=== PATIENT | female | born 1985 | race Caucasian/White ===

== ENCOUNTER → 2017-08-16 13:34 | Outpatient (CLI) | payer MEDICAID, SELFPAY ==
--- NOTE | 2017-08-16 13:38 | MR_ITS ---
MR head/brain wo/w con HISTORY: Severe headache above the eye with lightheadedness and dizziness with facial numbness and tingling, headache above the right eye ITS.REASON: PARESTHESIA, HEADACHE ABOVE THE EYE ORDERING PHYSICIAN: Angelika Armstrong PATIENT AGE: 32 years COMPARISON: None TECHNIQUE: Standard multiplanar multiecho sequences are performed without and with gadolinium enhancement . FINDINGS: No midline shift, mass effect, and cranial hemorrhage, or hydrocephalus. No evidence of acute infarction. No enhancing lesions are evident. The cerebellopontine angle, cerebellum, and brainstem are unremarkable. The pituitary, optic chiasm, and corpus callosum have an unremarkable appearance. No cerebellar ectopia. No large aneurysms evident. Small aneurysms may not be detected with this technique and may be better evaluated with MRA if clinically warranted. No sinus air-fluid level or mastoid effusion IMPRESSION: Negative MRI of the brain without and with contrast.
== END ==
PROVIDERS: Family Provider Internal Medicine Adolescent Medicine; Visit Provider Nurse Practitioner Family
DX: R20.2 Paresthesia of skin (principal); R51 Headache
CPT/HCPCS: 70553; A9576

== ENCOUNTER → 2018-07-26 11:46 | Outpatient (CLI) | payer MEDICAID, SELFPAY ==
--- NOTE | 2018-07-26 11:56 | XR_ITS ---
XR knee RT 3V HISTORY: ITS.REASON: BREE KNEE PAIN ORDERING PHYSICIAN: George Ibrahim MD PATIENT AGE: 33 years COMPARISON: Left knee same date FINDINGS: No fracture or dislocation. No lytic or blastic change. Normal mineralization. No significant arthritic changes evident. No other significant findings IMPRESSION: Negative Knee
--- NOTE | 2018-07-26 11:56 | XR_ITS ---
XR knee LT 3V HISTORY: ITS.REASON: BREE KNEE PAIN ORDERING PHYSICIAN: George Ibrahim MD PATIENT AGE: 33 years COMPARISON: Right knee same date FINDINGS: No fracture or dislocation. No lytic or blastic change. Normal mineralization. No significant arthritic changes evident. No other significant findings IMPRESSION: Negative Knee
== END ==
PROVIDERS: PCP Internal Medicine Adolescent Medicine; Visit Provider Internal Medicine Adolescent Medicine
DX: M25.562 Pain in left knee (principal); M25.561 Pain in right knee
CPT/HCPCS: 73562

== ENCOUNTER → 2018-10-17 09:20 | Outpatient (CLI) | payer MEDICAID, SELFPAY ==
[2018-10-18 19:59] LABS: EBV Ab VCA, IgM <36.0 U/mL (0.0-35.9)
== END ==
PROVIDERS: Visit Provider Nurse Practitioner Family
DX: J02.9 Acute pharyngitis, unspecified (principal); R59.0 Localized enlarged lymph nodes
CPT/HCPCS: 36415; 86665

== ENCOUNTER → 2019-02-05 16:08 | Outpatient (CLI) | payer MEDICAID, SELFPAY ==
--- NOTE | 2019-02-05 | XR_ITS ---
XR ankle RT min 3V HISTORY: Pain following injury ORDERING PHYSICIAN: George Ibrahim MD PATIENT AGE: 33 years Comparison: None FINDINGS: No fracture or dislocation. No lytic or blastic change. There is normal mineralization.. The joint spaces are well-preserved. No significant degenerative/arthritic changes. No erosive changes evident. IMPRESSION: Negative ankle, no acute finding
--- NOTE | 2019-02-05 | XR_ITS ---
XR forearm RT 2V HISTORY: Pain following injury ITS.REASON: SPRAIN ANKLE ORDERING PHYSICIAN: George Ibrahim MD PATIENT AGE: 33 years COMPARISON: None FINDINGS: No obvious fracture, dislocation, lytic change or blastic change. Normal mineralization. Unremarkable soft tissues IMPRESSION: Negative forearm
[2019-02-05 16:39] LABS: Microscopic, Urine URINE MICROSCOPIC (MICROSCOPIC)
[2019-02-05 17:05] LABS: Basophils # 0.1 K/mm3 (0-0.2); Basophils % 0.9 % (0.1-2.0); Eosinophils # 0.1 K/mm3 (0.0-0.4); Eosinophils % 0.9 % (0.1-12.0); Hematocrit 40.7 % (37.0-47.0); Hemoglobin 13.4 g/dL (12.2-16.2); Lymphocytes # 2.9 K/mm3 (0.7-4.5); Lymphocytes % 29.6 % (10-50); Mean Corpuscular HGB Conc 32.9 g/dL (31.8-35.4); Mean Corpuscular Hemoglobin 27.9 pg (27.0-31.2); Mean Corpuscular Volume 84.8 fl (81-99); Mean Platelet Volume 7.9 fl (7.4-10.4); Monocytes # 0.6 K/mm3 (0.1-1.0); Monocytes % 6.6 % (1.7-9.3); Platelet Count 353 K/mm3 (142-424); Red Cell Distribution Width 12.6 % (11.5-17.5); White Blood Count 9.8 K/mm3 (4.8-10.8)
[2019-02-05 18:45] LABS: Alanine Aminotransferase 64 U/L (12-78); Albumin Level 3.5 gm/dL (3.4-5.0); Alkaline Phosphatase 74 U/L (46-116); Anion Gap 15.7 mEq/L (5-15); Aspartate Amino Transferase 25 U/L (15-37); Bilirubin,Direct 0.1 mg/dL (0.0-0.2); Bilirubin,Total 0.3 mg/dL (0.2-1.0); Blood Urea Nitrogen 13 mg/dL (7-18); Carbon Dioxide 24 mmol/L (21.0-32.0); Chloride 105 mmol/L (98-107); Chol/HDL Ratio 6.6 (1-3.5); Cholesterol 185 mg/dL (140-200); Creatinine,Serum 0.81 mg/dL (0.55-1.02); Estimated Glomerular Filt Rate 81 ml/min (>60); Free T4 (Free Thyroxine) 1.06 ng/dl (0.76-1.46); GFR (African American) 99 ML/MIN (>60); Globulin 3.5 gm/dl (1.3-3.2); Glucose 81 mg/dL (74-106); HDL Cholesterol 28 mg/dL (29-89); LDL Cholesterol 117 mg/dL (0-130); Potassium 4.7 mmoL/L (3.5-5.1); Sodium 140 mmol/L (136-145); Thyroid Stimulating Hormone 2.66 uIU/ml (0.358-3.740); Triglycerides 199 mg/dL (30-200); VLDL Cholesterol 40 mg/dL (0-40)
[2019-02-05 18:54] LABS: Hemoglobin A1C 5.7 % (0.0-7.0)
[2019-02-05 19:00] LABS: Amphetamine/Metha Screen,Urine Negative ng/mL (<1000); Barbiturates Screen,Urine Negative ng/mL (<200); Benzodiazepines Screen,Urine Negative ng/mL (<200); Cannabinoid Screen,Urine Negative ng/mL (<50); Cocaine Screen,Urine Negative ng/mL (<300); Methadone Screen,Urine Negative ng/mL (<300); Opiate Screen,Urine Negative ng/mL (<300); Phencyclidine Screen,Urine Negative ng/mL (<25)
[2019-02-05 19:01] LABS: Appearance,Urine CLEAR (Clear); Bilirubin,Urine Negative (Negative); Blood, Urine Negative (Negative); Color,Urine YELLOW (Yellow); Glucose,Urine (UA) Negative (Negative); Ketones,Urine Negative (Negative); Leukocyte Esterase,Urine Negative (Negative); Nitrate,Urine Negative (Negative); Protein,Urine Negative (Negative); Specific Gravity, Urine 1.025 (1.005-1.030); Urobilinogen,Urine 0.2 EU/dl (0.2)
[2019-02-05 19:25] LABS: Bacteria,Urine 1+ /lpf; RBC,Urine Occasional #/hpf (0-3); Squamous Epithelial Cell,Urine Occasional #/hpf (0-5)
[2019-02-05 19:30] LABS: HCG Qualitative, Serum Negative (Negative)
[2019-02-07 10:32] LABS: Vitamin B12 1922 pg/mL (232-1245); Vitamin D 25 Hydroxy 21.2 ng/mL (30.0-100.0)
== END ==
PROVIDERS: Nurse Practitioner Psychiatric/Mental Health; PCP Internal Medicine Adolescent Medicine; Visit Provider Internal Medicine Adolescent Medicine
DX: S93.401A Sprain of unspecified ligament of right ankle, initial encounter (principal); S50.11XA Contusion of right forearm, initial encounter; F32.9 Major depressive disorder, single episode, unspecified; F41.9 Anxiety disorder, unspecified; F43.10 Post-traumatic stress disorder, unspecified; E55.9 Vitamin D deficiency, unspecified
CPT/HCPCS: 36415; 73090; 73610; 80053; 80061; 80305; 81001; 82248; 82607; 82652; 83036; 84439; 84443; 84703; 85025

== ENCOUNTER → 2019-05-06 11:00 | Outpatient (POV) | payer OTHER, SELFPAY | PROVIDERS: Visit Provider Otolaryngology | DX: Z00.00 Encounter for general adult medical examination without abnormal findings (principal) ==

== ENCOUNTER → 2020-01-17 16:59 | Outpatient (CLI) | payer OTHER, SELFPAY ==
[2020-01-17 17:30] LABS: Microscopic, Urine URINE MICROSCOPIC (MICROSCOPIC)
[2020-01-17 17:33] LABS: Appearance,Urine CLOUDY (Clear); Bilirubin,Urine Negative (Negative); Blood, Urine 3+ (Negative); Color,Urine YELLOW (Yellow); Glucose,Urine (UA) Negative (Negative); Ketones,Urine TRACE (Negative); Leukocyte Esterase,Urine 2+ (Negative); Nitrate,Urine Negative (Negative); Protein,Urine TRACE (Negative); Specific Gravity, Urine 1.025 (1.005-1.030); Urobilinogen,Urine 0.2 EU/dl (0.2)
[2020-01-17 17:38] LABS: Bacteria,Urine 1+ /lpf; RBC,Urine 20-50 #/hpf (0-3)
== END ==
PROVIDERS: PCP Internal Medicine Adolescent Medicine; Visit Provider Internal Medicine Adolescent Medicine
DX: R30.0 Dysuria (principal)
CPT/HCPCS: 81001; 87086

== ENCOUNTER → 2020-01-28 15:09 | Outpatient (CLI) | payer OTHER, SELFPAY ==
[2020-01-28 15:23] LABS: Basophils # 0.1 K/mm3 (0-0.2); Basophils % 0.9 % (0.1-2.0); Eosinophils # 0.2 K/mm3 (0.0-0.4); Eosinophils % 1.3 % (0.1-12.0); Hematocrit 41.8 % (37.0-47.0); Lymphocytes # 2.9 K/mm3 (0.7-4.5); Lymphocytes % 22.3 % (10-50); Mean Corpuscular HGB Conc 33.6 g/dL (31.8-35.4); Mean Corpuscular Hemoglobin 30.9 pg (27.0-31.2); Mean Platelet Volume 8.6 fl (7.4-10.4); Monocytes # 0.7 K/mm3 (0.1-1.0); Monocytes % 5.5 % (1.7-9.3); Neutrophils % 70.1 % (37.0-80.0); Platelet Count 342 K/mm3 (142-424); Red Blood Count 4.54 M/mm3 (4.20-5.40); Red Cell Distribution Width 12.7 % (11.5-17.5); White Blood Count 12.8 K/mm3 (4.8-10.8)
[2020-01-28 16:59] LABS: Chloride 106 mmol/L (98-107)
[2020-01-28 17:00] LABS: Potassium 5.2 mmoL/L (3.5-5.1); Sodium 137 mmol/L (136-145)
[2020-01-28 17:02] LABS: Alanine Aminotransferase 74 U/L (12-78); Alkaline Phosphatase 70 U/L (38-126); Anion Gap 10.2 mEq/L (5-15); Aspartate Amino Transferase 44 U/L (14-36); Bilirubin,Total 0.3 mg/dl (0.2-1.3); Blood Urea Nitrogen 14 mg/dl (7-17); Carbon Dioxide 26 mmol/L (22.0-30.0); Cholesterol 242 mg/dl (140-200); Estimated Glomerular Filt Rate 96 ml/min (>60); GFR (African American) 116 ML/MIN (>60); Triglycerides 318 mg/dl (30-150); VLDL Cholesterol 64 mg/dL (0-40)
[2020-01-28 17:03] LABS: Albumin Level 4.1 g/dl (3.5-5.0); Albumin/Globulin Ratio 1.4 (1.1-1.8); Calcium 9.2 mg/dl (8.4-10.2); Chol/HDL Ratio 6.5 (1-3.5); Globulin 2.9 g/dL (1.3-3.2); Glucose 78 mg/dl (74-100); HDL Cholesterol 37 mg/dl (40-60)
[2020-01-28 17:14] LABS: Direct LDL Cholesterol 161.18 mg/dL (100-129)
[2020-01-28 17:42] LABS: Thyroid Stimulating Hormone 2.81 uIU/mL (0.465-4.68)
[2020-01-28 20:06] LABS: Hemoglobin A1C 5.8 % (4.0-6.0)
== END ==
PROVIDERS: Visit Provider Internal Medicine Adolescent Medicine
DX: E66.9 Obesity, unspecified (principal); R53.83 Other fatigue
CPT/HCPCS: 36415; 80053; 80061; 83036; 84443; 85025

== ENCOUNTER → 2020-01-30 14:43 | Outpatient (CLI) | payer OTHER, SELFPAY ==
--- NOTE | 2020-01-30 14:51 | CT_ITS ---
PROCEDURE: CT ABDOMEN PELVIS WO CON CLINICAL INDICATION: HEMATURIA, MICROSCOPIC Hematuria with painful urination COMPARISON: [facility] CTA-CHEST from 05/20/2015 TECHNIQUE: Axial images obtained with sagittal and coronal reformats. All CT scans at the facility use one or more dose reduction, viz: automated exposure control, ma/kV adjustment per patient size (including targeted exams where dose is matched to indication, i.e. head), or iterative reconstruction technique. FINDINGS: LOWER THORAX: Stable nodular opacity is present in the left lung base posteriorly and may be due to an area of scarring measuring approximately 5 mm. ABDOMEN & PELVIS: Diffuse fatty liver infiltration. There is a 13 mm area of I so density in the hepatic dome on the left. This could be due to an area of focal fatty sparing or a small isodense nodule. The spleen, adrenal glands, pancreas, and kidneys have an unremarkable appearance. No renal or ureteral calculi. No hydronephrosis or obvious renal mass. There are scattered small mesenteric lymph nodes. Unremarkable appendix. No intestinal obstruction or free air. There is a mild amount of retained colonic feces. There is an area of mucosal thickening involving the/rectosigmoid junction best seen on image 103 series 3 which has a somewhat apple-core appearance. This is 2.6 cm in length. The there is a small umbilical hernia which contains fat. Scattered small nodes are present in the inguinal region. No acute bony findings. IMPRESSION: 1. No acute finding. 2. No renal or ureteral calculi. 3. Fatty liver with 13 mm I so density in the hepatic dome which could be due to an area of focal fatty sparing or a hepatic nodule. MRI with liver protocol may provide further evaluation. 4. Focal area of mucosal thickening of the rectosigmoid region of the colon. This could be due to nondistention or the beginning of an apple-core lesion. Sigmoidoscopy or barium enema may provide further evaluation. Dictated by: Leandro Gayle MD 01/31/2020 11:31 Electronically signed by Leandro Gayle MD in [place] 01/31/2020 11:31
== END ==
PROVIDERS: PCP Internal Medicine Adolescent Medicine; Visit Provider Internal Medicine Adolescent Medicine
DX: R31.29 Other microscopic hematuria (principal)
CPT/HCPCS: 74176

== ENCOUNTER → 2020-02-19 10:42 | Outpatient (CLI) | payer OTHER, SELFPAY ==
--- NOTE | 2020-02-19 10:48 | MR_ITS ---
PROCEDURE: MR ABDOMEN WO/W CON CLINICAL INDICATION: LIVER MASS Pain, liver lesion versus focal fatty sparing. COMPARISON: [facility] CTA-CHEST from 05/20/[address] ABDOMEN PELVIS WO CON from 01/30/2020 TECHNIQUE: Routine multiplanar multi echo sequences are performed without and with gadolinium enhancement. FINDINGS: There is diffuse fatty liver infiltration. On the CT scan there was an I so density in the left hepatic lobe superiorly. No obvious lesion is evident in this area. Pre and post enhanced images of the liver show no abnormal areas of enhancement. The gallbladder, spleen, adrenal glands, pancreas, and kidneys have an unremarkable appearance. IMPRESSION: Fatty liver otherwise negative MRI of the abdomen. No obvious liver lesions apparent. Dictated b Leandro Gayle MD 02/24/2020 12:13 Leandro Gayle MD in [place] 02/24/2020 12:13
== END ==
PROVIDERS: PCP Internal Medicine Adolescent Medicine; Visit Provider Internal Medicine Adolescent Medicine
DX: R16.0 Hepatomegaly, not elsewhere classified (principal)
CPT/HCPCS: 74183; A9576

== ENCOUNTER → 2020-11-09 16:44 | Outpatient (CLI) | payer OTHER, SELFPAY ==
[2020-11-09 18:10] LABS: Basophils # 0.1 K/mm3 (0-0.2); Basophils % 0.8 % (0.1-2.0); Eosinophils # 0.4 K/mm3 (0.0-0.4); Eosinophils % 2.6 % (0.1-12.0); Hematocrit 42.3 % (37.0-47.0); Hemoglobin 14.1 g/dL (12.2-16.2); Lymphocytes # 3.4 K/mm3 (0.7-4.5); Lymphocytes % 25.1 % (10-50); Mean Corpuscular HGB Conc 33.4 g/dL (31.8-35.4); Mean Corpuscular Hemoglobin 29.9 pg (27.0-31.2); Mean Corpuscular Volume 89.5 fl (81-99); Mean Platelet Volume 7.9 fl (7.4-10.4); Monocytes # 0.7 K/mm3 (0.1-1.0); Monocytes % 5.2 % (1.7-9.3); Neutrophils % 66.3 % (37.0-80.0); Platelet Count 355 K/mm3 (142-424); Red Blood Count 4.73 M/mm3 (4.20-5.40); Red Cell Distribution Width 13.5 % (11.5-17.5); White Blood Count 13.5 K/mm3 (4.8-10.8)
[2020-11-09 19:05] LABS: Chloride 104 mmol/L (98-107); Potassium 4.8 mmoL/L (3.5-5.1); Sodium 136 mmol/L (136-145)
[2020-11-09 19:08] LABS: Alanine Aminotransferase 56 U/L (12-78); Albumin Level 4.4 g/dl (3.5-5.0); Albumin/Globulin Ratio 1.6 (1.1-1.8); Alkaline Phosphatase 75 U/L (38-126); Anion Gap 12.8 mEq/L (5-15); Aspartate Amino Transferase 57 U/L (14-36); Bilirubin,Total 0.4 mg/dl (0.2-1.3); Blood Urea Nitrogen 16 mg/dl (7-17); Carbon Dioxide 24 mmol/L (22.0-30.0); Cholesterol 215 mg/dl (140-200); Estimated Glomerular Filt Rate 82 ml/min (>60); GFR (African American) 99 ML/MIN (>60); Globulin 2.8 g/dL (1.3-3.2); Glucose 88 mg/dl (74-100); Total Protein,Serum 7.2 g/dl (6.3-8.2); Triglycerides 182 mg/dl (30-150); VLDL Cholesterol 36 mg/dL (0-40)
[2020-11-09 19:09] LABS: Calcium 9.7 mg/dl (8.4-10.2); Chol/HDL Ratio 6.5 (1-3.5); HDL Cholesterol 33 mg/dl (40-60)
[2020-11-09 19:19] LABS: Direct LDL Cholesterol 153.92 mg/dL (100-129)
[2020-11-11 08:16] LABS: Hep A Ab, IgM Negative (Negative); Hepatitis B Core Antibody IgM Negative (Negative); Hepatitis B Surface Antigen Negative (Negative)
[2020-11-11 15:18] LABS: Estradiol 45.1 pg/mL (.); FSH 6.1 mIU/mL (.); HIV Screen 4th Generation wRfx Non Reactive (Non Reactive); HSV 2 IgG, Type Spec <0.91 index (0.00-0.90); Hepatitis C Antibody <0.1 s/co ratio (0.0-0.9); LH 10.2 mIU/mL (.); Rapid Plasma Reagin Ab Titer Non Reactive (NonRea<1:1)
== END ==
PROVIDERS: Visit Provider Nurse Practitioner Obstetrics & Gynecology
DX: Z01.419 Encounter for gynecological examination (general) (routine) without abnormal findings (principal); R10.2 Pelvic and perineal pain; N92.6 Irregular menstruation, unspecified; Z72.51 High risk heterosexual behavior; R87.613 High grade squamous intraepithelial lesion on cytologic smear of cervix (HGSIL)
CPT/HCPCS: 80053; 80061; 80074; 82670; 83001; 83002; 85025; 86592; 86695; 86703; 86790; G0432

== ENCOUNTER 2020-11-11 14:28 | Outpatient (CLI) | payer OTHER, SELFPAY ==
[2020-11-11 15:00] VITALS: BP 111/71; PULSE 80; RESP 18; TEMP 36.1; O2SAT 97
== END 2020-11-11 15:20 | disposition home or self-care (01) ==
LOC: LAB 14:29 → INF 14:46
PROVIDERS: Visit Provider Nurse Practitioner Obstetrics & Gynecology
DX: R10.2 Pelvic and perineal pain (principal); N92.6 Irregular menstruation, unspecified
CPT/HCPCS: 96372

== ENCOUNTER → 2021-06-02 16:12 | Outpatient (CLI) | payer OTHER, SELFPAY ==
[2021-06-06 22:07] LABS: Neisseria gonorrhoeae, NAA Negative (Negative)
== END ==
PROVIDERS: Visit Provider Obstetrics & Gynecology
DX: N89.8 Other specified noninflammatory disorders of vagina (principal); Z86.19 Personal history of other infectious and parasitic diseases
CPT/HCPCS: 87491; 87591

== ENCOUNTER 2021-08-09 18:54 | Emergency (ER) | payer OTHER, SELFPAY ==
[2021-08-09] VITALS (9 sets, daily range): BP systolic 105–148; BP diastolic 58–86; PULSE 85–114; RESP 18–20; TEMP 37–39.2; O2SAT 95–99; BMI 42.7
--- NOTE | 2021-08-09 20:55 | XR_ITS ---
PROCEDURE INFORMATION: Exam: XR Chest Exam date and time: 08/09/2021 8:55 PM Age: 36 years old Clinical indication: Fever; Patient HX: Possibly covid positive per patient. TECHNIQUE: Imaging protocol: XR of the chest. Views: 2 views. COMPARISON: CR CXR CHEST(2 VIEWS-NOT PORTABLE) 05/20/2015 6:03 AM FINDINGS: Lungs: Subtle interstitial haziness could reflect interstitial pneumonia. No consolidation. Pleural spaces: Unremarkable. No pleural effusion. No pneumothorax. Heart/Mediastinum: Unremarkable. No cardiomegaly. Bones/joints: Unremarkable. IMPRESSION: Subtle interstitial haziness could reflect interstitial pneumonia.
[2021-08-09 21:21] LABS: Influenza A, PCR Not Detected (NotDetected); Influenza B, PCR Not Detected (NotDetected)
[2021-08-09 21:30] LABS: Basophils # 0.3 K/mm3 (0-0.2); Basophils % 1.8 % (0.1-2.0); Eosinophils # 0.1 K/mm3 (0.0-0.4); Eosinophils % 0.6 % (0.1-12.0); Hematocrit 47.7 % (37.0-47.0); Hemoglobin 15.6 g/dL (12.2-16.2); Lymphocytes % 6.8 % (10-50); Mean Corpuscular HGB Conc 32.8 g/dL (31.8-35.4); Mean Corpuscular Hemoglobin 30.6 pg (27.0-31.2); Mean Corpuscular Volume 93.1 fl (81-99); Mean Platelet Volume 8.1 fl (7.4-10.4); Neutrophils # 12.2 K/mm3 (1.8-7.8); Neutrophils % 83.8 % (37.0-80.0); Platelet Count 355 K/mm3 (142-424); Red Blood Count 5.12 M/mm3 (4.20-5.40); Red Cell Distribution Width 13.1 % (11.5-17.5); White Blood Count 14.6 K/mm3 (4.8-10.8)
[2021-08-09 21:38] LABS: Chloride 100 mmol/L (98-107); Sodium 135 mmol/L (136-145)
[2021-08-09 21:39] LABS: Potassium 4.4 mmoL/L (3.5-5.1)
[2021-08-09 21:41] LABS: Alanine Aminotransferase 117 U/L (12-78); Albumin Level 4.7 g/dl (3.5-5.0); Albumin/Globulin Ratio 1.2 (1.1-1.8); Alkaline Phosphatase 88 U/L (38-126); Anion Gap 13.4 mEq/L (5-15); Aspartate Amino Transferase 183 U/L (14-36); Bilirubin,Total 0.4 mg/dl (0.2-1.3); Blood Urea Nitrogen 13 mg/dl (7-17); Carbon Dioxide 26 mmol/L (22.0-30.0); Creatinine Clearance Estimated 81 mL/min (50-200); Estimated Glomerular Filt Rate 71 ml/min (>60); GFR (African American) 86 ML/MIN (>60); Globulin 3.8 g/dL (1.3-3.2); Total Protein,Serum 8.5 g/dl (6.3-8.2)
[2021-08-09 21:42] LABS: Calcium 9.3 mg/dl (8.4-10.2); Glucose 100 mg/dl (74-100)
[2021-08-09 21:47] LABS: C-Reactive Protein 24.8 mg/L (0-4)
[2021-08-09 21:55] LABS: Coronavirus 19, PCR Detected (NotDetected)
[2021-08-09 22:13] LABS: Erythrocyte Sedimentation Rate 15 mm/hr (0-20)
--- NOTE | 2021-08-09 23:38 | HMH.EDFEV ---
ED Disposition Clinical Impression: COVID-19 Disposition: Home, Self-Care Condition on Discharge: Good Instructions: DI for COVID-19 (Suspected or Confirmed ) Additional Instructions: fluids and call pcp for radha cain Prescriptions: dexAMETHasone [Decadron] 6 mg PO DAILY #6 tab Transmission Status: Pending to [facility] # Azithromycin [Zithromax 250mg tab] 250 mg PO DIRECTED #6 tab Transmission Status: Pending to [facility] #[id number] Referrals: George Ibrahim MD [Primary Care Provider] - - Critical Care Critical Care Time: No Attestation: On 08/09/21, the high probability of a clinically significant, sudden or life threatening deterioration of the following system(s) required my full and direct attention, intervention and personal management. The time I documented below is in addition to time spent performing reported procedures but includes the following listed in this critical care notation. Medical Decision Making - Medical Records Medical records reviewed: Yes: I reviewed the patient's medical records. - Live Inquiry Pt receiving controlled substance: No Vital Signs: 08/09/21 18:56 Temperature 102.5 F H Temperature Source Oral Pulse Rate [Right] 114 H Respiratory Rate 20 Blood Pressure [Right Arm] 143/86 H Blood Pressure Mean [Right Arm] 105 02 Sat by Pulse Oximetry 98 - Lab Data Lab results reviewed: Yes: I reviewed the patient's lab results. Lab Results 08/09/21 20:50: SARS-CoV-2 (PCR) Detected A, Influenza A Untype (PCR) Not detected, Influenza Type B (PCR) Not detected 08/09/21 21:10: WBC 14.6 H, RBC 5.12, Hgb 15.6, Hct 47.7 H, MCV 93.1, MCH 30.6, MCHC 32.8, RDW 13.1, Plt Count 355, MPV 8.1, Neut % (Auto) 83.8 H, Lymph % (Auto) 6.8 L, Towns % (Auto) 7.0, Eos % (Auto) 0.6, Baso % (Auto) 1.8, Neut # (Auto) 12.2 H, Lymph # (Auto) 1.0, Towns # (Auto) 1.0, Eos # (Auto) 0.1, Baso # (Auto) 0.3 H, ESR 15 08/09/21 21:10: Sodium 135 L, Potassium 4.4, Chloride 100, Carbon Dioxide 26, Anion Gap 13.4, BUN 13, Creatinine 0.90, Estimated Creat Clear 81, Estimated GFR 71, Est GFR ( Amer) 86, Glucose 100, Calcium 9.3, Total Bilirubin 0.4, AST 183 H, ALT 117 H, Alkaline Phosphatase 88, C-Reactive Protein 24.8 H, Total Protein 8.5 H, Albumin 4.7, Globulin 3.8 H, Albumin/Globulin Ratio 1.2 Result diagrams: 08/09/21 21:10 08/09/21 21:10 Orders (Tests/Meds): ED MEDICATIONS Generic Name Dose Route Start Last Admin Trade Name Freq PRN Reason Stop Dose Admin Sodium Chloride 1,000 mls @ 999 mls/hr 08/09/21 21:00 08/09/21 21:22 Sod Chlor 0.9% 1000ml Bag IV 08/09/21 22:00 999 mls/hr .Q1H1M KATIE Administration Discontinued Medications Generic Name Dose Route Start Last Admin Trade Name Freq PRN Reason Stop Dose Admin Acetaminophen 1,000 mg 08/09/21 20:56 08/09/21 21:23 Acetaminophen 500mg Tab PO 08/09/21 20:57 1,000 mg ONCE ONE Administration Dexamethasone Sodium Phosphate 10 mg 08/09/21 20:56 08/09/21 21:22 Dexamethasone 4mg/Ml 5ml Mdv IV 08/09/21 20:57 10 mg ONCE ONE Administration Ketorolac Tromethamine 30 mg 08/09/21 20:56 08/09/21 21:22 Ketorolac 30mg/Ml Vial IV 08/09/21 20:57 30 mg ONCE ONE Administration Ondansetron HCl 4 mg 08/09/21 20:56 08/09/21 21:22 Ondansetron 4mg/2ml Vial IV 08/09/21 20:57 4 mg ONCE ONE Administration - Radiology Data #1 Image(s): Chest Image Reviewed: Yes I have reviewed radiologist's interpretation Preliminary Findings: Abnormal Medical Decision Narrative: has covid-19 and has stable exam and labs Fever HPI - General Chief Complaint: Fever Stated Complaint: Exposed,fever,chills,sore throat,cough congestion Time Seen by Provider: 08/09/21 23:38 Mode of Arrival: Ambulatory Source of Information: Patient, Medical Record Limitations: No Limitations Description of Symptoms (Recalled from ER Triage Doc. by RN): pt c/o ENAMORADO, fever, body aches,n/v that started
== END 2021-08-10 00:01 | disposition home or self-care (01) ==
PROVIDERS: Emergency Provider Emergency Medicine; PCP Internal Medicine Adolescent Medicine
DX: U07.1 COVID-19 (principal); F41.8 Other specified anxiety disorders; F17.210 Nicotine dependence, cigarettes, uncomplicated
CPT/HCPCS: 71046; 80053; 85025; 85651; 86140; 96365; 96375; 99283; C9803; J2405; U0003; U0005

== ENCOUNTER → 2021-10-06 09:34 | Outpatient (CLI) | payer OTHER, SELFPAY ==
[2021-10-10 06:01] LABS: Neisseria gonorrhoeae, NAA Negative (Negative)
== END ==
PROVIDERS: Visit Provider Obstetrics & Gynecology
DX: N89.8 Other specified noninflammatory disorders of vagina (principal)
CPT/HCPCS: 87210; 87491; 87591

== ENCOUNTER → 2022-01-11 14:02 | Outpatient (CLI) | payer OTHER, SELFPAY ==
--- NOTE | 2022-01-11 14:07 | US_ITS ---
FINAL REPORT CLINICAL HISTORY: pelvic pain COMPARISON: June 29, 2016 FINDINGS: Transvaginal sonographic images of the pelvis were obtained. The uterus measures 8.3 x 4.7 x 4.0 cm. The endometrium measures 5 mm, which is within normal limits. The right ovary measures 5.2 cm in length and left ovary measures 4.6 cm in length. Normal blood flow seen to the ovaries. Small follicles are present. There is no evidence of free fluid. The myometrium is somewhat heterogeneous without focal mass. There is a 4.1 cm cyst involving the right ovary. There is a 3.3 cm septated cystic mass involving the left ovary, may represent complex cyst, neoplasm thought less likely. IMPRESSION: Septated cystic mass involving the left ovary, may represent complex cyst, neoplasm thought less likely. Follow-up ultrasound may be helpful. Somewhat heterogeneous myometrium without focal mass. Reviewed, Interpreted and Dictated by Von Angel III, MD Transcribed by Jamilah Sellers Authenticated and [facility]
== END ==
PROVIDERS: PCP Internal Medicine Adolescent Medicine; Visit Provider Obstetrics & Gynecology
DX: R10.2 Pelvic and perineal pain (principal)
CPT/HCPCS: 76830

== ENCOUNTER → 2022-02-15 13:47 | Outpatient (CLI) | payer OTHER, SELFPAY ==
--- NOTE | 2022-02-15 13:47 | US_ITS ---
FINAL REPORT TECHNIQUE: Sonographic images of the pelvis were obtained transvaginally. CLINICAL HISTORY: 6 week f/u COMPARISON: 01/11/2025 FINDINGS: The uterus is anteverted and anteflexed. It measures 9.2 x 4.4 x 5.3. The endometrial stripe measures 5 mm. There is a sub endometrial cyst. The myometrium is heterogeneous and there are small fibroids. There are nabothian cysts in the cervix. A scar is seen along the lower anterior uterus. The right ovary measures 5.1 x 4.8 x 3.2 cm. There are multiple follicles and cysts with the largest cyst measuring 3.2 cm. The left ovary measures 5.3 x 2.9 x 3.2 cm. There are multiple follicles in cysts with the largest cyst measuring 2.9 cm. Color imaging to the ovaries is within normal limits. There is no free fluid. IMPRESSION: 1. Heterogeneous myometrium with fibroids and subendometrial cysts, adenomyosis is not excluded. 2. Bilateral ovarian cysts, not unexpected in a patient of this age. Consider follow-up exam in 6 or 10 weeks. Reviewed, Interpreted and Dictated by Caty Canada MD Transcribed by Priscilla Palomino Authenticated and [facility]
== END ==
PROVIDERS: PCP Internal Medicine Adolescent Medicine; Visit Provider Obstetrics & Gynecology
DX: R10.2 Pelvic and perineal pain (principal)
CPT/HCPCS: 76830

== ENCOUNTER → 2022-04-25 09:51 | Outpatient (CLI) | payer OTHER, SELFPAY ==
[2022-04-25 10:34] LABS: Basophils # 0.1 K/mm3 (0-0.2); Eosinophils # 0.1 K/mm3 (0.0-0.4); Eosinophils % 1.3 % (0.1-12.0); Hematocrit 45.3 % (37.0-47.0); Hemoglobin 14.9 g/dL (12.2-16.2); Lymphocytes # 3.2 K/mm3 (0.7-4.5); Lymphocytes % 28.8 % (10-50); Mean Corpuscular HGB Conc 32.9 g/dL (31.8-35.4); Mean Corpuscular Volume 91.4 fl (81-99); Mean Platelet Volume 7.7 fl (7.4-10.4); Monocytes # 0.6 K/mm3 (0.1-1.0); Monocytes % 5.7 % (1.7-9.3); Neutrophils % 63.2 % (37.0-80.0); Platelet Count 415 K/mm3 (142-424); Red Blood Count 4.96 M/mm3 (4.20-5.40); Red Cell Distribution Width 13.2 % (11.5-17.5); White Blood Count 11.1 K/mm3 (4.8-10.8)
[2022-04-25 13:00] LABS: Chloride 104 mmol/L (98-107); Potassium 4.8 mmoL/L (3.5-5.1); Sodium 141 mmol/L (136-145)
[2022-04-25 13:03] LABS: Alanine Aminotransferase 63 U/L (12-78); Albumin Level 4.2 g/dl (3.5-5.0); Albumin/Globulin Ratio 1.4 (1.1-1.8); Alkaline Phosphatase 93 U/L (38-126); Anion Gap 16.8 mEq/L (5-15); Aspartate Amino Transferase 50 U/L (14-36); Blood Urea Nitrogen 14 mg/dl (7-17); Carbon Dioxide 25 mmol/L (22.0-30.0); Estimated Glomerular Filt Rate 71 ml/min (>60); GFR (African American) 86 ML/MIN (>60); Globulin 2.9 g/dL (1.3-3.2); Glucose 98 mg/dl (74-100); Total Protein,Serum 7.1 g/dl (6.3-8.2)
[2022-04-25 13:08] LABS: Bilirubin,Total < 0.1 mg/dl (0.2-1.3)
[2022-04-25 13:37] LABS: Amphetamine/Metha Screen,Urine Negative ng/ml (<1000); Barbiturates Screen,Urine Negative ng/ml (<200)
[2022-04-25 13:38] LABS: Benzodiazepines Screen,Urine Negative ng/ml (<200)
[2022-04-25 13:40] LABS: Cannabinoid Screen,Urine Negative ng/ml (<50)
[2022-04-25 13:41] LABS: Cocaine Screen,Urine Negative ng/ml (<300)
[2022-04-25 13:42] LABS: Methadone Screen,Urine Negative ng/ml (<300)
[2022-04-25 13:44] LABS: Opiate Screen,Urine Negative ng/ml (<300); Phencyclidine Screen,Urine Negative ng/ml (<25)
[2022-04-25 15:16] LABS: HCG,Quantitative < 2 mIU/ml (0-5.42)
== END ==
PROVIDERS: PCP Internal Medicine Adolescent Medicine; Visit Provider Obstetrics & Gynecology
DX: Z01.812 Encounter for preprocedural laboratory examination (principal); Z20.822 Contact with and (suspected) exposure to COVID-19; R10.2 Pelvic and perineal pain; N92.0 Excessive and frequent menstruation with regular cycle
CPT/HCPCS: 36415; 80053; 80305; 84702; 85025; C9803; U0003; U0005

== ENCOUNTER 2022-04-27 06:01 | Day surgery (SDC) | payer OTHER, SELFPAY ==
[2022-04-25 10:43] VITALS: BMI 39.4
[2022-04-27] VITALS (15 sets, daily range): BP systolic 100–153; BP diastolic 61–93; PULSE 70–112; RESP 17–27; TEMP 36.8–43; O2SAT 93–99
--- NOTE | 2022-04-27 07:12 | EXP.ANES.CKL ---
PFSH PFSH Medical History Allergies Anxiety Depression History of COVID-19 History of gastroesophageal reflux (GERD) PTSD (post-traumatic stress disorder) Tonsillectomy planned Surgical History H/O LEEP History of section History of endometrial ablation Hx of dilation and curettage Hx of tubal ligation Family History Father Family hx-stroke Mother Family hx-stroke Diabetes Asthma COPD (chronic obstructive pulmonary disease) Anxiety Depression Social History Smoking Status: Current every day smoker tobacco type: cigarettes packs per day: 1 years smoked: 16 second hand exposure: Yes alcohol intake: current substance use type: marijuana current occupational status: employed Travel in the last 8 weeks: None household members: children housing: house [facility] Anesthesia Checklist Patient Identification Patient Identification: Arm Band and Verbal (Name & ) Structural Data Admitted From: Home Planned Operative Procedure/s: Dx lap Consent for Planned Operative Procedure(s) Verified: Yes NPO Status Verified Time NPO: 00:00 Chart Verification Results Verified: CBC and BMP Additional verifications Anesthesia Reactions: No Hx Blood Transfusions: No Blood Transfusion Reaction: No Airway Assessment C-Spine Mobility Assessed: Yes TMJ Mobility Assessed: Yes Dentition: Good Dentition Neurological Assessment Level of Consciousness: Awake Hx Seizures: No Numbness or tingling in extremities: No Anesthesia Plan Anesthesia Risk discussed: Yes Anesthesia Plan: Verified ASA Class: I Anesthesia Type: General
--- NOTE | 2022-04-27 09:06 | P.PNANES_ITS ---
[facility] Anesthesia Record Part I Anesthesia Record I Intake, IV Amount: 700 Estimated blood loss (mL): 5 Urine output (mL): 0 Blood Pressure: 153/93 SaO2: 93 Pulse Rate: 112 Respiratory Rate: 27 Temperature: 99.1 F Patient is:: Awake Stable to PACU at:: 09:05
--- NOTE | 2022-04-27 10:02 | EXP.OP.NOTE ---
Date of procedure: 04/27/22 Pre-op Diagnosis:: 1. Pelvic pain 2. Bilateral ovarian cysts Post-op Diagnosis:: same Procedure performed:: Diagnostic laparoscopy Incision and drainage left ovarian cyst Surgeon:: Gayatri Bañuelos MD [employer] RECEIVING CLERK:: Briana Hitchcock Anesthesia: GETA Estimated blood loss (mL): 5 Operative findings:: polycystic ovaries multiple simple cysts left ovary no right ovarian cyst hematoma left uterine cornua at fallopian tube stump Operative note:: The patient was taken to the operating room and general anesthesia was administered. She was prepped/draped in lithotomy position. The cervix was stenotic and would not accomodate the uterine manipulator, so a sponge stick was placed in the vagina. Gloves were changed and attention was turned to the abdomen. A 5mm skin incision was made in the umbilical fold and the verees needle was inserted through the peritoneum and into the abdominal cavity in standard fashion. The abdomen was insufflated with CO2 gas. A 5mm non-bladed trocar was inserted directly into the abdominal cavity and appropriate placement was confirmed with the laparoscope. No intra-abdominal injuries occurred during entry into the abdominal cavity, as confirmed visually with the laparoscope. The patient was placed in trendelenburg and a 5mm skin incision was made 2cm above the pubic symphysis. A 5mm non-bladed trocar was inserted under direct visualization, without complication. The uterus was elevated out of the pelvis in order to better visualize the anatomy. A survey of the pelvis and abdomen revealed the findings noted above. The patient had a history of a previous bilateral salpingectomy, and there was a 2x1cm hematoma in the location of the left fallopian tube stump at the cornua. This appears to have been mistakenly identified as a uterine fibroid on previous pelvic ultrasound. Both ovaries appeared polycystic, and the left ovary had 2 simple cysts approsimately 2 and 3cm in size. No pelvic adhesions were noted other than mild vesico-uterine adhesions from previous c section. No evidence of endometriosis was seen. The left ovarian cysts were incised with the harmonic scalpel and drained of serous fluid. The abdomen was then evacuated of gas and all trocars removed. The skin incisions were closed with 4-0 monocryl and dermabond. The sponge stick was removed from the vagina. All sponge/lap/needle/instrument counts correct. Total EBL: 5 cc. The patient was taken out of lithotomy position, extubated and taken to the PACU in stable condition. Condition: stable Disposition: PACU Specimens:: none Complications:: none
--- NOTE | 2022-04-27 10:56 | PC.NURSE ---
late entries.... 0929-pt reports c/o pain to pelvis and rates 8/10, medicating per eMAR for pain, pt drinking sips of ice water w/out difficulty, no c/o nausea voiced, pt reports c/o discomfort with deep breathing-instructed and pt demostrated use of incentive spirometer to assist with breathing efforts and comfort, will continue to monitor 0932-detailed report given at bedside to SUJATHA Landry, pt continues to be medicated for pain as needed per eMAR, will continue to monitor 0935-pt transported to post op via stretcher w/ana rails up and left in care of SUJATHA Landry and SUJATHA Rueda, pt reports pain is easing and rates 5-6/10, pt appears to be resting easier and reports breathing effort improves with use of incentive spirometer, vss, pt stable
--- NOTE | 2022-04-28 09:22 | P.PNANES_ITS ---
[facility] Anesthesia Record Part II Anesthesia Record Part II Discharge Time: 09:35 Destination: Surgical Day Care (OP Surgery) PACU nurse assessment reviewed?: Yes Patient Condition:: Good Anesthesia Complications:: None Swallowing reflex intact?: Yes Cyanosis?: No Blood Pressure: 123/78 Pulse Rate: 87 Temperature: 98.2 F Mental Status: Alert & Oriented Pain level:: 6 Nausea and/or vomitting:: None Intake, IV Amount: 0
[2022-04-28 09:23] VITALS: BP 123/78; PULSE 87; TEMP 36.8
== END 2022-04-27 11:40 | disposition home or self-care (01) ==
PROVIDERS: PCP Obstetrics & Gynecology; Visit Provider Obstetrics & Gynecology
PROC: (CPT 49320; principal; 2022-04-27 07:30)
DX: Z90.79 Acquired absence of other genital organ(s); E28.2 Polycystic ovarian syndrome; Z72.0 Tobacco use; Z79.899 Other long term (current) drug therapy
CPT/HCPCS: 49322; 96374; J2405

== ENCOUNTER 2022-05-12 08:45 | Emergency (ER) | payer OTHER, SELFPAY ==
[2022-05-12] VITALS (10 sets, daily range): BP systolic 95–117; BP diastolic 38–64; PULSE 58–75; RESP 17–18; TEMP 36.8; O2SAT 96–99; BMI 32.3
[2022-05-12 09:26] LABS: Appearance,Urine SL CLOUDY (Clear); Bilirubin,Urine Negative (Negative); Blood, Urine Negative (Negative); Color,Urine YELLOW (Yellow); Glucose,Urine (UA) Negative (Negative); Ketones,Urine Negative (Negative); Leukocyte Esterase,Urine Negative (Negative); Microscopic, Urine URINE MICROSCOPIC (MICROSCOPIC); Nitrate,Urine Negative (Negative); Protein,Urine Negative (Negative); Urobilinogen,Urine 0.2 EU/dl (0.2)
--- NOTE | 2022-05-12 09:34 | CT_ITS ---
FINAL REPORT TECHNIQUE: After the administration of intravenous contrast, axial images were obtained through the abdomen and pelvis by computed tomography. This study was performed with technique to keep radiation doses as low as reasonably achievable, (ALARA). Individualized dose reduction techniques using automated exposure control or adjustment of the MA and/or KV according to the patient's size were employed. CLINICAL HISTORY: lower abd and pelvic pain with cramping. COMPARISON: 01/30/2020 FINDINGS: Abdomen: The lung bases demonstrate a stable, 3 mm nodule at the left lung base consistent with a benign nodule. No follow-up needed per Jules criteria. The liver is fatty infiltrated. The spleen is unremarkable. The adrenals are normal. The pancreas is unremarkable. The kidneys enhance appropriately. The aorta is normal in caliber. There is no free fluid or adenopathy. Pelvis: The appendix is normal. There are scattered diverticula within the sigmoid colon. The urinary bladder is unremarkable. There is no free fluid or adenopathy. There is nonspecific, favor muscular hypertrophy or inflammation. There is a 38 mm presumed left ovarian cyst. IMPRESSION: No acute intra-abdominal process. Reviewed, Interpreted and Dictated by Von Angel III, MD Transcribed by Paola Gross Authenticated and [facility]
[2022-05-12 09:40] LABS: Bacteria,Urine Trace /lpf; Squamous Epithelial Cell,Urine 20-50 #/hpf (0-5)
--- NOTE | 2022-05-12 09:41 | HMH.EDGENADL ---
Discharge Plan Disposition Patient Disposition: Home, Self-Care Condition: Good Prescriptions Prescriptions: No Action cyanocobalamin (vitamin B-12) [Vitamin B-12] 500 mcg tablet 1,000 mcg PO DAILY cholecalciferol (vitamin D3) 25 mcg (1,000 unit) capsule 25 mcg PO DAILY famotidine 20 mg tablet 20 mg PO DAILY Label Comments: TAKE 1 TABLET BY MOUTH TWICE DAILY valacyclovir 1 gram tablet 1 g PO NEEDED PRN (Reason: HERPES) fluticasone propionate 50 mcg/actuation spray,suspension 1 spray INTRANASAL NEEDED PRN (Reason: allergies) Label Comments: SHAKE LIQUID AND USE 2 SPRAYS IN EACH NOSTRIL EVERY DAY diclofenac sodium 75 mg tablet,delayed release (DR/EC) 75 mg PO BID oxycodone 5 mg tablet 5 mg PO Q6H PRN (Reason: pain) Qty: 15 0RF Referrals Follow up/Referrals: George Ibrahim MD [Primary Care Provider] - See instructions Activity Restrictions/Add. Instructions Additional Instructions/Restrictions: Follow-up with gynecology as scheduled. If you have any other concerning signs or symptoms, return to your primary care provider, gynecology, or ED for further evaluation. Clinical Impressions Clinical Impression: Pelvic pain Discharge ED Provider: Danish Calloway General Adult HPI General Chief complaint: PAIN Stated complaint: pelvic pain, no accident Time Seen by Provider: 05/12/22 09:00 Mode of Arrival: Ambulatory Source of Information: Patient Limitations: No Limitations Description of Symptoms (Recalled from ER Triage Doc. by RN): pt to ed c/o pelvic pain. pt reports she has been having this pain and pressure off and on for months. pt reports she had an exploratory surgery with dr crystal x2 weeks ago. pt states she has not had her follow up from surgery yet. History of Present Illness HPI narrative: This is a 36-year-old female with history of chronic pelvic pain who is presenting with acute on chronic pelvic pain. Patient states that she has had pelvic pain for a few months. It has been getting progressively worsening, so she followed up with gynecology who did diagnostic laparoscopy recently. Patient was told that she has a cyst, but does not know follow-up results of that. She was supposed to follow-up with gynecology 1 day prior to arrival, however she was unable to make the appointment. Patient states that today, she had an acute onset, 9 out of 10, stabbing/cramping pain in her lower pelvis that radiates to her back feels like a band around my pelvis. Denies fevers, chills, nausea, vomiting, dysuria, hematuria, vaginal discharge or bleeding, painful intercourse, diarrhea, constipation. It is made better by laying on her side, made worse by sitting up. She has not tried any other interventions. Related Data Home Medications Medication Instructions Recorded Confirmed fluticasone propionate 50 1 spray intranasal NEEDED PRN 11/09/20 04/27/22 mcg/actuation nasal allergies spray,suspension valacyclovir 1 gram tablet 1 g PO NEEDED PRN HERPES 11/09/20 04/27/22 cholecalciferol (vitamin D3) 25 25 mcg PO DAILY Supplement 04/25/22 04/27/22 mcg (1,000 unit) capsule cyanocobalamin (vitamin B-12) 500 1,000 mcg PO DAILY Supplement 04/25/22 04/27/22 mcg tablet (Vitamin B-12) famotidine 20 mg tablet 20 mg PO DAILY Reflux/Acid reflux 04/25/22 04/27/22 diclofenac sodium 75 mg 75 mg PO BID Pain 04/27/22 04/27/22 tablet,delayed release Previous Rx's Medication Instructions Recorded oxycodone 5 mg tablet 5 mg PO Q6H PRN pain #15 tabs 04/27/22 Allergies Allergy/AdvReac Type Severity Reaction Status Date / Time hydrocodone [From [facility]CO] AdvReac Unknown NAUSEA/VOMI Verified 04/27/22 06:15 [facility] Medical History Allergies Anxiety Depression History of COVID-19 History of gastroesophageal reflux (GERD) PTSD (post-traumatic stress disorder) Tonsillectomy planned
--- NOTE | 2022-05-12 09:44 | PC.NURSE ---
Iv established and blood sent to the lab
--- NOTE | 2022-05-12 09:48 | PC.NURSE ---
pt medicated per SEP. lights dimmed for comfort while pt awaits for CT
[2022-05-12 09:52] LABS: Basophils # 0.1 K/mm3 (0-0.2); Basophils % 1.3 % (0.1-2.0); Eosinophils # 0.2 K/mm3 (0.0-0.4); Eosinophils % 1.8 % (0.1-12.0); Hematocrit 41.7 % (37.0-47.0); Lymphocytes % 27.6 % (10-50); Mean Corpuscular HGB Conc 33.6 g/dL (31.8-35.4); Mean Corpuscular Hemoglobin 30.1 pg (27.0-31.2); Mean Corpuscular Volume 89.5 fl (81-99); Mean Platelet Volume 8.3 fl (7.4-10.4); Monocytes # 0.6 K/mm3 (0.1-1.0); Monocytes % 5.1 % (1.7-9.3); Neutrophils % 64.1 % (37.0-80.0); Platelet Count 378 K/mm3 (142-424); Red Blood Count 4.66 M/mm3 (4.20-5.40); Red Cell Distribution Width 13.1 % (11.5-17.5)
[2022-05-12 09:58] LABS: Chloride 104 mmol/L (98-107); Sodium 139 mmol/L (136-145)
[2022-05-12 09:59] LABS: Potassium 4.2 mmoL/L (3.5-5.1)
[2022-05-12 10:01] LABS: Alanine Aminotransferase 52 U/L (12-78); Alkaline Phosphatase 89 U/L (38-126); Anion Gap 13.2 mEq/L (5-15); Aspartate Amino Transferase 47 U/L (14-36); Bilirubin,Total < 0.1 mg/dl (0.2-1.3); Blood Urea Nitrogen 15 mg/dl (7-17); Calcium 8.4 mg/dl (8.4-10.2); Carbon Dioxide 26 mmol/L (22.0-30.0); Creatinine Clearance Estimated 159 mL/min (50-200); Estimated Glomerular Filt Rate 95 ml/min (>60); GFR (African American) 115 ML/MIN (>60); Glucose 102 mg/dl (74-100); Lactic Acid 0.9 mmol/L (0.7-2.1); Lipase 22 U/L (23-300)
[2022-05-12 10:02] LABS: Albumin Level 3.9 g/dl (3.5-5.0); Albumin/Globulin Ratio 1.3 (1.1-1.8); Globulin 2.9 g/dL (1.3-3.2); Total Protein,Serum 6.8 g/dl (6.3-8.2)
--- NOTE | 2022-05-12 10:25 | PC.NURSE ---
rad notified of CT order
--- NOTE | 2022-05-12 10:30 | PC.NURSE ---
pt to CT
[2022-05-12 10:45] LABS: HCG,Quantitative < 2 mIU/ml (0-5.42)
--- NOTE | 2022-05-12 10:47 | PC.NURSE ---
pt back from radiology
== END 2022-05-12 12:59 | disposition home or self-care (01) ==
PROVIDERS: Emergency Provider Emergency Medicine; PCP Internal Medicine Adolescent Medicine
DX: N83.202 Unspecified ovarian cyst, left side (principal); Z79.899 Other long term (current) drug therapy; Z88.6 Allergy status to analgesic agent; F41.9 Anxiety disorder, unspecified; F32.A Depression, unspecified; F43.10 Post-traumatic stress disorder, unspecified
CPT/HCPCS: 74177; 80053; 81001; 83605; 83690; 84702; 85025; 96374; 99284; Q9967

== ENCOUNTER → 2022-06-20 12:49 | Outpatient (CLI) | payer OTHER, SELFPAY ==
--- NOTE | 2022-06-20 12:54 | XR_ITS ---
FINAL REPORT CLINICAL HISTORY: PELVIC PERINEAL PAIN, no recent injury FINDINGS: LUMBAR SPINE Five views demonstrate no acute fracture. The disc spaces are well preserved. There is no malalignment. IMPRESSION: No acute process. Reviewed, Interpreted and Dictated by Kristi Diego MD Transcribed by Mary Sosa Authenticated and [facility]
[2022-06-20 13:43] LABS: Basophils # 0.1 K/mm3 (0-0.2); Basophils % 1.1 % (0.1-2.0); Eosinophils # 0.2 K/mm3 (0.0-0.4); Eosinophils % 1.7 % (0.1-12.0); Hematocrit 46.9 % (37.0-47.0); Hemoglobin 15.1 g/dL (12.2-16.2); Lymphocytes # 3.2 K/mm3 (0.7-4.5); Lymphocytes % 28.3 % (10-50); Mean Corpuscular HGB Conc 32.1 g/dL (31.8-35.4); Mean Corpuscular Hemoglobin 29.6 pg (27.0-31.2); Mean Corpuscular Volume 92.2 fl (81-99); Mean Platelet Volume 8.2 fl (7.4-10.4); Monocytes # 0.6 K/mm3 (0.1-1.0); Monocytes % 5.6 % (1.7-9.3); Neutrophils % 63.3 % (37.0-80.0); Platelet Count 453 K/mm3 (142-424); Red Blood Count 5.09 M/mm3 (4.20-5.40); White Blood Count 11.1 K/mm3 (4.8-10.8)
[2022-06-20 14:17] LABS: Hemoglobin A1C 5.7 % (4.0-6.0)
[2022-06-20 14:19] LABS: Erythrocyte Sedimentation Rate 12 mm/hr (0-20)
[2022-06-20 14:44] LABS: Alanine Aminotransferase 50 U/L (12-78); Albumin Level 4.3 g/dl (3.5-5.0); Albumin/Globulin Ratio 1.5 (1.1-1.8); Alkaline Phosphatase 107 U/L (38-126); Anion Gap 15.5 mEq/L (5-15); Aspartate Amino Transferase 50 U/L (14-36); Bilirubin,Total 0.3 mg/dl (0.2-1.3); Blood Urea Nitrogen 13 mg/dl (7-17); Calcium 9.7 mg/dl (8.4-10.2); Carbon Dioxide 28 mmol/L (22.0-30.0); Chloride 99 mmol/L (98-107); Chol/HDL Ratio 5.5 (1-3.5); Cholesterol 181 mg/dl (140-200); Estimated Glomerular Filt Rate 81 ml/min (>60); GFR (African American) 98 ML/MIN (>60); Globulin 2.8 g/dL (1.3-3.2); Glucose 91 mg/dl (74-100); HDL Cholesterol 33 mg/dl (40-60); Potassium 4.5 mmoL/L (3.5-5.1); Sodium 138 mmol/L (136-145); Total Protein,Serum 7.1 g/dl (6.3-8.2); Triglycerides 154 mg/dl (30-150); VLDL Cholesterol 31 mg/dL (0-40)
[2022-06-20 14:56] LABS: Direct LDL Cholesterol 116.21 mg/dL (100-129)
[2022-06-20 15:00] LABS: 25-OH Vitamin D, Total 27.6 ng/mL (30-100)
[2022-06-20 15:15] LABS: Thyroid Stimulating Hormone 2.08 uIU/mL (0.465-4.68)
[2022-06-20 15:34] LABS: Vitamin B12 990 pg/mL (239-931)
== END ==
PROVIDERS: PCP Internal Medicine Adolescent Medicine; Visit Provider Nurse Practitioner Family
DX: R10.2 Pelvic and perineal pain (principal); G89.29 Other chronic pain; H02.60 Xanthelasma of unspecified eye, unspecified eyelid; E55.9 Vitamin D deficiency, unspecified
CPT/HCPCS: 36415; 72110; 80053; 80061; 82306; 82607; 83036; 84443; 85025; 85651

== ENCOUNTER → 2022-11-29 07:00 | Outpatient (CLI) | payer OTHER, SELFPAY ==
--- NOTE | 2022-11-29 07:08 | US_ITS ---
FINAL REPORT TECHNIQUE: Multiple transverse and longitudinal images CLINICAL HISTORY: ELEVATED LIVER ENZYMES FINDINGS: The gallbladder shows no wall thickening, distention or stone disease. No biliary ductal dilatation is appreciated. No fluid collections are seen. There is fatty infiltration of the liver. Limited portions of the right kidney are unremarkable. IMPRESSION: 1. Fatty liver. 2. No evidence of biliary obstruction. Reviewed, Interpreted and Dictated by Kristi Diego MD Transcribed by Mary Sosa Authenticated and [facility]
== END ==
PROVIDERS: PCP Internal Medicine Adolescent Medicine; Visit Provider Nurse Practitioner Family
DX: R74.8 Abnormal levels of other serum enzymes (principal)
CPT/HCPCS: 76705

== ENCOUNTER → 2022-12-25 10:54 | Outpatient (CLI) | payer OTHER, SELFPAY ==
--- NOTE | 2022-12-25 10:55 | MR_ITS ---
FINAL REPORT TECHNIQUE: Multiplanar and multisequence imaging of the lumbar spine was obtained without contrast. CLINICAL HISTORY: Lumbosacral radiculopathy. PELVIC PAIN WITH LEFT LEG PAIN. NO INJURY OR TRAUMA FINDINGS: There is normal alignment of the lumbar vertebral bodies. Vertebral body height is preserved. The spinal cord ends at the level of L1. There is normal signal intensity within the substance of the distal spinal cord. No acute bone marrow edema or pathologic marrow replacement. No acute paraspinal abnormality is identified. L1-2: There is no focal disc herniation, central canal stenosis or neuroforaminal narrowing. L2-3: There is no focal disc herniation, central canal stenosis or neuroforaminal narrowing. L3-4: There is mild facet osteoarthropathy without focal disc herniation, central canal stenosis or neuroforaminal narrowing. L4-5: Mild annular disc bulge with facet osteoarthropathy. There is no significant central canal stenosis. There is mild inferior foraminal narrowing. L5-S1: Annular disc bulge with facet osteoarthropathy and mild inferior neural foraminal narrowing. IMPRESSION: Multilevel degenerative disc disease most pronounced at L4-5 and L5-S1. Reviewed, Interpreted and Dictated by Caty Canada MD Transcribed by Paola Gross Authenticated and [facility]
== END ==
PROVIDERS: PCP Internal Medicine Adolescent Medicine; Visit Provider Specialist
DX: M54.17 Radiculopathy, lumbosacral region (principal); G57.82 Other specified mononeuropathies of left lower limb
CPT/HCPCS: 72148; 76376

== ENCOUNTER → 2023-02-08 16:12 | Outpatient (POV) | payer OTHER, SELFPAY | PROVIDERS: Visit Provider Specialist/Technologist | DX: Z00.00 Encounter for general adult medical examination without abnormal findings (principal) ==

== ENCOUNTER → 2023-03-12 10:10 | Outpatient (POV) | payer OTHER, SELFPAY ==
--- NOTE | 2023-03-12 10:28 | EXP.PAIN.OV ---
HPI Data of Consult Patient: new to practice Consult date: 03/12/23 Requesting Physician: Jennyfer Hernandez APRN Primary Care Provider: George Ibrahim MD Consult Narrative Reason for consult: Pelvic pain, low back pain, left leg pain History of present illness: Ms. Rowland is a 37 year old female who presents today as a new patient. She is a referral from Dr. Ma's office. Today she rates her pain a 10 out of 10. Patient states her pain is all in her pelvic area with radiating symptoms into her low back and left leg. Patient states this has been going on for approximately a year and a half and unrelated to any specific trauma or injury. She does describe the pain as an aching, stabbing, sharp shooting pains down her left leg. Patient does state that the pain can be random that is worse with increased activity or on the other hand be worse after having a bowel movement. Patient does state that ice has made it worse and that typically in these episodes she has to curl up in a position and apply a heating pad. Patient denies any previous injection history. Patient states she has not had physical therapy however she does do at home exercise and stretching on a daily basis for more than 12 weeks with no additional relief. Patient has had a recent MRI imaging. Patient has tried [id number] medications such as Tylenol and ibuprofen along with heat and ice and topicals with minimal relief. Patient does state the pain interferes with her ability perform activities of daily living such as cooking or cleaning. Patient is interested in any help that we may be able to provide. She states that she has had exploratory surgery with no acute findings which led to the neurologist appointment. She states that they did think that she possibly had a pinched nerve. She is not on any scheduled medications. Her Live is [phone]. Its been reviewed and appropriate. CC: Jennyfer Hernandez APRN [facility] Disclaimer: The information contained in this section may have been updated after the patient was seen, as this information can be updated by other users. Medical History (Updated 03/12/23 @ 10:31 by Jennyfer Hernandez APRN) Allergies Anxiety Conductive hearing loss in right ear Depression History of COVID-19 History of gastroesophageal reflux (GERD) PTSD (post-traumatic stress disorder) Right serous otitis media Tonsillectomy planned Surgical History H/O LEEP History of section History of endometrial ablation Hx of dilation and curettage Hx of tubal ligation Family History Father Family hx-stroke Mother Family hx-stroke Diabetes Asthma COPD (chronic obstructive pulmonary disease) Anxiety Depression Social History Smoking Status: Current every day smoker tobacco type: cigarettes packs per day: 1 years smoked: 16 second hand exposure: Yes alcohol intake: current substance use type: marijuana current occupational status: employed Travel in the last 8 weeks: None household members: children housing: house Review of Systems Review of Systems Review of systems:: pertinent systems reviewed and negative unless documented below Review of systems (narrative): Review of Systems: General: No recent weight changes, no fever, no sleep disturbances Respiratory: No cough, no shortness of air, no recurring pulmonary infections Cardiovascular/peripheral vascular: No chest pain, no palpitations, no edema, no shortness of breath Gastrointestinal: No new onset incontinence, normal bowel movements reported Genitourinary: No new onset incontinence Musculoskeletal: Low back pain, left leg pain, pelvic pain Psychiatric: [Normal mood/affect] Neurological: [Denies weakness in extremities], [denies balance issues] Meds Home Medications and Allergies Home M
[2023-03-12 10:46] VITALS: BP 107/73; PULSE 74; RESP 18; O2SAT 97; BMI 38.0
== END ==
PROVIDERS: PCP Internal Medicine Adolescent Medicine; Visit Provider Nurse Practitioner Family
DX: M51.16 Intervertebral disc disorders with radiculopathy, lumbar region (principal); R10.2 Pelvic and perineal pain
CPT/HCPCS: 99202; G0463

== ENCOUNTER → 2023-03-12 11:19 | Outpatient (CLI) | payer OTHER, SELFPAY ==
[2023-03-12 11:54] LABS: MANUAL DIFFERENTIAL MANUAL DIFFERENTIAL (MANUAL DIFF)
[2023-03-12 12:07] LABS: Urine Pregnancy, HCG Qual. Negative (Negative)
[2023-03-12 12:32] LABS: Basophils # 0.1 K/mm3 (0-0.2); Basophils % 0.9 % (0.1-2.0); Eosinophils # 0.2 K/mm3 (0.0-0.4); Eosinophils % 1.5 % (0.1-12.0); Hematocrit 45.3 % (37.0-47.0); Hemoglobin 15.4 g/dL (12.2-16.2); Lymphocytes # 3.8 K/mm3 (0.7-4.5); Mean Corpuscular HGB Conc 34.1 g/dL (31.8-35.4); Mean Corpuscular Hemoglobin 30.3 pg (27.0-31.2); Mean Corpuscular Volume 88.8 fl (81-99); Mean Platelet Volume 8.4 fl (7.4-10.4); Monocytes # 0.7 K/mm3 (0.1-1.0); Monocytes % 6.6 % (1.7-9.3); Neutrophils % 55.9 % (37.0-80.0); Platelet Count 434 K/mm3 (142-424); Red Blood Count 5.09 M/mm3 (4.20-5.40); Red Cell Distribution Width 12.3 % (11.5-17.5); White Blood Count 10.8 K/mm3 (4.8-10.8)
[2023-03-12 12:59] LABS: Lymphocytes % 40 % (10-50); Monocytes % 6 % (2-9); Neutrophils % 54 % (42-76); Platelet Estimate Normal; RBC Morphology Normal; Total Cells Counted 100
[2023-03-12 14:20] LABS: Alanine Aminotransferase 85 U/L (12-78); Albumin Level 4.3 g/dl (3.5-5.0); Albumin/Globulin Ratio 1.4 (1.1-1.8); Alkaline Phosphatase 88 U/L (38-126); Anion Gap 14.7 mEq/L (5-15); Aspartate Amino Transferase 50 U/L (14-36); Blood Urea Nitrogen 14 mg/dl (7-17); Calcium 9.2 mg/dl (8.4-10.2); Carbon Dioxide 22 mmol/L (22.0-30.0); Chloride 112 mmol/L (98-107); Estimated Glomerular Filt Rate 81 ml/min (>60); GFR (African American) 98 ML/MIN (>60); Globulin 3.1 g/dL (1.3-3.2); Glucose 89 mg/dl (74-100); Potassium 4.7 mmoL/L (3.5-5.1); Sodium 144 mmol/L (136-145); Total Protein,Serum 7.4 g/dl (6.3-8.2)
[2023-03-12 14:33] LABS: Bilirubin,Total 0.1 mg/dl (0.2-1.3)
== END ==
PROVIDERS: PCP Internal Medicine Adolescent Medicine; Visit Provider Nurse Practitioner
DX: Z01.812 Encounter for preprocedural laboratory examination (principal); H65.04 Acute serous otitis media, recurrent, right ear; H90.11 Conductive hearing loss, unilateral, right ear, with unrestricted hearing on the contralateral side
CPT/HCPCS: 36415; 80053; 81025; 85007; 85014; 85018; 85048; 85049

== ENCOUNTER 2023-03-19 08:28 | Day surgery (SDC) | payer OTHER, SELFPAY ==
[2023-03-12 11:49] VITALS: BMI 37.1
[2023-03-19 09:50] VITALS: BP 116/76; PULSE 61; RESP 18; TEMP 36.2; O2SAT 97
--- NOTE | 2023-03-19 10:03 | EXP.ANES.CKL ---
[facility] Disclaimer: The information contained in this section may have been updated after the patient was seen, as this information can be updated by other users. Medical History Allergies Anxiety Arthritis Conductive hearing loss in right ear DDD (degenerative disc disease) Depression History of COVID-19 History of gastroesophageal reflux (GERD) PTSD (post-traumatic stress disorder) Right serous otitis media Sexual behavior with high risk of exposure to communicable disease Tonsillectomy planned Surgical History H/O LEEP History of section History of endometrial ablation Hx of dilation and curettage Hx of tubal ligation Family History Father Family hx-stroke Mother Family hx-stroke Diabetes Asthma COPD (chronic obstructive pulmonary disease) Anxiety Depression Social History Smoking Status: Current every day smoker tobacco type: cigarettes packs per day: 1 years smoked: 16 second hand exposure: Yes alcohol intake: never substance use type: denies use current occupational status: employed Travel in the last 8 weeks: None household members: children housing: house [facility] Anesthesia Checklist Patient Identification Patient Identification: Arm Band and Verbal (Name & ) Structural Data Admitted From: Home Planned Operative Procedure/s: Rt ear tube Consent for Planned Operative Procedure(s) Verified: Yes Verified Documents: Surgical Consent NPO Status Verified Time NPO: 00:00 Additional verifications Anesthesia Reactions: No Hx Blood Transfusions: No Blood Transfusion Reaction: No Airway Assessment Mallampati Score:: Class II C-Spine Mobility Assessed: Yes TMJ Mobility Assessed: Yes Dentition: Good Dentition Neurological Assessment Level of Consciousness: Awake and Alert Hx Seizures: No Anesthesia Plan Anesthesia Risk discussed: Yes ASA Class: II Anesthesia Type: IV sedation
--- NOTE | 2023-03-19 11:09 | EXP.OP.NOTE ---
Date of procedure: 03/19/23 Pre-op Diagnosis:: 1. Right chronic serous otitis media 2. Eustachian tube dysfunction Post-op Diagnosis:: Same Procedure performed:: Right myringotomy with tube placement (Paparella 2000) Surgeon:: Regino Winslow III, MD NATIONAL ACCOUNT DIRECTOR:: Other Anesthesia: MAC Estimated blood loss (mL): 0 Operative findings:: Retracted tympanic membrane Operative note:: The patient was brought to the operating room and placed under general inhalational anesthetic with IV sedation. The left external auditory canal was inspected with the microscope and noted to be clear. The tympanic membrane appeared normal with only slight retraction superiorly. The right side was then inspected. There is a small foreign body (hair) that was removed from the tympanic membrane. I made an incision anteroinferiorly in the tympanic membrane. The middle ear space was noted to be clear of any fluid at this time. A Paparella 2000 tube was placed through the incision followed by antibiotic drops. Patient was awakened in the operating room taken recovery in good condition. Condition: stable Disposition: PACU Complications:: None
[2023-03-19 11:21] VITALS: BP 110/65; PULSE 69; RESP 18; O2SAT 96
[2023-03-19 11:26] VITALS: BP 107/64; PULSE 58; RESP 18; O2SAT 96
[2023-03-19 11:36] VITALS: BP 113/70; PULSE 56; RESP 18; O2SAT 97
[2023-03-19 11:46] VITALS: BP 106/73; PULSE 50; RESP 17; O2SAT 97
== END 2023-03-19 11:50 | disposition home or self-care (01) ==
PROVIDERS: PCP Internal Medicine Adolescent Medicine; Visit Provider Otolaryngology
PROC: (CPT 69436; principal; 2023-03-19 10:30)
DX: H65.21 Chronic serous otitis media, right ear (principal); H69.90 Unspecified Eustachian tube disorder, unspecified ear
CPT/HCPCS: 69436; J2405

== ENCOUNTER 2023-03-27 12:01 | Day surgery (SDC) | payer OTHER, SELFPAY ==
[2023-03-27 12:10] VITALS: BP 132/76; PULSE 83; RESP 18; O2SAT 97; BMI 37.8
--- NOTE | 2023-03-27 12:17 | P.PCN_ITS ---
Procedure Date: 03/27/23 Time: 12:20 Anesthesiologist:: Napoleon De La Cruz CRNA Complications:: None Pre-procedure Diagnosis:: Degenerative disc lumbar spine multiple levels. Lumbar radiculopathy. Post-procedure Diagnosis:: Same. Indications for Procedure:: Patient is a pleasant 37-year-old female that comes our clinic today with left low lumbar back pain, left buttock pain. Left sided pelvic pain. Left leg radicular symptoms in the anterior thigh. Patient describes the pain as constant, dull, aching, intermittent. Today she rates her pain 2/10. However, she also reports sometimes it is 10/10. Patient not able to recall what makes pain increase and/or decrease. Simply, it is intermittent. Procedure Details:: Details of the procedure were explained to the patient. The patient was taken the procedure room placed in the prone position. The area of the lumbar spine was cleansed using chlorhexidine as a cleansing solution. At this time using fluoroscopy guidance markers were placed on the left lateral border of the L4 and L5 vertebral body. The skin and subcutaneous tissue was anesthetized using 1% lidocaine and 25-gauge needle. At this time using a 22-gauge 3-1/2 inch spinal needle the left upper one third of the L4-5 foramen was accessed. The same was done at the left L5-S1 foramen. Needle positions were confirmed and a lateral view using fluoroscopy and contrast dye. At this time 1 cc of 1% lidocaine +20 mg of Depo-Medrol was injected at each level after negative aspiration. [place] were removed. Band-Aid applied. Patient tolerated the procedure without difficulty. There are no complications. Plan and Disposition:: Patient was discharged without incident.
[2023-03-27 12:18] VITALS: BP 122/76; PULSE 89; RESP 18; O2SAT 98
[2023-03-27 12:20] VITALS: BP 122/76; PULSE 86; RESP 18; O2SAT 98
[2023-03-27 12:27] VITALS: BP 109/68; PULSE 72; RESP 20; O2SAT 97
== END 2023-03-27 12:28 | disposition home or self-care (01) ==
PROVIDERS: PCP Internal Medicine Adolescent Medicine; Visit Provider Nurse Anesthetist, Certified Registered
DX: M51.16 Intervertebral disc disorders with radiculopathy, lumbar region (principal)
CPT/HCPCS: 64483; 64484; J1030

== ENCOUNTER 2023-04-07 13:30 | Emergency (ER) | payer OTHER, SELFPAY ==
[2023-04-07] VITALS (7 sets, daily range): BP systolic 94–131; BP diastolic 64–87; PULSE 60–88; RESP 16–17; TEMP 36.9–37.1; O2SAT 96–98; BMI 37.1
--- NOTE | 2023-04-07 13:56 | PC.NURSE ---
DR VILLAGOMEZ AT BEDSIDE
--- NOTE | 2023-04-07 14:04 | CT_ITS ---
PROCEDURE INFORMATION: Exam: CT Neck With Contrast Exam date and time: 04/07/2023 2:31 PM Age: 37 years old Clinical indication: Mass, lump, or swelling in neck; Right; Additional info: Unilateral R sided neck swelling TECHNIQUE: Imaging protocol: Computed tomography of the neck with contrast. Radiation optimization: All CT scans at this facility use at least one of these dose optimization techniques: automated exposure control; mA and/or kV adjustment per patient size (includes targeted exams where dose is matched to clinical indication); or iterative reconstruction. Contrast material: ISOVUE; Contrast volume: 75 ml; Contrast route: IV; REPORTING DATA: Count of CT and Cardiac NM exams in prior 12 months: This patient has received [address] and 0 known cardiac nuclear medicine studies in the 12 months prior to the current study. COMPARISON: BRAINWW MR head/brain wo/w con 08/16/2017 1:46 PM FINDINGS: Pharynx: Unremarkable. No significant tonsillar enlargement. Larynx: Unremarkable. Epiglottis is normal. Prevertebral and retropharyngeal spaces: Unremarkable. Salivary glands: Unremarkable Thyroid: Normal. There are at least 2 peripherally calcified left thyroid nodes measuring up to 0.9 cm. Lymph nodes: Borderline prominent, around the right submandibular gland lymph nodes likely reactive. Trachea: Visualized trachea is unremarkable. Lungs: Unremarkable as visualized. Bones/joints: Unremarkable. No acute fracture. Soft tissues: Unremarkable. No significant soft tissue swelling. IMPRESSION: 1. There are at least 2 peripherally calcified left thyroid nodes measuring up to 0.9 cm. 2. Borderline prominent, around the right submandibular gland lymph nodes likely reactive. No discrete collection
--- NOTE | 2023-04-07 14:06 | HMH.EDGENADL ---
Discharge Plan Disposition Patient Disposition: Home, Self-Care Condition: Good Prescriptions Prescriptions: New amoxicillin 500 mg capsule 500 mg PO Q12H Qty: 20 0RF No Action Allergy Relief (cetirizine) 10 mg capsule 10 mg PO DAILY PRN (Reason: ALLERGIES) omeprazole 40 mg capsule,delayed release(DR/EC) 40 mg PO DAILY Patient Comments: TAKE 1 CAPSULE BY MOUTH EVERY DAY cholecalciferol (vitamin D3) 125 mcg (5,000 unit) capsule 125 mcg PO DAILY montelukast 10 mg tablet 10 mg PO DAILY fluticasone propionate 50 mcg/actuation spray,suspension 1 spray INTRANASAL NEEDED PRN (Reason: allergies) Patient Comments: SHAKE LIQUID AND USE 2 SPRAYS IN EACH NOSTRIL EVERY DAY diclofenac sodium 75 mg tablet,delayed release (DR/EC) 75 mg PO ONCE ondansetron [ondansetron] 4 mg tablet,disintegrating 4 mg PO Q6H PRN (Reason: nausea and vomiting) Qty: 10 0RF Referrals Follow up/Referrals: George Ibrahim MD [Primary Care Provider] - See instructions Clinical Impressions Clinical Impression: Acute pharyngitis Qualifiers: Pharyngitis/tonsillitis etiology: unspecified etiology Qualified Code(s): J02.9 - Acute pharyngitis, unspecified Stand Alone Forms Stand Alone Forms: Work/School Release Discharge ED Provider: Dimitry Salinas Adult HPI General Chief complaint: PAIN Stated complaint: Rt ear pain, sore throat, Rt side neck pain Time Seen by Provider: 04/07/23 13:53 Mode of Arrival: Ambulatory Source of Information: Patient Limitations: No Limitations Description of Symptoms (Recalled from ER Triage Doc. by RN): c/o right ear pain and swelling that goes into her right neck and throat making it painful to swallow. PT states that 1.5-2 weeks ago she had a tube placed in her right ear due to it being clogged for 4 months. Swelling started on 04/05/23. History of Present Illness HPI narrative: Patient presents for evaluation of right-sided neck pain and right ear pain gradual in onset for the past 1 to 2 weeks after tympanostomy tube placement, no associated fevers however describes sore throat with no globus sensation, has been able to tolerate liquids however pain is sharp and limits p.o. intake. No previous therapies. Patient does note recent negative rapid strep swab. No discharge from ear, no overt mastoid tenderness, does report tenderness in the distribution of sternocleidomastoid muscle. No pain elsewhere. No shortness of breath, no nausea or vomiting. No known sick contacts. Related Data Home Medications Medication Instructions Recorded Confirmed fluticasone propionate 50 1 spray intranasal NEEDED PRN 11/09/20 03/27/23 mcg/actuation nasal allergies spray,suspension cetirizine 10 mg capsule (Allergy 10 mg PO DAILY PRN ALLERGIES 12/04/22 03/27/23 Relief (cetirizine)) cholecalciferol (vitamin D3) 125 125 mcg PO DAILY SUPPLIMENT 12/04/22 03/27/23 mcg (5,000 unit) capsule diclofenac sodium 75 mg 75 mg PO ONCE Pain 12/04/22 03/27/23 tablet,delayed release omeprazole 40 mg capsule,delayed 40 mg PO DAILY STOMACH 12/04/22 03/27/23 release montelukast 10 mg tablet 10 mg PO DAILY ALLERGIES 01/29/23 03/27/23 Previous Rx's Medication Instructions Recorded ondansetron 4 mg disintegrating 4 mg PO Q6H PRN nausea and 03/19/23 tablet vomiting #10 tabs amoxicillin 500 mg capsule 500 mg PO Q12H #20 caps 04/07/23 Allergies Allergy/AdvReac Type Severity Reaction Status Date / Time hydrocodone [From [facility]] AdvReac Unknown NAUSEA/VOMI Verified 03/27/23 12:11 [facility] Disclaimer: The information contained in this section may have been updated after the patient was seen, as this information can be updated by other users. Medical History (Updated 04/07/23 @ 15:47 by Dimitry Salinas MD) Allergies Anxiety Arthritis Conductive hearing loss in right ear DDD (degenerative disc disease) Depression History of COVID-19 History
--- NOTE | 2023-04-07 14:10 | PC.NURSE ---
PT MEDICATED PER WINIFRED SILVERMAN PROVIDED. AT BEDSIDE
[2023-04-07 14:25] LABS: Coronavirus 19, PCR Not Detected (NotDetected); Influenza A, PCR Not Detected (NotDetected); Influenza B, PCR Not Detected (NotDetected)
[2023-04-07 14:31] LABS: Alanine Aminotransferase 71 U/L (12-78); Albumin Level 4.2 g/dl (3.5-5.0); Albumin/Globulin Ratio 1.2 (1.1-1.8); Alkaline Phosphatase 110 U/L (38-126); Anion Gap 13.3 mEq/L (5-15); Aspartate Amino Transferase 50 U/L (14-36); Bilirubin,Total 0.4 mg/dl (0.2-1.3); Blood Urea Nitrogen 11 mg/dl (7-17); Calcium 8.9 mg/dl (8.4-10.2); Carbon Dioxide 26 mmol/L (22.0-30.0); Chloride 106 mmol/L (98-107); Creatinine Clearance Estimated 159 mL/min (50-200); Estimated Glomerular Filt Rate 81 ml/min (>60); GFR (African American) 98 ML/MIN (>60); Globulin 3.6 g/dL (1.3-3.2); Glucose 94 mg/dl (74-100); Potassium 4.3 mmoL/L (3.5-5.1); Sodium 141 mmol/L (136-145); Total Protein,Serum 7.8 g/dl (6.3-8.2)
--- NOTE | 2023-04-07 14:31 | PC.NURSE ---
PT TO CT
[2023-04-07 14:32] LABS: Basophils # 0.1 K/mm3 (0-0.2); Basophils % 0.5 % (0.1-2.0); Eosinophils # 0.2 K/mm3 (0.0-0.4); Hematocrit 47.2 % (37.0-47.0); Hemoglobin 15.3 g/dL (12.2-16.2); Lymphocytes % 18.6 % (10-50); Mean Corpuscular HGB Conc 32.4 g/dL (31.8-35.4); Mean Corpuscular Hemoglobin 29.5 pg (27.0-31.2); Mean Corpuscular Volume 91.1 fl (81-99); Monocytes % 6.5 % (1.7-9.3); Neutrophils # 11.9 K/mm3 (1.8-7.8); Neutrophils % 73.3 % (37.0-80.0); Platelet Count 370 K/mm3 (142-424); Red Blood Count 5.19 M/mm3 (4.20-5.40); White Blood Count 16.2 K/mm3 (4.8-10.8)
[2023-04-07 14:37] LABS: MANUAL DIFFERENTIAL MANUAL DIFFERENTIAL (MANUAL DIFF)
--- NOTE | 2023-04-07 14:38 | PC.NURSE ---
PT RETURNED FROM CT
[2023-04-07 14:39] LABS: Strep Scrn Group A (Rapid) Negative (Negative)
[2023-04-07 15:40] LABS: Lymphocytes % 24 % (10-50); Monocytes % 3 % (2-9); Neutrophils % 73 % (42-76); Platelet Estimate Normal; RBC Morphology Normal; Total Cells Counted 100
--- NOTE | 2023-04-07 15:41 | PC.NURSE ---
DR VILLAGOMEZ AT BEDSIDE TO REEVALUATE PT AND UPDATE PT
== END 2023-04-07 16:00 | disposition home or self-care (01) ==
PROVIDERS: Emergency Provider Emergency Medicine; PCP Internal Medicine Adolescent Medicine
DX: J02.9 Acute pharyngitis, unspecified (principal); M54.2 Cervicalgia; H92.01 Otalgia, right ear
CPT/HCPCS: 70491; 80053; 85007; 85025; 87430; 87636; 96374; 96375; 99285; Q9967

== ENCOUNTER → 2023-05-09 15:15 | Outpatient (POV) | payer OTHER, SELFPAY ==
--- NOTE | 2023-05-09 15:46 | EXP.PAIN.SOA ---
[facility] Pain Management SOAP Note Subjective:: Patient is a pleasant 37-year-old female who presents today for follow-up. We are currently treating the patient for degenerative disc disease of lumbar spine with lumbar radiculopathy symptoms, pelvic pain, left leg pain. Today she rates her pain a 7 out of 10. Patient denies any new trauma or injury. Patient did previously have a left transforaminal epidural steroid injection L4-L5 and L5-S1 back in the beginning of March that did provide 100% relief lasting approximately 7 weeks. Patient does state during that time she had no pain but only some pressure sensations. She states she was able to increase her activity with decreased pain and felt overall more functional. Today she states that the pain has just now gotten back to its baseline and she is interested in repeating this injection. Patient does state the pain interferes with her ability perform activities of daily living. Patient has previously been to a neurosurgeon who was not recommending surgery for her pinched nerve and was recommending conservative treatment such as injections. Patient's Live has been reviewed and is appropriate. Review of Systems: General: No recent weight changes, no fever, no sleep disturbances Respiratory: No cough, no shortness of air, no recurring pulmonary infections Cardiovascular/peripheral vascular: No chest pain, no palpitations, no edema, no shortness of breath Gastrointestinal: No new onset incontinence, normal bowel movements reported Genitourinary: No new onset incontinence Musculoskeletal: Low back pain, left leg pain, left-sided pelvic pain Psychiatric: [Normal mood/affect] Neurological: [Denies weakness in extremities], [denies balance issues] Objective:: Physical Exam: General: Alert and oriented x3, no acute distress, pleasant and cooperative Lungs: Respirations even and unlabored, symmetrical chest expansion Eyes: PERRL Musculoskeletal: Flexion and extension of lumbar [spine] somewhat guarded secondary to pain, [antalgic gait noted] positive left leg raise with decreased sensation and decreased reflexes along the left leg Neurological: Speech clear, no gross sensory deficit Assessment:: Degenerative disc disease of lumbar spine with lumbar radiculopathy symptoms, left leg pain, pelvic pain Plan:: Patient is back to her baseline today with worsening pain in her low back that radiates down her left leg to her left foot. Patient does experience numbness and tingling and did have a positive left leg raise with decreased sensation to light touch and decreased reflexes along the left leg during today's exam. I have discussed with the patient that she may benefit repeating her previous transforaminal epidural. Patient did previously have 100% improvement lasting approximately 7 weeks. Risk and benefits of this injection were explained to the patient and she would like to proceed forward with this plan of care. We will schedule the patient for a left transforaminal epidural steroid injection L4-L5 and L5-S1. Patient has been instructed to contact the clinic with any concerns before the next appointment. Dr. Hong has reviewed this note and agrees with this plan of care. This note was dictated using voice recognition software and make contain errors or omissions. [facility] Disclaimer: The information contained in this section may have been updated after the patient was seen, as this information can be updated by other users. Medical History (Updated 04/16/23 @ 16:20 by Lucia Garcia APRN) Allergies Anxiety Arthritis Conductive hearing loss in right ear DDD (degenerative disc disease) Depression History of COVID-19 History of gastroesophageal reflux (GERD) PTSD (post-traumatic stress disorder) Retained myringotomy tube in right ear Right serous otitis media Sexual behavior with high risk of exposure to communicable disease Tonsillectomy planned Surgical History (Updated 04/16/23 @ 16:20 by Nick
[2023-05-09 16:05] VITALS: BP 134/81; PULSE 82; RESP 18; O2SAT 98; BMI 35.8
== END ==
PROVIDERS: PCP Internal Medicine Adolescent Medicine; Visit Provider Nurse Practitioner Family
DX: M51.16 Intervertebral disc disorders with radiculopathy, lumbar region (principal); M79.605 Pain in left leg; R10.2 Pelvic and perineal pain
CPT/HCPCS: 99212; G0463

== ENCOUNTER → 2023-05-10 15:36 | Outpatient (CLI) | payer OTHER, SELFPAY ==
[2023-05-12 08:15] LABS: HBsAg Screen Negative (Negative); HCV Ab Non Reactive (Non Reactive); Hep A Ab, IGM Negative (Negative); Hep B Core Ab, IgM Negative (Negative)
[2023-05-12 09:13] LABS: HIV Screen 4th Generation wRfx Non Reactive (Non Reactive); Rapid Plasma Reagin Ab Titer Non Reactive titer (NonRea<1:1)
== END ==
PROVIDERS: PCP Internal Medicine Adolescent Medicine; Visit Provider Obstetrics & Gynecology
DX: Z20.9 Contact with and (suspected) exposure to unspecified communicable disease (principal); Z72.51 High risk heterosexual behavior
CPT/HCPCS: 36415; 80074; 86593; 86703; G0432

== ENCOUNTER 2023-05-22 08:06 | Day surgery (SDC) | payer OTHER, SELFPAY ==
[2023-05-22 08:21] VITALS: BP 131/76; PULSE 77; RESP 18; TEMP 36.8; O2SAT 100; BMI 34.5
[2023-05-22 08:35] VITALS: BP 135/81; PULSE 66; RESP 18; O2SAT 96
[2023-05-22 08:36] VITALS: BP 135/81; PULSE 75; RESP 18; O2SAT 96
[2023-05-22 08:42] VITALS: BP 123/86; PULSE 71; RESP 18; O2SAT 100
--- NOTE | 2023-05-22 08:43 | P.PCN_ITS ---
Procedure Date: 05/22/23 Time: 08:30 Anesthesiologist:: Napoleon De La Cruz CRNA Complications:: None Pre-procedure Diagnosis:: Degenerative disc lumbar spine multilevels. Lumbar radiculopathy. Lumbar disc bulge L4-5, L5-S1. Post-procedure Diagnosis:: Same. Indications for Procedure:: Patient is a very pleasant 37-year-old female comes our clinic today for repeat L4-5, L5-S1 left transforaminal epidural steroid injection. Patient reports 6- 1/2 weeks of significant improvement terms of her overall left low lumbar pain as well as left hip and leg radicular symptoms to the foot. She rates her pain today 7/10. Procedure Details:: Details of the procedure were explained to the patient. The patient was taken the procedure room placed in the prone position. The area of the lumbar spine was cleansed using chlorhexidine as a cleansing solution. At this time using fluoroscopy guidance markers were placed on the left lateral border of the L4 and L5 vertebral body. The skin and subcutaneous tissue was anesthetized using 1% lidocaine and 25-gauge needle. At this time using a 22-gauge 3-1/2 inch spinal needle the left upper one third of the L4-5 foramen was accessed. The same was done at the left L5-S1 foramen. Needle positions were confirmed and a lateral view using fluoroscopy and contrast dye. At this time 1 cc of 1% lidocaine +20 mg of Depo-Medrol was injected at each level after negative aspiration. [place] were removed. Band-Aid applied. Patient tolerated the procedure without difficulty. There are no complications. Plan and Disposition:: Patient was discharged without incident.
== END 2023-05-22 08:42 | disposition home or self-care (01) ==
PROVIDERS: PCP Internal Medicine Adolescent Medicine; Visit Provider Nurse Anesthetist, Certified Registered
DX: M51.16 Intervertebral disc disorders with radiculopathy, lumbar region (principal); M51.26 Other intervertebral disc displacement, lumbar region
CPT/HCPCS: 64483; 64484; J1030

== ENCOUNTER → 2023-06-11 10:37 | Outpatient (CLI) | payer OTHER, SELFPAY ==
--- NOTE | 2023-06-11 10:39 | US_ITS ---
FINAL REPORT CLINICAL HISTORY: .nodules seen on ct COMPARISON: None FINDINGS: THYROID ULTRASOUND: The right lobe of the thyroid gland measures 4.4 x 1 x 1.5 cm in size. There are 2 small hypoechoic nodules in the right lobe of the thyroid, the first of which measures 3 x 3 x 2 mm in size, is solid, hypoechoic, a TI-RADS category 4 nodule. The second measures 4 x 2 x 2 mm in size, solid, hypoechoic, with punctate echogenic foci, a TI-RADS category 5 nodule. The left lobe of the thyroid gland measures 4.95 x 2.6 x 2.2 cm in size. There are 2 nodules in the left thyroid gland, the first of which measures 13 x 11 x 11 mm in size, is solid, isoechoic, and has peripheral calcifications. This is a TI-RADS category 4 nodule. A second larger nodule measures 27 x 18 x 21 mm in size, is isoechoic, with punctate echogenic foci, a TI-RADS category 4 nodule. This second nodule according to TI-RADS criteria should undergo ultrasound-guided biopsy. The isthmus is normal in appearance and measures 3.5 mm in size. IMPRESSION: Multiple nodules present in the thyroid gland, the largest of which measures 27 x 18 x 21 mm in size, is a TI-RADS category 4 nodule, with punctate echogenic foci, and would recommend ultrasound guided biopsy of this nodule. The other nodules do not require biopsy at this time, although 1 year follow-up is suggested. Reviewed, Interpreted and Dictated by Von Angel III, MD Transcribed by Jeannine Jacobo Authenticated and . [facility]
--- NOTE | 2023-06-11 10:40 | US_ITS ---
FINAL REPORT CLINICAL HISTORY: LYMPHADENOPATHY, THYROID NODULE COMPARISON: CT of the neck soft tissues 04/07/2023 FINDINGS: CT SOFT TISSUES NECK: Ultrasound examination of the soft tissues of the neck reveals several enlarged submandibular gland region nodes, bilaterally, the largest on the right side measuring 2.6 cm in diameter. The largest node on the left side measures 2.3 cm in diameter. These likely represent reactive or neoplastic adenopathy. Direct comparison to CT is difficult but generally the size of the nodes does not appear to be significantly changed since the prior CT of 04/07/2023. IMPRESSION: Multiple wounds in the cervical soft tissues, particularly in the region of the submandibular glands bilaterally. The largest measures 2.6 cm in diameter. These are nonspecific and may be reactive or neoplastic, and if clinically indicated repeat CT might be helpful for further evaluation. Reviewed, Interpreted and Dictated by Von Angel III, MD Transcribed by Jeannine Jacobo Authenticated and [facility]
== END ==
PROVIDERS: PCP Internal Medicine Adolescent Medicine; Visit Provider Nurse Practitioner Family
DX: E04.1 Nontoxic single thyroid nodule (principal); R59.1 Generalized enlarged lymph nodes
CPT/HCPCS: 76536

== ENCOUNTER → 2023-06-11 11:19 | Outpatient (POV) | payer OTHER, SELFPAY ==
--- NOTE | 2023-06-11 11:24 | EXP.PAIN.SOA ---
[facility] Pain Management SOAP Note Subjective:: Patient is a pleasant 37-year-old female who presents today for follow-up of left transforaminal epidural steroid injection L4-L5 and L5-S1 on 05/22/2023. We are currently treating the patient for degenerative disc disease of lumbar spine with lumbar radiculopathy symptoms, pelvic pain, left leg pain. Today she rates her pain a 4 out of 10. Patient denies any new trauma or injury. She does state that she had approximately 80% relief lasting 2 weeks. Patient does state however that her pelvic pain started to come back and today she states she is basically back to her baseline. Patient continues to have low back pain with left leg symptoms and pelvic pain. She does state that she has been to a RECREATION TEACHER who did say that her uterus and bladder were dropping and could explain the increased pelvic pain. Patient does state that she is scheduled to get fitted for a pessary device on June 26. Patient was also told that they may look at tacking her uterus up before proceeding forward with any additional surgery intervention. Patient is not on any scheduled medications. Patient's Live has been reviewed and is appropriate. Review of Systems: General: No recent weight changes, no fever, no sleep disturbances Respiratory: No cough, no shortness of air, no recurring pulmonary infections Cardiovascular/peripheral vascular: No chest pain, no palpitations, no edema, no shortness of breath Gastrointestinal: No new onset incontinence, normal bowel movements reported Genitourinary: No new onset incontinence Musculoskeletal: Low back pain, left leg pain Psychiatric: [Normal mood/affect] Neurological: [Denies weakness in extremities], [denies balance issues] Objective:: Physical Exam: General: Alert and oriented x3, no acute distress, pleasant and cooperative Lungs: Respirations even and unlabored, symmetrical chest expansion Eyes: PERRL Musculoskeletal: Flexion and extension of lumbar [spine] somewhat guarded secondary to pain, [antalgic gait noted] Neurological: Speech clear, no gross sensory deficit Assessment:: degenerative disc disease of lumbar spine with lumbar radiculopathy symptoms, pelvic pain, left leg pain Plan:: I will order the patient a compounded cream and today's visit. I have discussed with the patient that we can look at doing repeat injections however we will wait until after she has her pessary device placed. Patient will return to clinic in 1 month for reevaluation of symptoms and plan of care. Patient has been instructed to contact the clinic with any concerns before the next appointment. Dr. Hong has reviewed this note and agrees with this plan of care. This note was dictated using voice recognition software and make contain errors or omissions. [facility] Disclaimer: The information contained in this section may have been updated after the patient was seen, as this information can be updated by other users. Medical History Allergies Anxiety Arthritis Conductive hearing loss in right ear DDD (degenerative disc disease) Depression History of COVID-19 History of gastroesophageal reflux (GERD) PTSD (post-traumatic stress disorder) Retained myringotomy tube in right ear Right serous otitis media Sexual behavior with high risk of exposure to communicable disease Tonsillectomy planned Surgical History H/O LEEP x3 History of section x 1 History of endometrial ablation Hx of dilation and curettage x3 Hx of tubal ligation Family History Father Family hx-stroke Mother Family hx-stroke Diabetes Asthma COPD (chronic obstructive pulmonary disease) Anxiety Depression Social History Smoking Status: Current every day smoker
[2023-06-11 11:37] VITALS: BP 119/86; PULSE 72; RESP 18; O2SAT 99; BMI 34.5
== END ==
PROVIDERS: PCP Internal Medicine Adolescent Medicine; Visit Provider Nurse Practitioner Family
DX: M51.16 Intervertebral disc disorders with radiculopathy, lumbar region (principal); R10.2 Pelvic and perineal pain; M79.605 Pain in left leg
CPT/HCPCS: 99212; G0463

== ENCOUNTER → 2023-07-02 07:44 | Outpatient (CLI) | payer OTHER, SELFPAY ==
--- NOTE | 2023-07-02 07:49 | US_ITS ---
FINAL REPORT CLINICAL HISTORY: THYROID NODULE FINDINGS: ULTRASOUND GUIDED LEFT THYROID BIOPSY HISTORY: Left thyroid nodule. ATTENDING PHYSICIAN: Dr. Paxton MD PHYSICIAN ATHLETE MARKETING AGENT: Margarita Barton PA-C PROCEDURE: Informed consent was obtained from the patient. A time out procedure was performed. Ultrasound was utilized to localize the dominant left thyroid nodule. Patient was prepped and draped in the usual sterile fashion over the left neck. 1% Lidocaine was utilized for local anesthesia. Four 25-gauge FNA passes were made of the left thyroid nodule using ultrasound guidance. Tissue samples were placed in Cytolyt and sent to the lab for analysis. Patient tolerated the procedure well and left the department in good condition. IMPRESSION: Technically successful ultrasound-guided FNA of a dominant left thyroid nodule, as described. Reviewed, Interpreted and Dictated by James Matta MD Transcribed by Margarita Barton PA-C Authenticated and [facility]
== END ==
PROVIDERS: PCP Internal Medicine Adolescent Medicine; Visit Provider Nurse Practitioner Family
DX: E04.1 Nontoxic single thyroid nodule (principal)
CPT/HCPCS: 60100; 76536; 76942

== ENCOUNTER 2023-11-19 08:00 | Outpatient (CLI) | payer OTHER, SELFPAY ==
--- NOTE | 2023-11-19 08:04 | US_ITS ---
FINAL REPORT CLINICAL HISTORY: lt thyroid biopsy, adolfo HEBERT FINDINGS: Ultrasound guided thyroid biopsy. HISTORY: Thyroid mass. Attending radiologist: Dr. Diego Physician Tax Services Manager: Adolfo Breaux PA-C PROCEDURE: After informed consent was obtained and a time-out was performed, the patient was prepped and draped in usual sterile fashion over the left neck. Utilizing local anesthesia and sterile technique with a 25-gauge needle, access to lesion was oobtained. A total of 4 passes were made under direct ultrasound guidance. The patient received no conscious sedation. The patient tolerated procedure well and left the department in good condition. IMPRESSION: Status post ultrasound guided biopsy of thyroid without immediate complication. Films reviewed , interpreted and dictated by Dr. Diego. Transcribed by Adolfo Breaux PA-C. Reviewed, Interpreted and Dictated by Kristi Diego MD Transcribed by ANUP Monterroso Authenticated and [facility]
== END 2023-11-19 23:59 | disposition home or self-care (01) ==
LOC: RAD 08:01
PROVIDERS: PCP Internal Medicine Adolescent Medicine; Visit Provider Nurse Practitioner
DX: E04.1 Nontoxic single thyroid nodule (principal)
CPT/HCPCS: 10005; 76536

== ENCOUNTER 2023-12-26 11:14 | Outpatient (CLI) | payer OTHER, SELFPAY ==
[2023-12-28 10:33] LABS: HIV Screen 4th Generation wRfx Non Reactive (Non Reactive)
[2023-12-28 12:04] LABS: Rapid Plasma Reagin Ab Titer Non Reactive titer (NonRea<1:1)
[2023-12-28 12:12] LABS: HCV Ab Non Reactive (Non Reactive); Hepatitis B Surface Antigen Negative (Negative)
== END 2023-12-26 23:59 | disposition home or self-care (01) ==
LOC: LAB.DROPOF 12-27 11:15
PROVIDERS: PCP Obstetrics & Gynecology; Visit Provider Obstetrics & Gynecology
DX: Z11.3 Encounter for screening for infections with a predominantly sexual mode of transmission (principal)
CPT/HCPCS: 86593; 86703; 87340; G0432

== ENCOUNTER 2023-12-28 09:42 | Outpatient (CLI) | payer OTHER, SELFPAY | END 2023-12-28 23:59 | disposition home or self-care (01) | LOC: LAB.DROPOF 12-31 09:43 | PROVIDERS: PCP Nurse Practitioner Family; Visit Provider Nurse Practitioner Family | DX: R30.0 Dysuria (principal) | CPT/HCPCS: 87086 ==

== ENCOUNTER 2024-01-03 21:01 | Outpatient (CLI) | payer OTHER, SELFPAY ==
[2024-01-03 21:24] LABS: Basophils # 0.2 K/mm3 (0-0.2); Basophils % 1.2 % (0.1-2.0); Eosinophils # 0.2 K/mm3 (0.0-0.4); Eosinophils % 1.2 % (0.1-12.0); Hematocrit 42.1 % (37.0-47.0); Hemoglobin 14.3 g/dL (12.2-16.2); Lymphocytes # 3.4 K/mm3 (0.7-4.5); Lymphocytes % 26.6 % (10-50); Mean Corpuscular Hemoglobin 32.1 pg (27.0-31.2); Mean Corpuscular Volume 94.3 fl (81-99); Mean Platelet Volume 10.2 fl (7.4-10.4); Monocytes # 0.9 K/mm3 (0.1-1.0); Monocytes % 7.2 % (1.7-9.3); Neutrophils # 8.2 K/mm3 (1.8-7.8); Neutrophils % 63.9 % (37.0-80.0); Platelet Count 352 K/mm3 (142-424); Red Blood Count 4.47 M/mm3 (4.20-5.40); Red Cell Distribution Width 13.5 % (11.5-17.5); White Blood Count 12.8 K/mm3 (4.8-10.8)
[2024-01-03 21:34] LABS: Chloride 106 mmol/L (98-107); Sodium 136 mmol/L (136-145)
[2024-01-03 21:35] LABS: Potassium 4.2 mmoL/L (3.5-5.1)
[2024-01-03 21:37] LABS: Blood Urea Nitrogen 12 mg/dl (7-17); Estimated Glomerular Filt Rate 94 ml/min (>60); GFR (African American) 113 ML/MIN (>60)
[2024-01-03 21:38] LABS: Anion Gap 10.2 mEq/L (5-15); Calcium 8.9 mg/dl (8.4-10.2); Carbon Dioxide 24 mmol/L (22.0-30.0); Glucose 97 mg/dl (74-100)
== END 2024-01-03 23:59 | disposition home or self-care (01) ==
LOC: LAB.DROPOF 21:04
PROVIDERS: PCP Student in an Organized Health Care Education/Training Program; Visit Provider Student in an Organized Health Care Education/Training Program
DX: E04.1 Nontoxic single thyroid nodule (principal)
CPT/HCPCS: 80048; 85025

== ENCOUNTER 2024-01-09 15:18 | Observation (INO) | payer OTHER, SELFPAY ==
[2024-01-08 09:02] VITALS: BMI 35.9
[2024-01-08 09:27] VITALS: BMI 35.9
[2024-01-09] VITALS (25 sets, daily range): BP systolic 108–142; BP diastolic 55–91; PULSE 80–115; RESP 14–18; TEMP 36.2–38; O2SAT 91–100; BMI 35.5
[2024-01-09 10:04] LABS: Urine Pregnancy, HCG Qual. Negative (Negative)
[2024-01-09] MEDS: LIDOCAINE 1% W/EPI 1:100,000 20ML VIAL 20 ML (11:41)
[2024-01-09] MEDS: CEFAZOLIN SODIUM 2 GM in 0.9 % SODIUM CHLORIDE 100 ML IV (11:43)
--- NOTE | 2024-01-09 13:42 | P.OP_ITS ---
Date of procedure: 01/09/24 Pre-op Diagnosis:: suspicious left thyroid nodule Post-op Diagnosis:: same Procedure performed:: left hemithyroidectomy Surgeon:: Sb Mcgee MD Anesthesia: GETA Estimated blood loss (mL): 25 Operative findings:: 2x very firm thyroid nodules, one of which was very vascular and densely adhered to central neck tissue\ no obvious central neck masses otherwise Operative note:: The patient was brought to the OR, laid in the supine position, and general anesthesia with a Nims nerve monitoring endotracheal tube was induced.? Nerve monitor was set up and confirmed to be working appropriately.? Patient was prepped and draped in usual fashion.? Lidocaine with epinephrine 1-100,000 was injected below the transverse neck incision site.? I dissected through the skin, subcutaneous tissues, and platysma.? The strap muscles were identified at the midline raphae.? The strap muscles were divided at the raphae.? I then began to dissect the strap muscles off of the left side of the thyroid.?The patient had two very firm nodules in the left thyroid lobe, one more superior, and one more posterior lateral. I isolated the superior pedicle and was taken down with a harmonic.?? We then came inferior again freeing thyroid from the surrounding tissue.? I then began to roll the thyroid in a lateral to medial fashion out of the patient's neck. The inferior/lateral nodule was very densely adhered to the central neck tissue. ?I was able to identify her recurrant laryngeal nerve after meticulous dissection - it was quite small and adhered to the thyroid lobe, requiring a fair amount of dissection to free if from the mass/thyroid, though I ultimately was able to achieve this as the mass itself did not appear to be invading the nerve. I dissected through Mart's ligament and dissected the lobe off the trachea. The thyroid was divided at the midline isthmus and then sent for permanent pathology.? Patient's neck was then thoroughly irrigated out.? Hemostasis was achieved with bipolar cautery.? The recurrent laryngeal nerve stimulated both proximally and distally at the end of the case at 1.5 mAMP.? 15 Kiswahili drain was fashioned in the patient's neck.? The incision was then closed in 2 layers.? They were then turned back over to anesthesia to be awoken and extubated. Condition: stable Disposition: PACU Complications:: none
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
--- NOTE | 2024-01-09 13:49 | P.PNANES_ITS ---
[facility] Anesthesia Record Part I Anesthesia Record I Intake, IV Amount: 1,600 Hydration: Adequate Estimated blood loss (mL): 25 Urine output (mL): 0 Blood Products used (#): none Blood Pressure: 111/72 SaO2: 96 Pulse Rate: 110 Airway Patency: Patent Respiratory Rate: 16 Temperature: 98.2 F Patient is:: Drowsy and Stable Stable to PACU at:: 13:40
[2024-01-09] MEDS: HYDROMORPHONE 2MG/ML SYRINGE 0.5 MG IV ×2 (14:31→14:35)
[2024-01-09] MEDS: OXYCODONE 5MG W/APAP 325MG TABLET 1 EACH PO ×3 (14:40→22:24)
--- NOTE | 2024-01-09 14:47 | SUR.PHASEII ---
rt aware of ekg ordered due to pt having shooting pain down her L arm.
--- NOTE | 2024-01-09 14:50 | SUR.PHASEII ---
rt at bedside performing ekg
--- NOTE | 2024-01-09 14:53 | ECG_ITS ---
APPROVED REPORT Exam: Resting ECG HR:109 bpm ECG Measurements Heart Rate 109 AXES AZ 164 P 62 QRSd 90 QRS 21 QT 357 T 18 QTc 421 Conclusion SINUS TACHYCARDIA ABNORMAL RHYTHM ECG UNCONFIRMED REPORT Electronically signed by : George Ibrahim MD 01/11/2024 10:29:13
--- NOTE | 2024-01-09 15:08 | SUR.PHASEII ---
notified md that patient's pain isn't any better.
--- NOTE | 2024-01-09 15:11 | SUR.PHASEII ---
dr Mcgee would like to admit pt for pain control. retail warehouse supervisor aware.
--- NOTE | 2024-01-09 15:13 | SUR.PHASEII ---
dr hoffman aware of admission.
--- NOTE | 2024-01-09 15:19 | SUR.PHASEII ---
pt is going to room 200 per perennial house manager.
--- NOTE | 2024-01-09 15:29 | P.HP_ITS ---
History of Present Illness *Admission Date: 01/09/24 *Reason for visit:: Intractable neck pain, postop *History of present illness: Ms. Rowland is a 38-year-old female with recent diagnosis of thyroid nodules. Nodules with concerning pathology suspicious for follicular lesion of undetermined significance with atypical genetics. She was brought in electively for partial thyroid resection today with Dr. Mcgee. Procedure performed with no significant complication. Had significant adhesion however and required extensive dissection. Postop, patient had significant pain that was unable to be controlled. Medicine was contacted for admission to address intractable neck pain. On arrival to the floor, patient still having significant pain even after multiple doses of hydromorphone. Denies any chest pain, nausea, vomiting. Does feel dizzy and have a headache at this time. On room air. Complaining of pain under her chin as well as upper chest. Had some radiation down her arm, EKG obtained showing no ischemic changes. [facility] Disclaimer: The information contained in this section may have been updated after the patient was seen, as this information can be updated by other users. Medical History Routine screening for STI (sexually transmitted infection) Thyroid nodule Generalized anxiety disorder with panic attacks MDD (major depressive disorder), recurrent episode, moderate Chronic post-traumatic stress disorder (PTSD) Arthritis DDD (degenerative disc disease) Sexual behavior with high risk of exposure to communicable disease Conductive hearing loss in right ear Depression Anxiety History of gastroesophageal reflux (GERD) Allergies Surgical History Status post myringotomy with insertion of tube History of section Hx of dilation and curettage Hx of tubal ligation H/O LEEP History of endometrial ablation Family History Father Family hx-stroke Mother Family hx-stroke Diabetes Asthma COPD (chronic obstructive pulmonary disease) Anxiety Depression Social History Smoking Status: Current every day smoker tobacco type: cigarettes packs per day: 1 years smoked: 16 second hand exposure: Yes alcohol intake: never substance use type: denies use and marijuana (Faye will smoke marijuana once in a blue brito, about once every few months, or the Delta 8 gummies approximately 1/4 of a gummy 3 times per week if needed to help sleep.) current occupational status: employed Travel in the last 8 weeks: None household members: children housing: house number of children: 3 Review of Systems Review of Systems Review of systems (narrative): 14 point review of systems performed, pertinent positives and negatives as per HPI Meds Home Medications and Allergies Home Medications Medication Instructions Recorded Confirmed Type fluticasone propionate 50 1 spray intranasal DAILYP PRN 11/09/20 01/09/24 History mcg/actuation nasal Allergy Symptoms spray,suspension cholecalciferol (vitamin D3) 125 125 mcg PO DAILY SUPPLIMENT 12/04/22 01/09/24 History mcg (5,000 unit) capsule omeprazole 40 mg capsule,delayed 40 mg PO DAILY 12/04/22 01/09/24 History release montelukast 10 mg tablet 10 mg PO DAILY 01/29/23 01/09/24 History vitamin E (dl, acetate) 45 mg (100 45 mg PO DAILY 05/10/23 01/09/24 History unit) capsule diazepam 10 mg vaginal DAILY pelvic floor 12/14/23 01/09/24 Rx therapy #30 supp phentermine 37.5 mg tablet 37.5 mg PO DAILY 12/19/23 01/09/24 History (Adipex-P) cetirizine 10 mg tablet (Zyrtec) 10 mg PO BID 12/26/23 01/09/24 History cyanocobalamin (vitamin B-12) 1,000 mcg PO DAILY 12/26/23 01/09/24 History 1,000 mcg capsule hydroxyzine HCl 25 mg tablet 25 mg PO TID 12/26/23 01/09/24 History ondansetron HCl 4 mg tablet 4 mg PO TIDP PRN Nausea #10 tabs 01/09/24 Rx oxycodone-acetaminophen 5 mg-325 1 tab PO Q6H PRN pain 7 days #20 01/09/24 Rx mg tablet tabs New Prescriptions to Start Prescriptions: ondansetron HCl Sb Mcgee oxycodone-acetaminophen Sb Mcgee Allergies Allergy/AdvReac Type Severity Reaction Status Date / Time hydrocodone [From NORCO] AdvReac Unknown NAUSEA/VOMI Verified 01/09/24 10:04 TING Exam Data for Last 24 hours Vital signs and Labs for Last 24 Hours: Temp Pulse Resp BP Pulse Ox O2 Del Method O2 Flow Rate 97.7 F 102 H 16 142/91 H 93 L Room Air 2 01/09/24 14:15 01/09/24 15:15 01/09/24 15:15 01/09/24 15:15 01/09/24 15:15 01/09/24 15:15 01/09/24 14:11 Laboratory Results - last 24 hr 01/09/24 09:50: Urine HCG, Qual Negative I & O for Last 24 hours: Intake & Output 01/06/24 01/07/24 01/08/24 01/09/24 23:59 23:59 23:59 23:59 Intake Total 1600 / 1600 Balance 1600 / 1600 Weight 101.151 kg 99.79 kg Constitutional Constitutional: mild distress, obese and cooperative *Routine HEENT Exam Head: Present normocephalic Eye: Present EOMI and PERRL ENT: Present mucous membranes moist *Routine Neck Exam Neck: Present lymphadenopathy Comments: Postsurgical scar anterior neck, clean dry and intact. XENIA drain with bloody drainage exiting lower neck. Tender to palpation throughout anterior neck and upper chest *Routine Respiratory Exam Respiratory: Present CTA bilaterally; Absent rhonchi, wheezes or crackles *Routine Cardiovascular Exam Cardiovascular: Present RRR *Routine Abdominal Exam Abdominal: Present soft and normoactive bowel sounds; Absent tenderness *Routine Rectal Exam Rectal:: deferred *Routine Genitalia Exam Genitalia:: deferred *Routine Extremities Exam Extremities: Absent cyanosis, clubbing or edema *Routine Skin Exam Skin: Present warm; Absent rash *Routine Neurological Exam Neurological: Present alert, oriented X3 and moving all extremities; Absent altered mental status Assessment and Plan *Assessment and plan (1) Intractable pain: Status: Acute Category: Medical Code(s): R52 - Pain, unspecified (2) Status post partial thyroidectomy: Status: Acute Category: Surgical Code(s): E89.0 - Postprocedural hypothyroidism (3) Thyroid nodule: Status: Acute Category: Medical Code(s): E04.1 - Nontoxic single thyroid nodule (4) MDD (major depressive disorder), recurrent episode, moderate: Problem Comment: Faye reports having anxiety and depression since a young child. Status: Chronic Category: Medical Code(s): F33.1 - Major depressive disorder, recurrent, moderate (5) Class II obesity: Status: Chronic Category: Medical Code(s): E66.9 - Obesity, unspecified Plan 38-year-old female with recent diagnosis of thyroid abnormality necessitating resection. Status post partial thyroidectomy today. Has postop intractable pain. Discussed case with ENT physician, request admission for pain control and monitoring overnight. I agreed to admit for further management. Hemodynamically stable. Initiated on aggressive regimen with Dilaudid, ibuprofen, Tylenol, and lidocaine patch. Will monitor overnight and try to capture patient's pain. Problems addressed as follows: Intractable neck pain -Continue Dilaudid 2 mg IV every 2 hours for severe breakthrough, monitor for toxicity -Oxycodone 5 mg every 4 hours for moderate to severe pain. -Ibuprofen 600 mg as needed every 6 hours along with Tylenol 650 mg as needed every 6 hours -Lidocaine patch topically on upper chest. Partial thyroidectomy -See op note for full details. Significant adhesions requiring dissection -Plan for removal of XENIA drain in the morning -Pathology pending, further management per ENT I have ordered CBC, CMP, magnesium. Morning. Full code Holding DVT prophylaxis postop due to risk of bleeding Regular diet
--- NOTE | 2024-01-09 15:32 | P.CONPHA_ITS ---
Pharmacy Intervention Comments: MEDICATION RECONCILIATION COMPLETED ON PATIENT USING EXTERNAL FILL HISTORY FROM PHARMACY AND [facility] REPORT. -AZUCENA LEON, TRINHD
--- NOTE | 2024-01-09 15:32 | HMH.PHAINT1 ---
Pharmacy Intervention Comments: MEDICATION RECONCILIATION COMPLETED ON PATIENT USING EXTERNAL FILL HISTORY FROM PHARMACY AND [facility] REPORT. -AZUCENA LEON, TRINHD
--- NOTE | 2024-01-09 15:34 | PC.NURSE ---
arrived by stretcher from surgery
[2024-01-09] MEDS: IBUPROFEN 600 MG TABLET PO (15:54)
[2024-01-09] MEDS: ACETAMINOPHEN 325MG TAB 650 MG PO (15:54)
[2024-01-09] MEDS: HYDROMORPHONE 2MG/ML SYRINGE 2 MG IV (15:55)
[2024-01-09] MEDS: PROMETHAZINE HCL 25MG/ML 1ML VIAL 25 MG IV ×2 (16:15→22:23)
[2024-01-09] MEDS: NICOTINE 21MG/24HR PATCH 21 MG TD (16:56)
[2024-01-09] MEDS: LIDOCAINE 5% TRANSDERMAL PATCH 1 EACH TP (17:59)
--- NOTE | 2024-01-09 19:43 | PC.NURSE ---
Attempted to notify DEYSI PIERSON at this time (no answer). of Pt c/o ENAMORADO, SOB, and states that she thinks shes having palpations. Pt placed on telemetry, lungs sounds clear and slightly diminished at bases and HR slightly tachy at 108. No resp distress noted at this time, pt presents somewhat anxious. Pt has had all ordered medications allowed at this time.
[2024-01-09] MEDS: SODIUM CHLORIDE 0.9% 25ML BAG 25 ML IV (22:24)
[2024-01-09] MEDS: HYDROXYZINE HCL 25 MG 25 EACH PO (23:12)
[2024-01-10] VITALS: BP 127/73; PULSE 70; PULSE 90; RESP 18; TEMP 36.7; O2SAT 100
--- NOTE | 2024-01-10 00:03 | EXP.PN ---
Subjective *Date: 01/09/24 *Time: 18:00 Interval history: patient reassessed on floor around 1800 had intractable pain in PACU so descision made to admit for pain control improved after a couple courses of diluadid head pain drastically improved from PACU (had been c/o pain over left eye) EKG negative Exam Data for Last 24 hours Vital signs and Labs for Last 24 Hours: Temp Pulse Resp BP Pulse Ox O2 Del Method O2 Flow Rate 98.3 F 102 H 16 110/76 99 Room Air 1 01/09/24 22:25 01/09/24 22:25 01/09/24 22:25 01/09/24 22:25 01/09/24 22:25 01/09/24 23:00 01/09/24 17:00 Laboratory Results - last 24 hr 01/09/24 09:50: Urine HCG, Qual Negative I & O for Last 24 hours: Intake & Output 01/07/24 01/08/24 01/09/24 01/10/24 23:59 23:59 23:59 23:59 Intake Total 1822 / 1822 Output Total 1000 / 1000 Balance 822 / 822 Weight 101.151 kg 99.79 kg Detailed ENT Exam Comments: NAD neck soft but TTP no inc WOB no stridor no evidence of any hematoma drain in place with approx 10 cc of dark red output (has not been emptied since surgery per staff) Assessment and Plan *Assessment and plan (1) Status post partial thyroidectomy: Status: Acute Category: Surgical Code(s): E89.0 - Postprocedural hypothyroidism Plan Hospitalist admission following left hemithyroidectomy for pain control likely remove drain tomorrow ok to advance diet as tolerated oob/a but no lifting more than 5-10 lb
[2024-01-10 04:00] VITALS: BP 106/62; PULSE 65; PULSE 70; RESP 16; TEMP 36.8; O2SAT 100; BMI 35.4
--- NOTE | 2024-01-10 04:21 | PC.NURSE ---
Pt is alert and oriented x4 and currently tolerating 1L of O2 well. Pt has c/o pain and has been treated per mar. Pt has also c/o SOB at times, 1 L of O2 via NC for comfort applied. Pt has rested well intermittently this shift. No other acute changes noted this shift. at bedside.
--- NOTE | 2024-01-10 06:33 | PC.NURSE ---
emptied 20 cc of dark red liquid for pt XENIA drain
[2024-01-10] MEDS: OXYCODONE 5MG W/APAP 325MG TABLET 1 EACH PO (07:07)
--- NOTE | 2024-01-10 07:30 | EXP.DC.SUM ---
General Admission date:: 01/09/24 Discharge date: 01/10/24 HPI HPI HPI: Ms. Rowland is a 38-year-old female with recent diagnosis of thyroid nodules. Nodules with concerning pathology suspicious for follicular lesion of undetermined significance with atypical genetics. She was brought in electively for partial thyroid resection today with Dr. Mcgee. Procedure performed with no significant complication. Had significant adhesion however and required extensive dissection. Postop, patient had significant pain that was unable to be controlled. Medicine was contacted for admission to address intractable neck pain. On arrival to the floor, patient still having significant pain even after multiple doses of hydromorphone. Denies any chest pain, nausea, vomiting. Does feel dizzy and have a headache at this time. On room air. Complaining of pain under her chin as well as upper chest. Had some radiation down her arm, EKG obtained showing no ischemic changes. Hospital Course Hospital Course Hospital Course: 38-year-old female with recent diagnosis of thyroid abnormality necessitating resection. Status post partial thyroidectomy today. Has postop intractable pain. Discussed case with ENT physician, request admission for pain control and monitoring overnight. I agreed to admit for further management. Hemodynamically stable. Initiated on aggressive regimen with Dilaudid, ibuprofen, Tylenol, and lidocaine patch. Admitted for monitoring overnight. Responded well to aggressive pain regimen. Pain was captured after 2 mg dose of Dilaudid. Tolerating oral pain regimen at this time. ENT remove drain on morning of discharge. Stable to discharge home with continued oral analgesic therapy. Follow-up with ENT as scheduled. Problems addressed as follows: Intractable neck pain -Significant pain postop. Not responding to 2.5 mg doses of Dilaudid. Patient tearful and anxious. Admitted for pain control. Treated with 1 dose of IV Dilaudid 2 mg with good response. Received 3-4 doses oral oxycodone overnight. Also treated with ibuprofen and Tylenol. Lidocaine patch applied to help with local pain. Some improvement by morning and meeting criteria for discharge home to continue outpatient therapy. -Pain medication sent by surgeon after surgery. Recommended patient pick up worker [id number] lidocaine patch to use topically daily. Partial thyroidectomy -See op note for full details. Significant adhesions requiring dissection. Patient tolerated procedure well. XENIA drain in place until morning. ENT OFFICE CLERK remove drain without difficulty. Patient had minimal output in XENIA. Clinically stable to discharge home with close follow-up to monitor surgical wound in the coming week. Pathology pending with further management per ENT. Exam Data for Last 24 hours Vital signs and Labs for Last 24 Hours: Temp Pulse Resp BP Pulse Ox O2 Del Method O2 Flow Rate 98.2 F 65 16 106/62 L 100 Room Air 1 01/10/24 04:00 01/10/24 04:00 01/10/24 04:00 01/10/24 04:00 01/10/24 04:00 01/10/24 06:38 01/10/24 05:00 Laboratory Results - last 24 hr 01/09/24 09:50: Urine HCG, Qual Negative I & O for Last 24 hours: Intake & Output 01/07/24 01/08/24 01/09/24 01/10/24 23:59 23:59 23:59 23:59 Intake Total 1822 / 1822 Output Total 1000 / 1000 Balance 822 / 822 - / 20 Weight 101.151 kg 99.79 kg 99.926 kg Constitutional Constitutional: no acute distress, obese and cooperative *Routine HEENT Exam Head: Present normocephalic Eye: Present EOMI and PERRL ENT: Present mucous membranes moist *Routine Neck Exam Neck: Present supple; Absent lymphadenopathy Comments: Scar left anterior neck from recent surgery. Tender to palpation along anterior neck and upper chest. No active bleeding. *Routine Respiratory Exam Respiratory: Present CTA bilaterally; Absent rhonchi, wheezes or crackles *Routine Cardiovascular Exam Cardiovascular: Present RRR *Routine Abdominal Exam Abdominal: Present soft and normoactive bowel sounds; Absent tenderness *Routine Rectal Exam Patient deferred: visual exam *Routine Exam Patient deferred: external exam *Routine Extremities Exam Extremities: Absent cyanosis, clubbing or edema *Routine Skin Exam Skin: Present intact and warm; Absent rash *Routine Neurological Exam Neurological: Present alert, oriented X3 and moving all extremities; Absent altered mental status Results Data Completed and Pending Labs on day of discharge: Labs from last 24 hours 01/09/24 09:50 Urine HCG, Qual Negative DS: Diagnosis Discharge Diagnosis (1) Status post partial thyroidectomy: Status: Acute Code(s): E89.0 - Postprocedural hypothyroidism Meds Home Medications and Allergies Home Medications Medication Instructions Recorded Confirmed Type fluticasone propionate 50 1 spray intranasal DAILYP PRN 11/09/20 01/09/24 History mcg/actuation nasal Allergy Symptoms spray,suspension cholecalciferol (vitamin D3) 125 125 mcg PO DAILY SUPPLIMENT 12/04/22 01/09/24 History mcg (5,000 unit) capsule omeprazole 40 mg capsule,delayed 40 mg PO DAILY 12/04/22 01/09/24 History release montelukast 10 mg tablet 10 mg PO DAILY 01/29/23 01/09/24 History vitamin E (dl, acetate) 45 mg (100 45 mg PO DAILY 05/10/23 01/09/24 History unit) capsule diazepam 10 mg vaginal DAILY pelvic floor 12/14/23 01/09/24 Rx therapy #30 supp phentermine 37.5 mg tablet 37.5 mg PO DAILY 12/19/23 01/09/24 History (Adipex-P) cetirizine 10 mg tablet (Zyrtec) 10 mg PO BID 12/26/23 01/09/24 History cyanocobalamin (vitamin B-12) 1,000 mcg PO DAILY 12/26/23 01/09/24 History 1,000 mcg capsule hydroxyzine HCl 25 mg tablet 25 mg PO TID 12/26/23 01/09/24 History ondansetron HCl 4 mg tablet 4 mg PO TIDP PRN Nausea #10 tabs 01/09/24 Rx oxycodone-acetaminophen 5 mg-325 1 tab PO Q6H PRN pain 7 days #20 01/09/24 Rx mg tablet tabs New Prescriptions to Start Prescriptions: ondansetron HCl Sb Mcgee oxycodone-acetaminophen Sb Mcgee Allergies Allergy/AdvReac Type Severity Reaction Status Date / Time hydrocodone [From [facility]] AdvReac Unknown NAUSEA/VOMI Verified 01/09/24 10:04 TING Discharge Plan Disposition Patient Disposition: Home, Self-Care Condition: Fair Follow up Plan Follow up with: Sb Mcgee MD [Physician] - 01/15/24 4:00 pm Prescriptions/Medication Reconciliation: New ondansetron HCl 4 mg tablet 4 mg PO TIDP PRN (Reason: Nausea) Qty: 10 0RF oxycodone-acetaminophen 5-325 mg tablet 1 tab PO Q6H PRN (Reason: pain) 7 Days Qty: 20 0RF Continued omeprazole 40 mg capsule,delayed release(DR/EC) 40 mg PO DAILY Patient Comments: TAKE 1 CAPSULE BY MOUTH EVERY DAY cholecalciferol (vitamin D3) 125 mcg (5,000 unit) capsule 125 mcg PO DAILY montelukast 10 mg tablet 10 mg PO DAILY vitamin E (dl, acetate) 45 mg (100 unit) capsule 45 mg PO DAILY phentermine [Adipex-P] 37.5 mg tablet 37.5 mg PO DAILY Patient Comments: TAKE 1 TABLET BY MOUTH ONCE DAILY fluticasone propionate 50 mcg/actuation spray,suspension 1 spray INTRANASAL DAILYP PRN (Reason: Allergy Symptoms) Patient Comments: SHAKE LIQUID AND USE 2 SPRAYS IN EACH NOSTRIL EVERY DAY cetirizine [Zyrtec] 10 mg tablet 10 mg PO BID Patient Comments: TAKE 1 TABLET BY MOUTH TWICE DAILY hydroxyzine HCl 25 mg tablet 25 mg PO TID cyanocobalamin (vitamin B-12) 1,000 mcg capsule 1,000 mcg PO DAILY diazepam 10 mg suppository 10 mg vaginal DAILY Qty: 30 5RF Problem Reconciliation Problems Reviewed?: Yes Patient Discharge Instructions ACTIVITY: Limited activity DIET: continue same diet Patient Instructions: Thyroidectomy, DI for Thyroidectomy, DI for Surgical Site Infection, Surgical Site Infection Providers Primary Care Provider: George Ibrahim Admit Provider: Alex Silverio Attending Provider: Alex Silverio
[2024-01-10 07:31] VITALS: BP 117/69; PULSE 86; RESP 17; TEMP 36.9; O2SAT 100
[2024-01-10] MEDS: LORATADINE 10MG TABLET 10 MG PO (07:46)
[2024-01-10] MEDS: IBUPROFEN 600 MG TABLET PO (07:46)
[2024-01-10 08:00] VITALS: PULSE 90
--- NOTE | 2024-01-10 08:28 | EXP.ANES.II ---
[facility] Anesthesia Record Part II Anesthesia Record Part II Discharge Time: 14:10 Destination: Medical Surgical Department PACU nurse assessment reviewed?: Yes Patient Condition:: Good Anesthesia Complications:: None Swallowing reflex intact?: Yes Airway Patency: Patent Cyanosis?: No Blood Pressure: 130/83 SaO2: 97 Respiratory Rate: 16 Pulse Rate: 108 Temperature: 97.7 F Mental Status: Alert & Oriented Pain level:: 0 Nausea and/or vomitting:: None Intake, IV Amount: 0 Hydration: Adequate Comments:: Pt developed severe pain in post op area that was unrelieved by ordered medications. Decision made for pt to be admitted overnight for observation and pain control.
[2024-01-10 08:30] VITALS: BP 130/83; PULSE 108; RESP 16; TEMP 36.5; O2SAT 97
[2024-01-10] MEDS: HYDROMORPHONE 2MG/ML SYRINGE 2 MG IV (08:52)
[2024-01-10 09:45] LABS: Basophils # 0.1 K/mm3 (0-0.2); Basophils % 0.6 % (0.1-2.0); Eosinophils # 0.1 K/mm3 (0.0-0.4); Eosinophils % 0.7 % (0.1-12.0); Hematocrit 39.1 % (37.0-47.0); Hemoglobin 13.3 g/dL (12.2-16.2); Lymphocytes # 3.7 K/mm3 (0.7-4.5); Lymphocytes % 18.9 % (10-50); Mean Corpuscular HGB Conc 34.1 g/dL (31.8-35.4); Mean Corpuscular Hemoglobin 30.5 pg (27.0-31.2); Mean Corpuscular Volume 89.6 fl (81-99); Mean Platelet Volume 8.9 fl (7.4-10.4); Monocytes # 1.3 K/mm3 (0.1-1.0); Monocytes % 6.6 % (1.7-9.3); Neutrophils # 14.3 K/mm3 (1.8-7.8); Neutrophils % 73.2 % (37.0-80.0); Platelet Count 358 K/mm3 (142-424); Red Blood Count 4.36 M/mm3 (4.20-5.40); Red Cell Distribution Width 13.1 % (11.5-17.5); White Blood Count 19.5 K/mm3 (4.8-10.8)
[2024-01-10 09:48] LABS: MANUAL DIFFERENTIAL MANUAL DIFFERENTIAL (MANUAL DIFF)
[2024-01-10 09:54] LABS: Chloride 110 mmol/L (98-107); Sodium 140 mmol/L (136-145)
[2024-01-10 09:55] LABS: Potassium 3.4 mmoL/L (3.5-5.1)
[2024-01-10 09:57] LABS: Alanine Aminotransferase 31 U/L (12-78); Alkaline Phosphatase 63 U/L (38-126); Anion Gap 8.4 mEq/L (5-15); Aspartate Amino Transferase 27 U/L (14-36); Bilirubin,Total 0.2 mg/dl (0.2-1.3); Blood Urea Nitrogen 8 mg/dl (7-17); Carbon Dioxide 25 mmol/L (22.0-30.0); Creatinine Clearance Estimated 201 mL/min (50-200); Estimated Glomerular Filt Rate 112 ml/min (>60); GFR (African American) 135 ML/MIN (>60)
[2024-01-10 09:58] LABS: Albumin Level 3.6 g/dl (3.5-5.0); Albumin/Globulin Ratio 1.3 (1.1-1.8); Calcium 8.7 mg/dl (8.4-10.2); Globulin 2.7 g/dL (1.3-3.2); Glucose 105 mg/dl (74-100); Magnesium 1.8 mg/dl (1.6-2.3); Total Protein,Serum 6.3 g/dl (6.3-8.2)
[2024-01-10 10:42] LABS: Lymphocytes % 41 % (10-50); Monocytes % 1 % (2-9); Neutrophils % 58 % (42-76); Platelet Estimate Normal; RBC Morphology Normal; Total Cells Counted 100
[2024-01-10 13:20] LABS: Microscopic, Urine URINE MICROSCOPIC (MICROSCOPIC)
[2024-01-10 13:27] LABS: Appearance,Urine SL CLOUDY (Clear); Bilirubin,Urine Negative (Negative); Blood, Urine TRACE-I (Negative); Color,Urine YELLOW (Yellow); Glucose,Urine (UA) Negative (Negative); Ketones,Urine Negative (Negative); Leukocyte Esterase,Urine Negative (Negative); Nitrate,Urine Negative (Negative); Protein,Urine Negative (Negative); Specific Gravity, Urine 1.025 (1.005-1.030); Urobilinogen,Urine 0.2 EU/dl (0.2)
[2024-01-10 13:43] LABS: RBC,Urine Occasional #/hpf (0-3)
--- NOTE | 2024-01-14 11:22 | CARE MANAGER ---
Called and spoke with patient regarding recent discharge. She stated that she is feeling about the same and is planning to attend her f/u appt with ENT tomorrow. No questions or concerns voiced at time of call.
== END 2024-01-10 13:20 | disposition home or self-care (01) ==
LOC: 2ND 15:18
PROVIDERS: Nurse Practitioner; Student in an Organized Health Care Education/Training Program; Admitting Provider Internal Medicine Adolescent Medicine; PCP Internal Medicine Adolescent Medicine; Visit Provider Internal Medicine Adolescent Medicine
PROC: (CPT 60220; principal; 2024-01-09 11:45)
DX: E04.1 Nontoxic single thyroid nodule (principal); F33.1 Major depressive disorder, recurrent, moderate; F17.210 Nicotine dependence, cigarettes, uncomplicated; Z79.899 Other long term (current) drug therapy; G89.18 Other acute postprocedural pain; M54.2 Cervicalgia
CPT/HCPCS: 60220; 36415; 80053; 81001; 81025; 83735; 85007; 85025; 93005; 96374; G0378; J0330; J0690; J1100; J1170; J2250; J2405; J2550; J3010; J7120

== ENCOUNTER 2024-01-22 18:24 | Outpatient (CLI) | payer OTHER, SELFPAY | END 2024-01-22 23:59 | disposition home or self-care (01) | LOC: RT 18:28 | PROVIDERS: PCP Internal Medicine Adolescent Medicine; Visit Provider Family Medicine | DX: R00.2 Palpitations (principal) | CPT/HCPCS: 93225; 93226; 93227 ==

== ENCOUNTER 2024-02-07 19:03 | Outpatient (CLI) | payer OTHER, SELFPAY ==
[2024-02-07 20:26] LABS: Chol/HDL Ratio 6.4 (1-3.5); Cholesterol 191 mg/dl (140-200); HDL Cholesterol 30 mg/dl (40-60); Triglycerides 178 mg/dl (30-150); VLDL Cholesterol 36 mg/dL (0-40)
[2024-02-07 20:58] LABS: Thyroid Stimulating Hormone 3.84 uIU/mL (0.465-4.68)
[2024-02-11 15:10] LABS: Calcium, Ionized 4.6 mg/dL (4.5-5.6)
== END 2024-02-07 23:59 | disposition home or self-care (01) ==
LOC: LAB.DROPOF 19:04
PROVIDERS: Family Medicine; PCP Student in an Organized Health Care Education/Training Program; Visit Provider Student in an Organized Health Care Education/Training Program
DX: E89.0 Postprocedural hypothyroidism (principal); K76.0 Fatty (change of) liver, not elsewhere classified
CPT/HCPCS: 80061; 82330; 84439; 84443

== ENCOUNTER 2024-04-09 09:35 | Outpatient (CLI) | payer OTHER, SELFPAY ==
[2024-04-10 11:41] LABS: Adenovirus,PCR Not Detected (NotDetected); Bordetella Pertussis Not Detected (NotDetected); Chlamydophila Pneumoniae, PCR Not Detected (NotDetected); Coronavirus 229E Not Detected (NotDetected); Coronavirus NL63 Not Detected (NotDetected); Coronavirus OC43 Not Detected (NotDetected); Coronovirus HKU1,PCR Not Detected (NotDetected); Human Metapneumovirus Not Detected (NotDetected); Influenza A, PCR Not Detected (NotDetected); Influenza AH1, 2009 Not Detected (NotDetected); Influenza AH1, PCR Not Detected (NotDetected); Influenza AH3,PCR Not Detected (NotDetected); Influenza B, PCR Not Detected (NotDetected); Mycoplasma Pneumoniae, PCR Not Detected (NotDetected); Parainfluenza 1, PCR Not Detected (NotDetected); Parainfluenza 2, PCR Not Detected (NotDetected); Parainfluenza 3, PCR Not Detected (NotDetected); Parainfluenza 4, PCR Not Detected (NotDetected); Respiratory Syncytial Virus Not Detected (NotDetected); Rhinovirus/Enterovirus Not Detected (NotDetected)
[2024-04-10 13:57] LABS: Coronavirus 19, PCR Detected (NotDetected)
== END 2024-04-09 23:59 | disposition home or self-care (01) ==
LOC: LAB.DROPOF 04-10 09:54
PROVIDERS: PCP Nurse Practitioner; Visit Provider Nurse Practitioner
DX: R69 Illness, unspecified (principal)
CPT/HCPCS: 87265; 87486; 87581; 87632; 87635; 87636

== ENCOUNTER 2024-04-28 12:28 | Outpatient (CLI) | payer OTHER, SELFPAY ==
[2024-04-28 17:07] LABS: HIV (1&2) Antibody Rapid NONREACTIVE (NONREACTIVE)
[2024-04-29 05:15] LABS: Hepatitis B Surface Antigen Negative (Negative)
[2024-04-29 12:13] LABS: Rapid Plasma Reagin Ab Titer Non Reactive titer (NonRea<1:1)
== END 2024-04-28 23:59 | disposition home or self-care (01) ==
LOC: LAB 12:29
PROVIDERS: PCP Nurse Practitioner; Visit Provider Obstetrics & Gynecology
DX: A64 Unspecified sexually transmitted disease (principal)
CPT/HCPCS: 36415; 86593; 87340; 87389

== ENCOUNTER 2024-04-29 02:39 | Emergency (ER) | payer OTHER, SELFPAY ==
[2024-04-29 02:52] VITALS: BP 147/101; PULSE 127; RESP 20; TEMP 36.9; O2SAT 99; BMI 32.5
--- NOTE | 2024-04-29 03:34 | CT_ITS ---
PROCEDURE INFORMATION: Exam: CT Abdomen And Pelvis With Contrast Exam date and time: 04/29/2024 4:27 AM Age: 38 years old Clinical indication: Abdominal pain; Additional info: Pelvic floor spasm with known prolapse TECHNIQUE: Imaging protocol: Computed tomography of the abdomen and pelvis with contrast. Radiation optimization: All CT scans at this facility use at least one of these dose optimization techniques: automated exposure control; mA and/or kV adjustment per patient size (includes targeted exams where dose is matched to clinical indication); or iterative reconstruction. Contrast material: ISOVUE; Contrast volume: 75 ml; Contrast route: IV; COMPARISON: CT ABDOMEN PELVIS W CON 05/12/2022 10:30 AM FINDINGS: Lungs: Imaging through the lower thorax demonstrates an unchanged 3 mm left lower lobe pulmonary nodule. Liver: The liver is enlarged. Gallbladder and biliary ducts: Normal. No calcified stones. No ductal dilation. Pancreas: Normal. No ductal dilation. Spleen: Normal. No splenomegaly. Adrenal glands: Normal. No mass. Kidneys and ureters: Normal. No hydronephrosis. Stomach and bowel: Suboptimal evaluation gastric wall due to underdistention of the gastric lumen. Mild dilatation of small bowel loops may be related to enteritis. No evidence of small bowel obstruction or colitis. Increased stool content throughout the colon. Colon diverticulosis without diverticulitis. Questionable small proximal duodenal diverticulum. Appendix: No evidence of appendicitis. Intraperitoneal space: Unremarkable. No free air. No significant fluid collection. Vasculature: Unremarkable. No abdominal aortic aneurysm. Lymph nodes: Subcentimeter right lower quadrant lymph node enlargement. Mild bilateral inguinal lymph node enlargement. Unchanged 7 x 5 mm pericardiac lymph node. Urinary bladder: Unremarkable as visualized. Reproductive: 1.7 cm right ovarian cyst. Suggestion of a 1 cm exophytic fibroid of the uterine fundus. Bones/joints: Unremarkable. No acute fracture. Soft tissues: Unremarkable. IMPRESSION: 1. 1.7 cm right ovarian cyst. Suggestion of a 1 cm exophytic fibroid of the uterine fundus. 2. No overt pelvic floor prolapse presentation. Dynamic pelvic floor MRI evacuation photography may be helpful if clinically indicated. 3. Hepatomegaly. 4. Colon diverticulosis without diverticulitis. 5. Mild dilatation of small bowel loops may be related to enteritis. 6. Unchanged 3 mm left lower lobe pulmonary nodule. For patients at low risk (minimal or absent history of smoking and of other known risk factors), no routine follow-up is indicated. For patients at high risk (history of smoking or of other known risk factors), consider optional CT Chest at 12 months. (Reference: Alireza) 7. Subcentimeter right lower quadrant lymph node enlargement. Mild bilateral inguinal lymph node enlargement. Unchanged 7 x 5 mm pericardiac lymph node. REFERENCES: Alireza Orosco, et al. Guidelines for Management of Incidental Pulmonary Nodules Detected on CT Images: From the Fleischner Society 2017. Radiology. 2017;284(1):228-243.
[2024-04-29 03:43] VITALS: BP 127/81; PULSE 75; O2SAT 100
--- NOTE | 2024-04-29 03:46 | PC.NURSE ---
Dr. Myers at bedside for vaginal exam. Wilton Truong RN assisted Dr. Myers.
[2024-04-29] MEDS: METHOCARBAMOL 500MG TABLET 1000 MG PO (03:52)
[2024-04-29] MEDS: MORPHINE 4MG/ML SYRINGE 4 MG IV ×2 (03:53→05:27)
[2024-04-29] MEDS: ONDANSETRON 4MG/2ML VIAL 4 MG IV (03:53)
[2024-04-29 03:56] LABS: Microscopic, Urine URINE MICROSCOPIC (MICROSCOPIC)
--- NOTE | 2024-04-29 03:57 | PC.NURSE ---
Chaperoned Dr. Myers while Dr Myers performed vaginal exam
[2024-04-29 03:58] LABS: Basophils # 0.1 K/mm3 (0-0.2); Basophils % 1.1 % (0.1-2.0); Eosinophils # 0.2 K/mm3 (0.0-0.4); Eosinophils % 1.2 % (0.1-12.0); Hematocrit 40.4 % (37.0-47.0); Hemoglobin 13.9 g/dL (12.2-16.2); Lymphocytes # 2.6 K/mm3 (0.7-4.5); Lymphocytes % 20.6 % (10-50); Mean Corpuscular HGB Conc 34.4 g/dL (31.8-35.4); Mean Corpuscular Hemoglobin 29.6 pg (27.0-31.2); Mean Platelet Volume 7.6 fl (7.4-10.4); Monocytes # 0.9 K/mm3 (0.1-1.0); Monocytes % 6.8 % (1.7-9.3); Neutrophils # 8.8 K/mm3 (1.8-7.8); Neutrophils % 70.3 % (37.0-80.0); Platelet Count 341 K/mm3 (142-424); Red Cell Distribution Width 12.9 % (11.5-17.5); White Blood Count 12.5 K/mm3 (4.8-10.8)
[2024-04-29 04:00] LABS: Appearance,Urine CLEAR (Clear); Bilirubin,Urine Negative (Negative); Blood, Urine Negative (Negative); Color,Urine YELLOW (Yellow); Glucose,Urine (UA) Negative (Negative); Ketones,Urine Negative (Negative); Leukocyte Esterase,Urine Negative (Negative); Nitrate,Urine Negative (Negative); Protein,Urine Negative (Negative); Urobilinogen,Urine 0.2 EU/dl (0.2)
[2024-04-29 04:01] LABS: Albumin Level 3.9 g/dl (3.5-5.0); Chloride 105 mmol/L (98-107); Sodium 138 mmol/L (136-145)
[2024-04-29 04:02] LABS: Potassium 3.6 mmoL/L (3.5-5.1)
[2024-04-29 04:04] LABS: Alanine Aminotransferase 73 U/L (12-78); Anion Gap 10.6 mEq/L (5-15); Aspartate Amino Transferase 38 U/L (14-36); Blood Urea Nitrogen 10 mg/dl (7-17); Carbon Dioxide 26 mmol/L (22.0-30.0); Creatinine Clearance Estimated 158 mL/min (50-200); Estimated Glomerular Filt Rate 94 ml/min (>60); GFR (African American) 113 ML/MIN (>60)
[2024-04-29 04:05] LABS: Albumin/Globulin Ratio 1.4 (1.1-1.8); Alkaline Phosphatase 73 U/L (38-126); Bilirubin,Total 0.4 mg/dl (0.2-1.3); Calcium 8.7 mg/dl (8.4-10.2); Globulin 2.7 g/dL (1.3-3.2); Glucose 104 mg/dl (74-100); Total Protein,Serum 6.6 g/dl (6.3-8.2)
[2024-04-29 04:15] LABS: HCG Qualitative, Serum Negative (Negative)
[2024-04-29 04:15] LABS: Bacteria,Urine 1+ /lpf
[2024-04-29] MEDS: IOPAMIDOL-370 (76%);100ML BOTTLE 75 ML IV (04:30)
[2024-04-29] MEDS: SODIUM CHLORIDE 0.9% 10ML SYR (RAD ONLY) 10 ML IV (04:31)
[2024-04-29 04:56] LABS: HIV (1&2) Antibody Rapid NONREACTIVE (NONREACTIVE)
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
--- NOTE | 2024-04-29 05:40 | PC.NURSE ---
paged Dr. Moise for Dr. Myers for OBGYN consult
--- NOTE | 2024-04-29 05:41 | PC.NURSE ---
Dr. Myers s/w Dr. Moise
--- NOTE | 2024-04-29 05:52 | PC.NURSE ---
Dr. Myers at bedside s/w pt & family. Discussing results and Dr. Moise's consult recommendations & POC.
[2024-04-29 06:04] VITALS: BP 131/91; PULSE 86; RESP 18; TEMP 36.6; O2SAT 99
[2024-04-30 10:14] LABS: HCV Ab Non Reactive (Non Reactive)
== END 2024-04-29 06:09 | disposition home or self-care (01) ==
PROVIDERS: Emergency Provider Emergency Medicine; PCP Nurse Practitioner
DX: N83.201 Unspecified ovarian cyst, right side (principal); R10.2 Pelvic and perineal pain
CPT/HCPCS: 74177; 80053; 81001; 84703; 85025; 86803; 87389; 96374; 96375; 99285; J2270; J2405; Q9967

== ENCOUNTER 2024-08-01 15:59 | Outpatient (CLI) | payer OTHER, SELFPAY ==
[2024-08-01 17:33] LABS: Thyroid Stimulating Hormone 3.37 uIU/mL (0.465-4.68)
== END 2024-08-01 23:59 | disposition home or self-care (01) ==
LOC: LAB 16:01
PROVIDERS: PCP Family Medicine; Visit Provider Obstetrics & Gynecology Female Pelvic Medicine and Reconstructive Surgery
DX: C73 Malignant neoplasm of thyroid gland (principal); Z01.818 Encounter for other preprocedural examination
CPT/HCPCS: 36415; 84443

== ENCOUNTER 2024-08-08 14:25 | Outpatient (CLI) | payer BC, OTHER, SELFPAY ==
--- NOTE | 2024-08-08 14:41 | ECG_ITS ---
APPROVED REPORT Exam: Resting ECG HR:86 bpm ECG Measurements Heart Rate 86 AXES WY 139 P 66 QRSd 91 QRS 78 QT 366 T 36 QTc 409 Conclusion SINUS RHYTHM NORMAL ECG UNCONFIRMED REPORT Electronically signed by : George Ibrahim MD 08/09/2024 12:41:19
[2024-08-08 14:52] LABS: Basophils # 0.1 K/mm3 (0-0.2); Basophils % 1.2 % (0.1-2.0); Eosinophils # 0.2 K/mm3 (0.0-0.4); Eosinophils % 1.7 % (0.1-12.0); Hematocrit 39.5 % (37.0-47.0); Hemoglobin 13.7 g/dL (12.2-16.2); Lymphocytes % 33.3 % (10-50); Mean Corpuscular HGB Conc 34.7 g/dL (31.8-35.4); Mean Corpuscular Hemoglobin 29.9 pg (27.0-31.2); Mean Corpuscular Volume 86.2 fl (81-99); Mean Platelet Volume 9.5 fl (7.4-10.4); Monocytes # 0.8 K/mm3 (0.1-1.0); Monocytes % 9.1 % (1.7-9.3); Neutrophils # 4.9 K/mm3 (1.8-7.8); Neutrophils % 54.4 % (37.0-80.0); Platelet Count 373 K/mm3 (142-424); Red Blood Count 4.58 M/mm3 (4.20-5.40); Red Cell Distribution Width 12.1 % (11.5-17.5)
[2024-08-08 15:25] LABS: Chloride 106 mmol/L (98-107); Potassium 4.3 mmoL/L (3.5-5.1); Sodium 137 mmol/L (136-145)
[2024-08-08 15:27] LABS: HCG Qualitative, Serum Negative (Negative)
[2024-08-08 15:28] LABS: Anion Gap 11.3 mEq/L (5-15); Blood Urea Nitrogen 14 mg/dl (7-17); Carbon Dioxide 24 mmol/L (22.0-30.0); Estimated Glomerular Filt Rate 93 ml/min (>60); GFR (African American) 113 ML/MIN (>60)
[2024-08-08 15:29] LABS: Calcium 9.5 mg/dl (8.4-10.2); Glucose 77 mg/dl (74-100)
== END 2024-08-08 23:59 | disposition home or self-care (01) ==
LOC: LAB 14:27
PROVIDERS: PCP Family Medicine; Visit Provider Nurse Practitioner
DX: Z01.818 Encounter for other preprocedural examination (principal)
CPT/HCPCS: 36415; 80048; 84703; 85025; 93005

== ENCOUNTER 2024-08-12 14:03 | Outpatient (CLI) | payer BC, OTHER, SELFPAY ==
--- NOTE | 2024-08-12 14:04 | US_ITS ---
FINAL REPORT TECHNIQUE: Real-time grayscale and color ultrasound of the thyroid was performed. CLINICAL HISTORY: 6 month; h/o papillary thyroid carcinoma COMPARISON: 06/11/2023 FINDINGS: There has been interval left thyroidectomy right. The right thyroid gland measures 49 x 15 x 17 mm. The isthmus measures 3 mm. The parenchyma is unremarkable . Nodules: There are solid hypoechoic nodules in the right lobe of the thyroid, largest measuring up to 4 mm bursal. These are consistent with TR 4, similar to the prior study. IMPRESSION: Right TR 4 nodule. No follow-up required per TI-RADS criteria. Interval left thyroidectomy. Reviewed, Interpreted and Dictated by James Matta MD Transcribed by Jamilah Sellers Authenticated and [facility]
== END 2024-08-12 23:59 | disposition home or self-care (01) ==
LOC: RAD 14:04
PROVIDERS: PCP Family Medicine; Visit Provider Student in an Organized Health Care Education/Training Program
DX: E89.0 Postprocedural hypothyroidism (principal)
CPT/HCPCS: 76536

== ENCOUNTER 2024-09-22 11:38 | Outpatient (CLI) | payer BC, OTHER, SELFPAY ==
[2024-09-22 23:04] LABS: Alanine Aminotransferase 27 U/L (12-78); Albumin Level 4.6 g/dl (3.5-5.0); Albumin/Globulin Ratio 1.8 (1.1-1.8); Alkaline Phosphatase 71 U/L (38-126); Anion Gap 12.7 mEq/L (5-15); Aspartate Amino Transferase 23 U/L (14-36); Bilirubin,Total 0.3 mg/dl (0.2-1.3); Blood Urea Nitrogen 13 mg/dl (7-17); Calcium 9.5 mg/dl (8.4-10.2); Carbon Dioxide 27 mmol/L (22.0-30.0); Chloride 104 mmol/L (98-107); Estimated Glomerular Filt Rate 93 ml/min (>60); GFR (African American) 113 ML/MIN (>60); Globulin 2.5 g/dL (1.3-3.2); Glucose 95 mg/dl (74-100); Potassium 4.7 mmoL/L (3.5-5.1); Sodium 139 mmol/L (136-145); Total Protein,Serum 7.1 g/dl (6.3-8.2)
[2024-09-22 23:53] LABS: Vitamin B12 > 1000 pg/mL (239-931)
== END 2024-09-22 23:59 | disposition home or self-care (01) ==
LOC: LAB.DROPOF 09-25 09:24
PROVIDERS: PCP Family Medicine; Visit Provider Family Medicine
DX: E04.1 Nontoxic single thyroid nodule (principal)
CPT/HCPCS: 80053; 82607; 82670; 83001

== ENCOUNTER 2024-09-25 13:07 | Outpatient (CLI) | payer BC, OTHER, SELFPAY ==
[2024-09-25 19:59] LABS: Human Rhinovirus Not Detected (NotDetected); Influenza A, PCR Not Detected (NotDetected); Influenza B, PCR Not Detected (NotDetected); Respiratory Syncytial Virus Not Detected (NotDetected)
[2024-09-25 22:17] LABS: Coronavirus 19, PCR Detected (NotDetected)
== END 2024-09-25 23:59 | disposition home or self-care (01) ==
LOC: LAB.DROPOF 09-29 13:08
PROVIDERS: PCP Nurse Practitioner Family; Visit Provider Nurse Practitioner Family
DX: R05.9 Cough, unspecified (principal); Z20.822 Contact with and (suspected) exposure to COVID-19
CPT/HCPCS: 87631

== ENCOUNTER 2024-11-12 12:15 | Outpatient (CLI) | payer BC, OTHER, SELFPAY ==
[2024-11-12 12:35] LABS: Basophils # 0.1 K/mm3 (0-0.2); Basophils % 1.2 % (0.1-2.0); Eosinophils # 0.3 Kmm3 (0.0-0.4); Eosinophils % 2.9 % (0.1-12.0); Hematocrit 39.6 % (37.0-47.0); Hemoglobin 13.6 g/dL (12.2-16.2); Lymphocytes # 2.6 K/mm3 (0.7-4.5); Lymphocytes % 25.4 % (10-50); Mean Corpuscular HGB Conc 34.3 g/dL (31.8-35.4); Mean Corpuscular Hemoglobin 30.2 pg (27.0-31.2); Mean Corpuscular Volume 87.8 fl (81-99); Mean Platelet Volume 9.4 fl (7.4-10.4); Monocytes # 0.8 K/mm3 (0.1-1.0); Monocytes % 7.3 % (1.7-9.3); Neutrophils # 6.5 K/mm3 (1.8-7.8); Neutrophils % 62.9 % (37.0-80.0); Nucleated Red Blood Cells # 0 10^3/uL; Nucleated Red Blood Cells % 0 %; Platelet Count 398 K/mm3 (142-424); Red Blood Count 4.51 M/mm3 (4.20-5.40); Red Cell Distribution Width 12.1 % (11.5-17.5); Red Cell Distribution Width-SD 39.1 fL; White Blood Count 10.4 K/mm3 (4.8-10.8)
[2024-11-12 12:55] LABS: Alanine Aminotransferase 31 U/L (12-78); Albumin Level 3.7 g/dl (3.5-5.0); Albumin/Globulin Ratio 1.2 (1.1-1.8); Alkaline Phosphatase 62 U/L (38-126); Anion Gap 13.2 mEq/L (5-15); Aspartate Amino Transferase 30 U/L (14-36); Bilirubin,Total 0.4 mg/dl (0.2-1.3); Blood Urea Nitrogen 11 mg/dl (7-17); Calcium 8.9 mg/dl (8.4-10.2); Carbon Dioxide 28 mmol/L (22.0-30.0); Chloride 104 mmol/L (98-107); Chol/HDL Ratio 3.7 (1-3.5); Cholesterol 145 mg/dl (140-200); Estimated Glomerular Filt Rate 111 ml/min (>60); GFR (African American) 135 ML/MIN (>60); Glucose 90 mg/dl (74-100); HDL Cholesterol 39 mg/dl (40-60); Potassium 4.2 mmoL/L (3.5-5.1); Sodium 141 mmol/L (136-145); Total Protein,Serum 6.7 g/dl (6.3-8.2); Triglycerides 76 mg/dl (30-150); VLDL Cholesterol 15 mg/dL (0-40)
[2024-11-12 13:12] LABS: 25-OH Vitamin D, Total 46.6 ng/mL (30-100)
[2024-11-12 13:13] LABS: Free Thyroxine Index 3.1 ug/dL (5.93-13.13); T4 (Thyroxine) 9.5 ug/dl (5.53-11.0); Triiodothryronine (T3) Uptake 33 % (23.5-40.5)
[2024-11-12 13:27] LABS: Thyroid Stimulating Hormone 2.09 uIU/mL (0.465-4.68)
[2024-11-13 05:23] LABS: Hepatitis B Surface Antigen Negative (Negative)
[2024-11-13 07:16] LABS: RPR W/RFX Titers Nonreactive (Nonreactive)
== END 2024-11-12 23:59 | disposition home or self-care (01) ==
LOC: LAB 12:15
PROVIDERS: PCP Family Medicine; Visit Provider Obstetrics & Gynecology
DX: Z00.00 Encounter for general adult medical examination without abnormal findings (principal); Z72.51 High risk heterosexual behavior; Z20.9 Contact with and (suspected) exposure to unspecified communicable disease; Z68.31 Body mass index [BMI] 31.0-31.9, adult; E66.9 Obesity, unspecified
CPT/HCPCS: 36415; 80053; 80061; 82306; 84436; 84443; 84479; 85025; 86592; 87340

== ENCOUNTER 2025-03-21 11:20 | Emergency (ER) | payer BC, MEDICAID, SELFPAY ==
--- OUTSIDE RECORDS SUMMARY | 2025-02-12 11:50 | XMS_ITS | Encounter Summary ---
Author Organization Healthcare Address [address] [place] [address] Care Team Providers Care Marketing Project Manager Name Role Phone Franklyn Cole MD Primary Care Provider [phone] Reason for Visit * Auth/Cert (Routine) Specialty Diagnoses / Procedures Referred By Contac t Referred To Contact Diagnoses Pelvic pain in female Levator spasm Pelvic pain in female [R10.2] Levator spasm [M62.838] Procedures [place] CHEMODENERVATION ONE EXTREMITY 1-4 MUSCLE INJECTION, ONABOTULINUMTOXINA PELVIC FLOOR (100 UNITS) Benjamin Bender MD [address] [address] Phone: tel: fax: [facility] Operating Room [address] [place] [address] Phone: tel: Referral ID Status Reason Start Date Expiration Date Visits Re quested Visits Authorized [id number] 1 1 Encounter Details Date Type Department Care Team (Latest Contact Info) Description 02/12/2025 11:50 AM EDT - 02/12/2025 2:35 PM EDT Hospital Encounter [facility] Operating [address] [place] [address] Benjamin Bender MD [address] [address] Discharge Disposition: Home or Self [...] MG tablet Take 1 tablet by mouth nightly. ibuprofen 600 MG tablet Take 1 tablet [...] 1 time each day. Every 3 days ago documented as of this encounter Miscellaneous Notes [...] to OR for injections. Please message on-call [facility] resident via [employer] Secure Chat or page [phone] (M-F 6a-6p) or [phone] (nights/weekends) for questions or concerns regarding this patient's care. Grieslda Figueredo MD PGY3 Obstetrics and Gynecology [1] [...] Alcohol abuse Father Bhavik Drug abuse Father Bhaivk Depression Father Bhavik Intellectual Disability Father Bhavik [...] Description 04/09/2025 10:20 AM EDT Office Visit [facility] Medicine Specialties [address] [place] [address] Griselda Cope, SATURATOR, DNP [address] [facility] [address] [place] [address] 04/15/2025 2:10 PM EDT Hospital Encounter [facility] Operating Room [address] [place] [address] Benjamin Bender MD [address] [facility] [address] [place] [address] 04/15/2025 2:10 PM EDT - 04/15/2025 3:45 PM EDT Surgery [facility] Operating Room [address] [place] [address] Benjamin Bender MD [address] [facility] [address] [place] [address] INJECTION, ONABOTULINUMTOXINA (100 Units), [id number] Scheduled Procedures Name Priority Associated Diagnoses Date/Ti me INJECTION, ONABOTULINUMTOXINA Levator spasm 04/15/2025 2:10 PM EDT documented as of this encounter Procedures Procedure Name Priority Date/Time Associated Diagnosis Comments POCT , URINE Routine 02/12/2025 1:21 PM EDT POCT GLUCOSE METER UNSOLICITED RESULTS Routine 02/12/2025 1:19 PM EDT documented in this encounter Results * POCT , URINE (02/12/2025 1:21 PM EDT) POCT Test, Urine Negative Males and Non- Females: Negative 02/12/2025 1:28 PM EDT [facility] Psychological Aide ID Marvin Castro 02/12/2025 1:28 PM EDT [facility] Device ID [id number] 02/12/2025 1:28 PM EDT [facility] Urine Urine specimen obtained by clean catch procedure / Unknown 02/12/2025 1:21 PM EDT 02/12/2025 1:28 PM EDT us Benjamin Bender MD LAB POINT OF CARE TE ST DOCKED DEVICE UNSOLICITED RESULTS Final Result Performing Organization Address [facility] de Phone Number [facility] [address] [place] [address] * POCT glucose meter (02/12/2025 1:19 PM [...] 02/12/2025 1:20 PM EDT [facility] Psychological Aide ID Marvin Castro 02/12/2025 1:20 PM EDT [facility] Device ID [id number] 02/12/2025 1:20 PM EDT [facility]ALTH[facility] Specimen Type POC Capillary 02/12/2025 1:20 PM EDT [facility] Blood Capillary blood specimen / Unknown 02/12/2025 1:19 PM EDT 02/12/2025 1:20 PM EDT us Benjamin Bender MD LAB POINT OF CARE TE ST DOCKED DEVICE UNSOLICITED RESULTS Final Result Performing Organization Address [facility] de Phone Number [facility] [address] [place] [address] documented in this encounter Visit Diagnoses Not [...] at 1659, Routine 1334 (New Bag - [facility] ider: Arelis Sheridan RN) PRN Medication Order [...] documented as of this encounter Care Teams Marketing Project Manager Relationship Specialty Start Date End Date Franklyn Cole MD [address] [place] [address] PCP - General 10/17/24 documented as of this encounter
--- OUTSIDE RECORDS SUMMARY | 2025-02-12 13:35 | XMS_ITS | Encounter Summary ---
Author Organization Healthcare Address [address] [place] [address] Care Team Providers Care Ekg Manager Name Role Phone Franklyn Cole MD Primary Care Provider [phone] Reason for Visit * Auth/Cert (Routine) Specialty Diagnoses / Procedures Referred By Candis echevarria Referred To Contact Diagnoses Pelvic pain in female Levator spasm Pelvic pain in female [R10.2] Levator spasm [M62.838] Procedures MA CHEMODENERVATION ONE EXTREMITY 1-4 MUSCLE INJECTION, ONABOTULINUMTOXINA PELVIC FLOOR (100 UNITS) Benjamin Bender MD [address] [address] Phone: tel: fax: [facility] Operating Room [address] [place] [address] Phone: tel: Referral ID Status Reason Start Date Expiration Date Visits Re quested Visits Authorized [id number] 1 1 Encounter Details Date Type Department Care Team (Late st Contact Info) Description 02/12/2025 1:35 PM EDT Anesthesia Event [facility] S Operating Room [address] [place] [address] Galo Lawrence MD [address] [place] [address] Gwyn Marrufo CRNA [address] [place] [address] Anesthesia Record Procedure Summary Procedure [...] were not included. Anesthesiologist: Galo Lawrence MD PARTNER CCO: Gwyn Marrufo CRNA Patient: CAMERON Rowland HPI [...] I can consent inthe holding area Location: [address] [place] [address] [facility] OR Surgeons: Benjamin Bender MD Relevant Problems No relevant active problems ALLERGIES Allergies[1] NPO STATUS Date of Last Liquid: 02/12/25 Time of Last Liquid: 929 Date of Last Solid: 02/11/25 Time of Last Solid: 2099 Last Intake Type: Clear fluids Time of Last Void: 1313 Past Medical History[2] AIRWAY HISTORY Airway Detailed [...] ABG No results found for: PHART , QFV5DQX , PO2ART , SO2ART , BEART , HSW2GCY , HCTART , SODIUMART , POTASSIUMART , POCTCL , POCGLU , IONCALART , LACTATE No results found for: PH , PCO2 , PO2 , I5BWMSTT , BASEEXC , HCTSYR , KSYR , CLSYR , GLUSYR , CAION , LACTATE ECHO No echocardiogram results found for the past 12 months PFTs No results found for: AWH5XYS , CSH3TXKH , DZP9BUN , FVCPRED BP Readings from Last 5 Encounters: 12/02/24 130/79 Physical Exam Airway Mallampati: II Mouth opening: normal TM distance: >3 FB Neck ROM: full Cardiovascular Rhythm: regular Rate: normal Dental - normal exam Pulmonary Breath sounds clear to auscultation Neurological Oriented: normal to time, normal to place and normal to person Skin Musculoskeletal Extremities Anesthesia Plan ASA 2 Plan was reviewed with: PARTNER CCO and attending Anesthesia technique(s) discussed with the [...] dyspnea, dysrhythmias, hyperlipidemia, murmur, orthopnea, pacemaker, past [place], PVD or syncope. no hypertension: Exercise tolerance [...] Description 04/09/2025 10:20 AM EDT Office Visit [facility] Medicine Specialties [address] [place] [address] Griselda Cope APRN, DNP [address] [facility] [address] [place] [address] 04/15/2025 2:10 PM EDT Hospital Encounter [facility] Operating Room [address] [place] [address] Benjamin Bender MD [address] [facility] [address] [place] [address] 04/15/2025 2:10 PM EDT - 04/15/2025 3:45 PM EDT Surgery [facility] Operating Room [address] [place] [address] Benjamin Bender MD [address] [facility] [address] [place] [address] INJECTION, ONABOTULINUMTOXINA (100 Units), [id number] Scheduled Procedures Name Priority Associated Diagnoses Date/Ti me INJECTION, ONABOTULINUMTOXINA Levator spasm 04/15/2025 2:10 PM EDT documented as of this encounter Goals Goal Patient Goal Type Associated Problems Recent Progress Patient-Stated? Author Autogenerat ed Goal Care Plan Autogenerated Problem No Oanh Graves RN documented as of this encounter Visit Diagnoses Not on filedocumented in this encounter Additional Health Concerns Active Problems Noted Date Diagnosed Date Autogenerated Problem 03/06/2025 Assessment Noted Time PHQ-9 Depression Total Score: 12 025 11:24 AM EDT A Body Mass Index follow-up plan has been documented for the patient 12/05/2024 7:34 AM EDT documented as of this encounter Care Teams Ekg Manager Relationship Specialty Start Date End Date Franklyn Cole MD [address] [place] [address] PCP - General 10/17/24 documented as of this encounter
[2025-03-21 11:29] VITALS: BP 129/83; PULSE 72; RESP 18; TEMP 36.7; O2SAT 97; BMI 29.0
[2025-03-21 11:34] LABS: Microscopic, Urine URINE MICROSCOPIC (MICROSCOPIC)
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
--- OUTSIDE RECORDS SUMMARY | 2025-03-21 11:35 | XMS_ITS | Encounter Summary ---
Author Organization Healthcare Address [address] [place] [address] Care Team Providers Care Electrical Products Sales Engineer Name Role Phone Franklyn Cole MD Primary Care Provider [phone] Encounter Details Date Type Department Care Team ([facility] Contact Info) Description 01/27/2025 Telephone Medical Office Building Obstetrics and Gynecology [address] [facility], [address] [place] [address] Benjamin Bender MD [address] [facility] [address] [place] [address] Social History Tobacco Use Types Packs/Day Years [...] AM EDT documented as of this encounter Miscellaneous Notes * Telephone Encounter - Rolan Bakerjob Marquez - 01/27/2025 10:51 AM EDT Contacted patient to advise that Due to some facility issues and to ensure the safety of our patients, it is necessary to reschedule your surgery???.?? Patient expressed understanding and have beenadvised that I'd call her back to reschedule her procedure. documented in this encounter Plan of Treatment Upcoming Encounters Date Type Department Care Team (Latest Contact Info) Description 04/09/2025 10:20 AM EDT Office Visit [facility] Medicine Specialties [address] [place] [address] Griselda Cope, DISPATCHER TOW TRUCK, DNP [address] [place] [address] 04/15/2025 2:10 PM EDT Hospital Encounter [facility] S Operating Room [address] [place] [address] Benjamin Bender MD [address] [facility] [address] [place] [address] 04/15/2025 2:10 PM EDT - 04/15/2025 3:45 PM EDT Surgery [facility] Operating Room [address] [place] [address] Benjamin Bender MD [address] [facility] [address] [place] [address] INJECTION, ONABOTULINUMTOXINA (100 Units), [id number] Scheduled Procedures Name Priority Associated Diagnoses Date/Ti me INJECTION, ONABOTULINUMTOXINA Levator spasm 04/15/2025 2:10 PM EDT documented as of this encounter Visit Diagnoses Not on filedocumented in this encounter Additional Health Concerns Assessment Noted Time PHQ-9 Depression Total Score: 12 025 11:24 AM EDT A Body Mass Index follow-up plan has been documented for the patient 12/05/2024 7:34 AM EDT documented as of this encounter Care Teams Electrical Products Sales Engineer Relationship Specialty Start Date End Date Franklyn Cole MD [address] [place] [address] PCP - General 10/17/24 documented as of this encounter
--- OUTSIDE RECORDS SUMMARY | 2025-03-21 11:35 | XMS_ITS | Encounter Summary ---
Author Organization Healthcare Address [address] [place] [address] Care Team Providers Care Food Beverage Supervisor Name Role Phone Franklyn Cole MD Primary Care Provider [phone] Encounter Details Date Type Department Care Team (Latest Contact Info) Description 02/05/2025 Travel Social History Tobacco Use Types Packs/Day Years [...] AM EDT documented as of this encounter Plan of Treatment Upcoming Encounters Date Type Department Care Team (Latest Contact Info) Description 04/09/2025 10:20 AM EDT Office Visit [facility] Medicine Specialties [address] [place] [address] Griselda oCpe APRN, DNP [address] [place] [address] 04/15/2025 2:10 PM EDT Hospital Encounter [facility] Operating Room [address] [place] [address] Benjamin Bender MD [address] [facility] [address] [place] [address] 04/15/2025 2:10 PM EDT - 04/15/2025 3:45 PM EDT Surgery [facility] Operating [address] [place] [address] Benjamin Bender MD [address] [facility] [address] [place] [address] INJECTION, ONABOTULINUMTOXINA (100 Units), [id number] [...] documented as of this encounter Care Teams Food Beverage Supervisor Relationship Specialty Start Date End Date Franklyn Cole MD [address] [place] [address] PCP - General 10/17/24 documented as of this encounter
--- OUTSIDE RECORDS SUMMARY | 2025-03-21 11:35 | XMS_ITS | Clinical Summary ---
Author Organization Healthcare Address [address] [place] [address] Care Team Providers Care Station Operator Name Role Phone Franklyn Cole MD Primary Care Provider [phone] Allergies Active Allergy Reactions Criticality Noted Date Comments Hydrocodone Nausea,Vomiting Low 07/25/2023 Medications ascorbic acid (Vitamin C) 1000 MG tablet Take 1 tablet by mouth 1 time each day. Active Azelastine HCl 0.15 % solution Administer 205.5 mcg into affected nostril(s) twice a day. Active cetirizine (ZyrTEC) 10 MG tablet Take by mouth 2 times a day. Active cholecalciferol (Vitamin D-3) 50 MCG (1999 UT) capsule Take by mouth daily. Active fluticasone (Flonase) 50 MCG/ACT nasal spray nightly. 10/08/19 25 Active furosemide (Lasix) 20 MG tablet Take 1 tablet by mouth daily. As needed 11/21/19 25 Active hydrOXYzine HCl (Atarax) 25 MG tablet Take 1 tablet by mouth nightly. Active ibuprofen 600 MG tablet Take 1 tablet by mouth every 6 hours as needed. 09/09/19 25 Active Magnesium Citrate 100 MG tablet Take 1 tablet by mouth. Every 3 days Active montelukast (Singulair) 10 MG tablet Take 1 tablet by mouth every evening. Active omeprazole (PriLOSEC) [address] capsule Take 1 capsule by mouth 1 time each day. Active ondansetron ODT (Zofran-ODT) 4 MG disintegrating tablet Dissolve 1 tablet on the tongue every 6 hours as needed. 08/14/19 25 Active phentermine (Adipex-P) 37.5 MG tablet Take 1 tablet by mouth daily. Active propranolol (Inderal) 10 MG tablet Take 1 tablet by mouth 3 times a day as needed. 09/23/19 25 Active valACYclovir (Valtrex) 1 g tablet TAKE 1 TABLET BY MOUTH NEEDED DAILY FOR HERPES. 09/11/19 25 Active Vitamin E 670 MG (1000 UT) capsule Take 1,000 Units by mouth 1 time each day. Every 3 days ago Active polyethylene glycol (Miralax) 17 g packet Take 17 g by mouth daily. 30 packet 5 12/03/19 25 025 Active Additional Information Patient not taking.Reported on 02/17/2025 docusate sodium (Colace) 100 MG capsule Take 1 capsule by mouth 2 times a day as needed for constipation. 30 capsule 5 12/03/19 25 Active biotin 1000 MCG tablet Take 1 tablet by mouth daily. Active cyanocobalamin 1000 MCG tablet Take 1 tablet by mouth daily. Active Calcium 200 MG tablet Take by mouth. Every 3 days Active amoxicillin-clavul anate (Augmentin) 875-125 MG tablet Take 1 tablet by mouth 2 times a day. for 10 days to be completed 02/23/2025 for URI 01/21/20 Active methylPREDNISolone (Medrol Dospak) 4 MG tablets follow package directions 01/09/20 25 Active Active Problems Problem Noted Date Diagnosed Date Pelvic pain in female 12/02/2024 Assessment & Plan (12/05/2024 7:34 AM EDT): Orders: Ambulatory referral to Gastroenterology; Future Case Request Operating Room: INJECTION, ONABOTULINUMTOXINA PELVIC FLOOR (100 UNITS) [id number] Levator spasm 12/02/2024 Assessment & Plan (12/05/2024 7:34 AM EDT): Orders: Case Request Operating Room: INJECTION, ONABOTULINUMTOXINA PELVIC FLOOR (100 UNITS) [id number] Encounters Date Type Department Care Team Description 03/06/2025 Telephone Medical Office Building Obstetrics and Gynecology [address], [address] [place] [address] Anya Kramer Appeal Process 03/04/2025 Travel 03/02/2025 Telephone Medical Office Building Obstetrics and Gynecology [address], [address] [place] [address] Benjamin Bender MD 02/12/2025 1:35 PM EDT Anesthesia Event [facility] Operating Room [address] [place] [address] Galo Lawrence MD Neidig, Justin T, CRNA 02/12/2025 11:50 AM EDT - 02/12/2025 2:35 PM EDT Hospital Encounter [facility] Operating Room [address] [place] [address] Benjamin Bender MD Discharge Disposition: Home or Self Care 02/12/2025 Travel 02/05/2025 Travel 01/27/2025 Telephone Medical Office Building Obstetrics and Gynecology [address], [address] [place] [address] Benjamin Bender MD 01/14/2025 1:15 PM EDT Pre-Admission Testing [facility] Anesthesia [address] [place] [address] 01/14/2025 Travel 01/07/2025 Travel from Last 3 Months Family History Medical History Relation Name Comments Alcohol abuse Father Bhavik Asthma Father Bhavik Depression Father Bhavik Drug abuse Father Bhavik Intellectual Disability Father Bhavik Mental illness Father Bhavik Stroke Father Bhavik Cancer Mother Elizabeth Depression Mother Elizabeth Diabetes Mother Elizabeth Drug abuse Mother Elizabeth MRSA Mother Elizabeth Mental illness Mother Elizabeth Obesity Mother Elizabeth Relation Name Status Comments Father Bhavik Alive Mother Elizabeth Alive Social History Tobacco Use Types Packs/Day Years Used Date Smoking Tobacco: Former Cigarettes 1 27.4 1 998 - 12/2024 Passive Smoke Exposure: Never Smokeless Tobacco: Never Tobacco Cessation:Counseling Given: Not Answered Alcohol Use Standard Drinks/Week Comments Yes 0 (1 standard drink = 0.6 oz pur e alcohol) monthly PHQ-2 Answer Date Recorded Patient Health Questionnaire-2 Score 2 12/02/2024 PHQ-9 Answer Date Recorded Patient Health Questionnaire-9 Score 12 12/02/2024 Comments No Sex and Gender Information Value Date Recorded Sex Assigned at Female 12/05/2024 10:11 AM EDT Legal Sex Female 8:40 PM EDT Gender Identity Female 12/05/2024 10:11 AM EDT Sexual Orientation Bisexual 12/05/2024 10 :11 AM EDT Last Filed Vital Signs Vital Sign Reading [...] Mass Index 29.57 02/12/2025 1:20 PM EDT Plan of Treatment Upcoming Encounters Date Type Department Care Team (Latest Contact Info) Description 04/09/2025 10:20 AM EDT Office Visit [facility] Medicine Specialties [address] [place] [address] Griselda Cope APRN, DNP [address] [facility] [address] [place] [address] 04/15/2025 2:10 PM EDT Hospital Encounter [facility] Operating Room [address] [place] [address] Benjamin Bender MD [address] [facility] [address] [place] [address] 04/15/2025 2:10 PM EDT - 04/15/2025 3:45 PM EDT Surgery [facility] Operating Room [address] [place] [address] Benjamin Bender MD [address] [facility] [address] [place] [address] INJECTION, ONABOTULINUMTOXINA (100 Units), [id number] Scheduled Procedures Name Priority Associated Diagnoses Date/Ti me INJECTION, ONABOTULINUMTOXINA Levator spasm 04/15/2025 2:10 PM EDT Health Maintenance Due Date Last Done Comments [facility]-HIV Screening 1985 [facility]-Hepatitis C Screening 1985 [facility]-/Child/Adol SDOH Screenings 1985 [facility]-Varicella Vaccines (1 of 2 - 13+ 2-dose series) 1998 [facility]- SDOH Screenings 2003 [facility]-Adult SDOH Screenings 2003 [facility]-Pap Smear 2006 HPV Vaccines (1 - 3-dose SCDM series) 2012 [facility]-Cervical Cancer Screening 2015 [facility]-HPV/Cotest 2015 [facility]-Hepatitis B Vaccines (2 of 3 - 19+ 3-dose series) 09/03/2023 08/06/2023 [id number] Vaccine (3 - 2023- season) 2024 06/04/2021, 12/11/2020 [facility]-Influenza Vaccine (#1) 03/23/202505/28, 06/06/2019, 06/28/2018, Additional history exists [facility]-Depression Screening 12/02/2025 12/02/2024, 11/20 [facility]-DTaP,Tdap,and Td Vaccines (2 - Td or Tdap) 03/08/2033 03/08/2023 [facility]-Zoster Vaccines (1 of 2) 2035 [facility]-Hepatitis A Vaccines Aged Out 06/28/2018 No longer eligible based on patient's age to complete this topic [facility]-Obesity Intervention Completed 12/02/2024 [facility]-HIB Vaccines Aged Out No longer e ligible based on patient's age to complete this topic [facility]-IPV Vaccines Aged Out No longer e ligible based on patient's age to complete this topic [facility]-Pneumococcal Vaccine: Pediatrics (0 to 5 Years) and At-Risk Patients (6 to 49 Years) Aged Out No longer eligible based on patient's age to complete this topic [facility]-Rotavirus Vaccines Aged Out No lo nger eligible based on patient's age to complete this topic Goals Goal Patient Goal Type Associated Problems Recent Progress Patient-Stated? Author Autogenerat ed Goal Care Plan Autogenerated Problem No Oanh Graves RN Procedures Procedure Name Priority Date/Time Associated Diagnosis Comments POCT , URINE Routine 02/12/2025 1:21 PM EDT POCT GLUCOSE METER UNSOLICITED RESULTS Routine 02/12/2025 1:19 PM EDT from Last 3 Months Results * POCT , URINE (02/12/2025 1:21 PM EDT) POCT Test, Urine Negative Males and Non- Females: Negative 02/12/2025 1:28 PM EDT [facility] Government Affairs Specialist ID Marvin Castro 02/12/2025 1:28 PM EDT [facility] Device ID [id number] 02/12/2025 1:28 PM EDT [facility] Urine Urine specimen obtained by clean catch procedure / Unknown 02/12/2025 1:21 PM EDT 02/12/2025 1:28 PM EDT us Benjamin Bender MD LAB POINT OF CARE TE ST DOCKED DEVICE UNSOLICITED RESULTS Final Result Performing Organization Address City/State/[facility] Co de Phone Number [facility] [address] [place] [address] * POCT glucose meter (02/12/2025 1:19 PM EDT) Pathologist [facility] POCT Glucose 91 74 - 99 mg/dL [...] 02/12/2025 1:20 PM EDT [facility] Government Affairs Specialist ID Marvin Castro 02/12/2025 1:20 PM EDT [facility] Device ID [id number] 02/12/2025 1:20 PM EDT [facility] Specimen Type POC Capillary 02/12/2025 1:20 PM EDT [facility] Blood Capillary blood specimen / Unknown 02/12/2025 1:19 PM EDT 02/12/2025 1:20 PM EDT Benjamin Bender MD LAB POINT OF CARE TE ST DOCKED DEVICE UNSOLICITED RESULTS Final Result [facility] [address] [place] [address] from Last 3 Months Additional Health Concerns Active Problems Noted Date Diagnosed Date Autogenerated Problem 03/06/2025 Insurance [facility] MEDICA[facility] Care Teams Station Operator Relationship Specialty Start Date End Date Franklyn Cole MD [address] [place] [address] PCP - General 10/17/24
--- OUTSIDE RECORDS SUMMARY | 2025-03-21 11:35 | XMS_ITS | Encounter Summary ---
Author Organization Healthcare Address [address] [place] [address] Care Team Providers Care Morgue Librarian Name Role Phone Franklyn Cole MD Primary Care Provider [phone] Encounter Details Date Type Department Care Team (Latest Contact Info) Description 02/12/2025 Travel Social History Tobacco Use Types Packs/Day [...] Month) No 025 1:12 PM EDT Arelis Sheridan, RN 2. Non-Specific Active Suici viry Thoughts (Past 1 Month) No 02/12/2025 1:12 PM EDT Kelvin Sheridan RN 6. Suicidal Behavior (Lifetime) No 1:12 PM EDT Arelis Sheridan RN documented as of this encounter Plan of Treatment Upcoming Encounters Date Type Department Care Team (Latest Contact Info) Description 04/09/2025 10:20 AM EDT Office Visit [facility] Medicine Specialties [address] [place] [address] Griselda Cope APRN, DNP [address] [facility] [address] [place] [address] 04/15/2025 2:10 PM EDT Hospital Encounter [facility] Operating Room [address] [place] [address] Benjamin Bender MD [address] [facility] [address] [place] [address] 04/15/2025 2:10 PM EDT - 04/15/2025 3:45 PM EDT Surgery [facility] Operating Room [address] [place] [address] Benjamin Bender MD [address] [facility] [address] [place] [address] INJECTION, ONABOTULINUMTOXINA (100 Units), [id number] [...] documented as of this encounter Care Teams Morgue Librarian Relationship Specialty Start Date End Date Franklyn Cole MD [address] [place], [place] [id number] PCP - General 10/17/24 documented as of this encounter
--- OUTSIDE RECORDS SUMMARY | 2025-03-21 11:35 | XMS_ITS | Encounter Summary ---
Author Organization Healthcare Address [address] [place] [address] Care Team Providers Care Legal Associate Name Role Phone Franklyn Cole MD Primary Care Provider [phone] Reason for Visit * Reason Onset Date Comments Appeal Process 03/06/2025 Encounter Details Date Type Department Care Team ([facility] Contact Info) Description 03/06/2025 Telephone Medical Office Building Obstetrics and Gynecology [address] [facility] [address] [place] [address] Anya Kramer Appeal Process Social History Tobacco Use Types Packs/Day Years Used Date Smoking Tobacco: Former Cigarettes 1 27.4 1 998 - 12/2024 Passive Smoke Exposure: Never Smokeless Tobacco: Never Alcohol Use Standard Drinks/Week Comments Yes 0 [...] encounter Miscellaneous Notes * Telephone Encounter - Anya Kramer - 03/06/2025 1:47 PM EDT Patient had been contacted and informed peer to peer review completed by Isela Ram had been denied by her insurance regarding surgical intervention. Patient informed an appeal can be completed, butmay require some participation on her end per Isela Ram APRN. Patient informed me she wouldl hedy move forward. As of today, patient has been contacted by surgical services manager regarding her next steps regarding this process. MARITZA Joyner documented in this encounter Plan of Treatment Upcoming Encounters Date Type Department Care Team (Latest Contact Info) Description 04/09/2025 10:20 AM EDT Office Visit [facility] Medicine Specialties [address] [place] [address] Griselda Cope APRN, DNP [address] [place] [address] 04/15/2025 2:10 PM EDT Hospital Encounter [facility] S Operating Room [address] [place] [address] Benjamin Bender MD [address] [facility] [address] [place] [address] 04/15/2025 2:10 PM EDT - 04/15/2025 3:45 PM EDT Surgery [facility] Operating Room [address] [place] [address] Benjamin Bender MD [address] [facility] [address] [place] [address] INJECTION, ONABOTULINUMTOXINA (100 Units), [id number] [...] Noted Time PHQ-9 Depression Total Score: 12 05/13/2 025 11:24 AM EDT A Body Mass Index follow-up plan has been documented for the patient 12/05/2024 7:34 AM EDT documented as of this encounter Care Teams Legal Associate Relationship Specialty Start Date End Date Franklyn Cole MD [facility] [place] [address] PCP - General 10/17/24 documented as of this encounter
--- OUTSIDE RECORDS SUMMARY | 2025-03-21 11:35 | XMS_ITS | Encounter Summary ---
Author Organization Healthcare Address [address] [place] [address] Care Team Providers Care Personal Caregiver Name Role Phone Franklyn Cole MD Primary Care Provider [phone] Encounter Details Date Type Department Care Team (Latest Contact Info) Description 03/04/2025 Travel Social History Tobacco Use Types Packs/Day [...] Description 04/09/2025 10:20 AM EDT Office Visit [facility] Medicine Specialties [address] [place] [address] Griselda Cope, DEYSI, DNP [address] [place] [address] 04/15/2025 2:10 PM EDT Hospital Encounter [facility] Operating [address] [facility] [place] [address] Benjamin Bender MD [address] [facility] [address] [place] [address] 04/15/2025 2:10 PM EDT - 04/15/2025 3:45 PM EDT Surgery [facility] Operating Room [address] [place] [address] Benjamin Bender MD [address] [address] INJECTION, ONABOTULINUMTOXINA (100 Units), [id number] Scheduled [...] documented as of this encounter Care Teams Personal Caregiver Relationship Specialty Start Date End Date Franklyn Cole MD [facility] [place] [address] PCP - General 10/17/24 documented as of this encounter
--- OUTSIDE RECORDS SUMMARY | 2025-03-21 11:35 | XMS_ITS | Encounter Summary ---
Author Organization Healthcare Address [address] [place] [address] Care Team Providers Care Rotor Blade Installer Name Role Phone Franklyn oCle MD Primary Care Provider [phone] Encounter Details Date Type Department Care Team ([facility] Contact Info) Description 03/02/2025 Telephone Medical Office Building Obstetrics and Gynecology [address] [place] [address] Benjamin Bender MD [address] [facility] [address] [place] [address] Social History Tobacco Use Types [...] encounter Miscellaneous Notes * Telephone Encounter - Lisa Baker - 03/10/2025 10:30 AM EDT Contacted patient to confirm that I did receive her signed insurance authorization form. I asked ifpatient would be comfortable with the appeals team completing the rest of the form for her and she stated she'd appreciated if they completed the form. Patient stated that [employer] is her primary insurance and [employer] is her secondary and should sweet pickled fruit maker anything that [employer] denies. Patient also stated that a tour sales representative from her insurance may reach out to us to discuss things more in detail to hopefully get the procedure approved. Patient asked if the procedure gets approved if her surgery date could be moved up. The signed insurance authorization form has been sent to Jaky to send to the appeals team. * Telephone Encounter - Lisa Baker - 03/06/2025 12:00 PM EDT Patient has been contacted and strongly encouraged that her procedure be rescheduled. Patient has been rescheduled to 04/15/2025. I emailed the patient the attached Designation of Representation Form to sign and send back to me to submit. Patient was advised that this appeal will likely not be completed by her surgery date 03/11 in which we went ahead and rescheduled the procedure due to advising patient that Dr. Bender will be leaving the organization end of March. Also advised patient that if she'd like to proceed with the surgery on 03/11 prior to the appeal being completed, she may be considered self-pay. * Telephone Encounter - Lisa Baker - 03/02/2025 9:45 AM EDT Contacted patient to advise that fady denied her procedure and that the secondary medicaid will deny as well based on the denial of the primary insurance. Patient was advised that we'd know more once the peer to peer is turn to possibly overturn the denial. documented in this encounter Plan of Treatment Upcoming Encounters Date Type Department Care Team (Latest Contact Info) Description 04/09/2025 10:20 AM EDT Office Visit [facility] Medicine Specialties [address] [place] [address] Griselda Cope, DOVETAILER, DNP [address] [facility] [address] [place] [address] 04/15/2025 2:10 PM EDT Hospital Encounter [facility] Operating Room [address] [place] [address] Benjamin Bender MD [address] [facility] [address] [place] [address] 04/15/2025 2:10 PM EDT - 04/15/2025 3:45 PM EDT Surgery [facility] Operating Room [address] [place] [address] Benjamin Bender MD [address] [facility] [address] [place] [address] INJECTION, ONABOTULINUMTOXINA (100 Units), [id number] Scheduled Procedures Name Priority Associated Diagnoses Date/Ti me INJECTION, ONABOTULINUMTOXINA Levator spasm 04/15/2025 2:10 PM EDT documented as of this encounter Goals Goal Patient Goal Type Associated Problems Recent Progress Patient-Stated? Author Autogenerat ed Goal Care Plan Autogenerated Problem No Oanh Graves, RN documented as of this encounter Visit Diagnoses Not on filedocumented in this encounter Additional Health Concerns Active Problems Noted Date Diagnosed Date Autogenerated Problem 03/06/2025 Assessment Noted Time PHQ-9 Depression Total Score: 12 025 11:24 AM EDT A Body Mass Index follow-up plan has been documented for the patient 12/05/2024 7:34 AM EDT documented as of this encounter Care Teams Rotor Blade Installer Relationship Specialty Start Date End Date Franklyn Cole MD [address] [place] [address] PCP - General 10/17/24 documented as of this encounter
[2025-03-21 11:45] LABS: Bilirubin,Urine Negative (Negative); Color,Urine YELLOW (Yellow); Glucose,Urine (UA) Negative (Negative); Ketones,Urine Negative (Negative); Leukocyte Esterase,Urine 2+ (Negative); PH,Urine 7.5 (5.0-8.5); Protein,Urine Negative (Negative); Specific Gravity, Urine 1.010 (1.005-1.030); Urobilinogen,Urine 0.2 EU/dl (0.2)
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
[2025-03-21 12:20] VITALS: BP 118/85; PULSE 85; O2SAT 98
[2025-03-21 12:22] LABS: Bacteria,Urine Trace /lpf; Squamous Epithelial Cell,Urine Occasional #/hpf (0-5)
[2025-03-21 12:30] VITALS: BP 122/83; PULSE 79; O2SAT 100
[2025-03-21 12:34] LABS: Hematocrit 41.3 % (37.0-47.0); Hemoglobin 14.4 g/dL (12.2-16.2); Immature Granulocytes % 0.6 %; Mean Corpuscular HGB Conc 34.9 g/dL (31.8-35.4); Mean Corpuscular Hemoglobin 30.4 pg (27.0-31.2); Mean Corpuscular Volume 87.1 fl (81-99); Nucleated Red Blood Cells % 0 %; Platelet Count 370 K/mm3 (142-424); Red Blood Count 4.74 M/mm3 (4.20-5.40); Red Cell Distribution Width-SD 40.8 fL; White Blood Count 10.0 K/mm3 (4.8-10.8)
[2025-03-21 12:51] LABS: Alanine Aminotransferase 24 U/L (12-78); Albumin Level 4.5 g/dl (3.5-5.0); Albumin/Globulin Ratio 1.3 (1.1-1.8); Alkaline Phosphatase 63 U/L (38-126); Anion Gap 11.6 mEq/L (5-15); Aspartate Amino Transferase 25 U/L (14-36); Bilirubin,Total 0.5 mg/dl (0.2-1.3); Blood Urea Nitrogen 11 mg/dl (7-17); Calcium 9.4 mg/dl (8.4-10.2); Carbon Dioxide 29 mmol/L (22.0-30.0); Chloride 103 mmol/L (98-107); Creatinine Clearance Estimated 162 mL/min (50-200); Creatinine,Serum 0.60 mg/dl (0.52-1.04); Estimated Glomerular Filt Rate 111 ml/min (>60); GFR (African American) 135 ML/MIN (>60); Globulin 3.5 g/dL (1.3-3.2); Glucose 86 mg/dl (74-100); Lipase 27 U/L (23-300); Potassium 4.6 mmoL/L (3.5-5.1); Sodium 139 mmol/L (136-145); Total Protein,Serum 8.0 g/dl (6.3-8.2)
[2025-03-21] MEDS: LIDOCAINE 1% 5ML PF VIAL IM (13:33)
[2025-03-21 13:44] LABS: Urine Pregnancy, HCG Qual. Negative (Negative)
[2025-03-21 13:52] VITALS: BP 130/99; PULSE 76; RESP 16; TEMP 36.7; O2SAT 100
--- NOTE | 2025-03-23 08:13 | PC.NURSE ---
Urine culture results reviewed by Dr. Alberto. No new orders received.
== END 2025-03-21 13:53 | disposition home or self-care (01) ==
PROVIDERS: Physician Assistant; Emergency Provider Student in an Organized Health Care Education/Training Program; PCP Family Medicine
DX: R10.2 Pelvic and perineal pain (principal); N89.8 Other specified noninflammatory disorders of vagina; E89.0 Postprocedural hypothyroidism; F41.1 Generalized anxiety disorder; F33.1 Major depressive disorder, recurrent, moderate
CPT/HCPCS: 80053; 81001; 81025; 83690; 85025; 87086; 87220; 87491; 87563; 87591; 87661; 96372; 99284; J0696; J2003

== ENCOUNTER 2025-04-01 09:41 | Outpatient (CLI) | payer BC, MEDICAID, SELFPAY ==
--- OUTSIDE RECORDS SUMMARY | 2025-02-12 11:50 | XMS_ITS | Encounter Summary ---
Author Organization Healthcare Address [address] [place] [address] Care Team Providers Care Full Decator Operator Name Role Phone Franklyn Cole MD Primary Care Provider [phone] Reason for Visit * Auth/Cert (Routine) Specialty Diagnoses / Procedures Referred By Candis t Referred To Contact Diagnoses Pelvic pain in female Levator spasm Pelvic pain in female [R10.2] Levator spasm [M62.838] Procedures [place] CHEMODENERVATION ONE EXTREMITY 1-4 MUSCLE INJECTION, ONABOTULINUMTOXINA PELVIC FLOOR (100 UNITS) Benjamin Bender MD [address] [address] Phone: tel: fax: [facility] Operating Room [address] [place] [address] Phone: tel: Referral ID Status Reason Start Date Expiration Date Visits Re quested Visits Authorized [id number] 1 1 Encounter Details Date Type Department Care Team (Latest Contact Info) Description 02/12/2025 11:50 AM EDT - 02/12/2025 2:35 PM EDT Hospital Encounter [facility] Operating Room [address] [place] [address] Benjamin Bender MD [address] [address] Discharge Disposition: Home or Self Care Social History Tobacco Use Types Packs/Day Years Used Date Smoking Tobacco: Never Passive Smoke Exposure: Never Smokeless Tobacco: Never Tobacco Cessation:Counseling Given: No Alcohol Use Standard Drinks/Week Comments Never 0 (1 standard drink = 0.6 oz pur e alcohol) PHQ-2 Answer Date Recorded Patient Health Questionnaire-2 Score 2 12/02/2024 PHQ-9 Answer Date Recorded Patient Health Questionnaire-9 Score 12 12/02/2024 Comments No Sex and Gender Information Value Date Recorded Sex Assigned at Female 12/05/2024 10:11 AM EDT Legal Sex Female 8:40 PM EDT Gender Identity Female 12/05/2024 10:11 AM EDT Sexual Orientation Bisexual 12/05/2024 10 :11 AM EDT documented as of this encounter Last Filed Vital Signs Vital Sign Reading Time Taken Comments Blood Pressure 126/82 02/12/2025 1:20 PM EDT Pulse 78 02/12/2025 1:20 PM EDT Temperature 36.3 C (97.4 F) 02/12/2025 1:41 PM EDT Respiratory Rate 16 02/12/2025 1:20 PM EDT Oxygen Saturation 98% 02/12/2025 1:20 PM EDT Inhaled Oxygen Concentration - - Weight 83.1 kg (183 lb 3.2 oz) 02/12/2025 1:20 P M EDT Height 167.6 cm (5' 6 ) 02/12/2025 1:20 PM EDT Body Mass Index 29.57 02/12/2025 1:20 PM EDT documented in this encounter Functional Status * Calculated C-SSRS Risk Score (Lifetime/Recent) Answer Date of Assessment Author No Risk Indicated 02/12/2025 1:12 PM EDT Arelis Sheridan RN * Question Answer Date of Assessment Author 1. Wish to be (Past 1 Month) No 025 1:12 PM EDT Arelis Sheridan RN 2. Non-Specific Active Suici viry Thoughts (Past 1 Month) No 02/12/2025 1:12 PM EDT Kelvin Sheridan RN 6. Suicidal Behavior (Lifetime) No 1:12 PM EDT Arelis Sheridan RN documented as of this encounter Medications at Time of Discharge amoxicillin-clavula felix (Augmentin) 875-125 MG tablet Take 1 tablet by mouth 2 times a day. for 10 days to be completed 02/23/2025 for URI 01/20/2025 ascorbic acid (Vitamin C) 1000 MG tablet Take 1 tablet by mouth 1 time each day. Azelastine HCl 0.15 % solution Administer 205.5 mcg into affected nostril(s) twice a day. biotin 1000 MCG tablet Take 1 tablet by mouth daily. Calcium 200 MG tablet Take by mouth. Every 3 days cetirizine (ZyrTEC) 10 MG tablet Take by mouth 2 times a day. cholecalciferol (Vitamin D-3) 50 MCG (2000 UT) capsule Take by mouth daily. cyanocobalamin 1000 MCG tablet Take 1 tablet by mouth daily. docusate sodium (Colace) 100 MG capsule Take 1 capsule by mouth 2 times a day as needed for constipation. 30 capsule 5 12/02/2024 fluticasone (Flonase) 50 MCG/ACT nasal spray nightly. 10/07/2024 furosemide (Lasix) 20 MG tablet Take 1 tablet by mouth daily. As needed 11/20/2024 hydrOXYzine HCl (Atarax) 25 MG tablet Take 1 tablet by mouth 3 times a day as needed. ibuprofen 600 MG tablet Take 1 tablet by mouth every 6 hours as needed. 09/09/2024 Magnesium Citrate 100 MG tablet Take 1 tablet by mouth. Every 3 days methylPREDNISolone (Medrol Dospak) 4 MG tablets follow package directions 01/08/2025 montelukast (Singulair) 10 MG tablet Take 1 tablet by mouth every evening. omeprazole (PriLOSEC) [address] capsule Take 1 capsule by mouth 1 time each day. ondansetron ODT (Zofran-ODT) 4 MG disintegrating tablet Dissolve 1 tablet on the tongue every 6 hours as needed. 08/14/2024 phentermine (Adipex-P) 37.5 MG tablet Take 1 tablet by mouth daily. polyethylene glycol (Miralax) 17 g packet Take 17 g by mouth daily. 30 packet 5 12/02/2024 propranolol (Inderal) 10 MG tablet Take 1 tablet by mouth 3 times a day as needed. 09/22/2024 valACYclovir (Valtrex) 1 g tablet TAKE 1 TABLET BY MOUTH NEEDED DAILY FOR HERPES. 09/11/2024 Vitamin E 670 MG (1000 UT) capsule Take 1,000 Units by mouth 1 time each day. Every 3 days documented as of this encounter Miscellaneous Notes * Perioperative Nursing Note - Arelis Sheridan RN - 02/12/2025 2:35 PM EDT Surgery cancelled due to patient taking phentermine 02/11/25- risks were discussed with pt by . Dr. Bender's office to notify pt of new surgery date/time and pt instructed to hold phentermine 5-7 days pre op- pt verbalized understanding. * H&P - Griselda Figueredo MD - 02/12/2025 1:31 PM EDT Gynecology History and Physical Patient Name: Cameron Rowland : 1985 Date of Admission: 02/12/25 Chief Concern: here for my scheduled procedure Subjective Subjective History of Present Illness: Cameron Rowland is a 39 y.o. female with history of pelvic organ prolapse and pelvic pain who presents for scheduled botulinum toxin injections in the pelvic floor. Patient is s/p anterior-posterior repair and placement of midurethral sling in July 2024. Since then patient has continued to have pelvic pain. Reports a baseline constant pain that has episodic flares of intensity that can last from 2 minutes to 3 days. She is also s/p a course of pelvic floor physical therapy over the course of a year with mixed results. Has also tried vaginal Valium suppositories also with mixed results. OBGYN History: OB History No obstetric history on file. Past Medical History: Past Medical History[1] Past Surgical History: Surgical History[2] Family History: Family History[3] Social History: Social History[4] Medications: Current Outpatient Medications Medication Instructions ascorbic acid (VITAMIN C) 1,000 mg, ZZ Daily RT Azelastine HCl 205.5 mcg, 2 times daily biotin 1,000 mcg, Daily Calcium 200 MG tablet Take by mouth. cetirizine (ZyrTEC) 10 MG tablet 2 times daily cholecalciferol (Vitamin D-3) 50 MCG (1999 UT) capsule Take by mouth. cyanocobalamin (VITAMIN B-12) 1,000 mcg, Daily docusate sodium (COLACE) 100 mg, Oral, 2 times daily PRN fluticasone (Flonase) 50 MCG/ACT nasal spray SHAKE LIQUID AND USE 1 SPRAY IN EACH NOSTRIL DAILY furosemide (LASIX) 20 mg, Daily hydrOXYzine HCl (ATARAX) 25 mg, ZZ Daily RT ibuprofen 600 mg, Every 6 hours PRN Magnesium Citrate 100 MG tablet Take by mouth. montelukast (SINGULAIR) 10 mg, Every evening omeprazole (PRILOSEC) 40 mg, ZZ Daily RT ondansetron ODT (ZOFRAN-ODT) 4 mg, Every 6 hours PRN phentermine (ADIPEX-P) 37.5 mg, Daily polyethylene glycol (MIRALAX) 17 g, Oral, Daily propranolol (INDERAL) 10 mg, 3 times daily PRN valACYclovir (Valtrex) 1 g tablet TAKE 1 TABLET BY MOUTH NEEDED DAILY FOR HERPES. Vitamin E 1,000 Units, ZZ Daily RT Allergies: Allergies[5] Review of Systems: Negative except as per HPI. Objective Objective Vital Signs: There were no vitals taken for this visit. There is no height or weight on file to calculate BMI. Weight: Wt Readings from Last 3 Encounters: 12/02/24 88.4 kg (194 lb 14.2 oz) Physical Exam Constitutional: Appearance: Normal appearance. Cardiovascular: Normal rate. Pulmonary: Effort: Pulmonary effort is normal. Abdominal: General: Abdomen is flat. Palpations: Abdomen is soft. Skin: General: Skin is warm and dry. Neurological: Mental Status: She is alert. Psychiatric: Mood and Affect: Mood normal. Behavior: Behavior normal. Assessment/Plan Assessment / Plan Cameron Rowland is a 39 y.o. with history of pelvic pain who presents for scheduled pelvic floor botulinum injections. # Chronic Pelvic Pain - History of pelvic pain for the last 3 years - Patient s/p anterior-posterior repair + sling placement in July 2024 - Trialed pelvic floor physical therapy and vaginal Valium - Exam during clinic visit in November suggestive of levator spasms - Will proceed with pelvic floor botulinum toxin injections in the OR Dispo: to OR for injections. Please message on-call [facility] resident via [employer] Secure Chat or page [phone] (M-F 6a-6p) or [phone] (nights/weekends) for questions or concerns regarding this patient's care. Griselda Figueredo MD PGY3 Obstetrics and Gynecology [1] Past Medical History: Diagnosis Date Abnormal Pap smear of cervix Acid reflux Anemia Anxiety Bowel dysfunction Chronic pain disorder Depression Dysplasia of cervix HPV (human papilloma virus) infection Irritable bowel syndrome Constipation and diarrhea Pelvic pain PTSD (post-traumatic stress disorder) Spastic pelvic floor syndrome Thyroid cancer (CMS/HCC) Urinary tract infection Urogenital trichomoniasis Varicella [2] Past Surgical History: Procedure Laterality Date ABLATION, VAGINAL LESION BLADDER SURGERY posterior/anterior repair CERVICAL BIOPSY W/ LOOP ELECTRODE EXCISION SECTION, CLASSIC SECTION, LOW TRANSVERSE DILATION AND CURETTAGE OF UTERUS ENDOMETRIAL ABLATION OTHER SURGICAL HISTORY THROAT SURGERY THYROIDECTOMY, PARTIAL TONSILLECTOMY TUBAL LIGATION TYMPANOSTOMY TUBE PLACEMENT [3] Family History Problem Relation Name Age of Onset Drug abuse Mother Elizabeth Depression Mother Elizabeth Cancer Mother Elizabeth Diabetes Mother Elizabeth Mental illness Mother Elizabeth Obesity Mother Elizabeth MRSA Mother Elizabeth Alcohol abuse Father Bhavik Drug abuse Father Bhavik Depression Father Bhavik Intellectual Disability Father Bhavik Stroke Father Bhavik Asthma Father Bhavik Mental illness Father Bhavik [4] Social History Socioeconomic History Marital status: Tobacco Use Smoking status: Never Passive exposure: Never Smokeless tobacco: Never Vaping Use Vaping status: Every Day Substances: Nicotine, Flavoring Devices: Disposable, Pre-filled or refillable cartridge, Pre-filled pod Substance and Sexual Activity Alcohol use: Never Drug use: Never [5] Allergies Allergen Reactions Hydrocodone Nausea and Vomiting Cosigned by Benjamin Bender MD at 02/12/2025 3:03 PM EDT Associated attestation - Benjamin Bender MD - 02/12/2025 3:03 PM EDT I saw and evaluated the patient. I discussed the case with the resident and agree with the findingsand plan as documented. documented in this encounter Plan of Treatment Upcoming Encounters Date Type Department Care Team (Latest Contact Info) Description 04/09/2025 10:20 AM EDT Office Visit [place] [facility] [address] [place] [address] Griselda Cope, EDI SPECIALIST, DNP [address] [facility] [address] [place] [address] 04/15/2025 11:40 AM EDT Hospital Encounter [facility] Operating Room [address] [place] [address] Benjamin Bender MD [address] [facility] [address] [place] [address] 04/15/2025 11:40 AM EDT - 04/15/2025 1:15 PM EDT Surgery [facility] Operating Room [address] [place] [address] Benjamin Bender MD [address] [facility] [address] [place] [address] INJECTION, ONABOTULINUMTOXINA (100 Units), [id number] Scheduled Procedures Name Priority Associated Diagnoses Date/Ti me INJECTION, ONABOTULINUMTOXINA Levator spasm 04/15/2025 11:40 AM EDT documented as of this encounter Procedures Procedure Name Priority Date/Time Associated Diagnosis Comments POCT , URINE Routine 02/12/2025 1:21 PM EDT POCT GLUCOSE METER UNSOLICITED RESULTS Routine 02/12/2025 1:19 PM EDT documented in this encounter Results * POCT , URINE (02/12/2025 1:21 PM EDT) POCT Test, Urine Negative Males and Non- Females: Negative 02/12/2025 1:28 PM EDT [facility] Director Housekeeping ID Marvin Castro 02/12/2025 1:28 PM EDT [facility] Device ID [id number] 02/12/2025 1:28 PM EDT [facility] Urine Urine specimen obtained by clean catch procedure / Unknown 02/12/2025 1:21 PM EDT 02/12/2025 1:28 PM EDT Benjamin Bender MD LAB POINT OF CARE TE ST DOCKED DEVICE UNSOLICITED RESULTS Final Result Performing Organization Address [facility] de Phone Number [facility] [address] [place] [address] * POCT glucose meter (02/12/2025 1:19 PM EDT) POCT Glucose 91 74 - 99 mg/dL 02/12/2025 1:20 PM EDT [facility] Comment:Accuracy of a glucos e result obtained from a capillary whole blood specimen relies upon adequate, non-compromised capillary blood flow. If the capillary glucose result is not consistent with the patient's clinical signs and symptoms, glucose testing should be repeated with either an arterial or venous sample on the glucometer or sent to the main labortory for testing. Comment 02/12/2025 1:20 PM EDT [facility] Director Housekeeping ID Marvin Castro 02/12/2025 1:20 PM EDT [facility] Device ID [id number] 02/12/2025 1:20 PM EDT [facility] Specimen Type POC Capillary 02/12/2025 1:20 PM EDT [facility] Blood Capillary blood specimen / Unknown 02/12/2025 1:19 PM EDT 02/12/2025 1:20 PM EDT Benjamin Bender MD LAB POINT OF CARE TE ST DOCKED DEVICE UNSOLICITED RESULTS Final Result Performing Organization Address [facility] de Phone Number [facility] [address] [place] [address] documented in this encounter Visit Diagnoses Not on filedocumented in this encounter Administered Medications Inactive Administered Medications - up to 3 most recent administrations Medication Order MAR Action Action Date Dose Rate Site lactated Ringer's infusion 20 mL/hr, Intravenous, Continuous, Starting on Lena 02/12/25 at 1400, Until Lena 02/12/25 at 1659, Routine New Bag 02/12/2025 1:34 PM EDT 20 mL/hr 20 mL/hr Povidone-Iodine 5 % swab solution 1 Application Nasal, Once, 1 dose, On Lena 02/12/25 at 1400, Routine Given 02/12/2025 1:33 PM EDT 1 Application sodium chloride 0.9 % flush 10 mL 10 mL, Intravenous, Every 12 hours, First dose on Lena 02/12/25 at 1400, Until Discontinued, Routine, Holding - Preprocedure sodium chloride 0.9 % flush 10 mL 10 mL, Intravenous, As needed, Starting on Lena 02/12/25 at 1307, Until Lena 02/12/25 at 1659, Routine, Holding - Preprocedure, line care documented in this encounter Active and Recently Administered Medications Times are shown in EDT. Scheduled Medication Order 02/10/2025 02/11/2025 02/12/2025 ceFAZolin (Ancef) injection 2 g 2 g, Intravenous, Once, 1 dose, On Lena 02/12/25 at 1400, Routine, Anesthesia Intraprocedure 1400 (Canceled Entry - Provider: Automatic Discharge Provider - Comment: Automatically canceled at discontinue of medication order) onabotulinumtoxinA (Botox) injection 100 Units 100 Units, Intramuscular, Once, 1 dose, On Lena 02/12/25 at 0745, Routine 0745 (Canceled Entry - Provider: Automatic Discharge Provider - Comment: Automatically canceled at discontinue of medication order) Povidone-Iodine 5 % swab solution 1 Application (COMPLETED) Nasal, Once, 1 dose, On Lena 02/12/25 at 1400, Routine 1333 (Given - Provid er: Arelis Sheridan RN) sodium chloride 0.9 % flush 10 mL(Linked Group 1) 10 mL, Intravenous, Every 12 hours, First dose on Lena 02/12/25 at 1400, Until Discontinued, Routine, Holding - Preprocedure 1400 (Canceled Entry - Provider: Automatic Discharge Provider - Comment: Automatically canceled at discontinue of medication order) Continuous Medication Order 02/10/2025 02/11/2025 02/12/2025 lactated Ringer's infusion 20 mL/hr, Intravenous, Continuous, Starting on Lena 02/12/25 at 1400, Until Lena 02/12/25 at 1659, Routine 1334 (New Bag - Prov ider: Arelis Sheridan RN) PRN Medication Order 02/10/2025 02/11/2025 02/12/2025 sodium chloride 0.9 % flush 10 mL(Linked Group 1) 10 mL, Intravenous, As needed, Starting on Lena 02/12/25 at 1307, Until Lena 02/12/25 at 1659, Routine, Holding - Preprocedure, line care Linked Groups Order Group 1: Insert peripheral IV (CANCELED) Once, On Lena 02/12/25 at 1308, For 1 occurrence, Holding - Preprocedure And Saline lock IV (CANCELED) Once, On Lena 02/12/25 at 1308, For 1 occurrence, Holding - Preprocedure And sodium chloride 0.9 % flush 10 mLJump to med 10 mL, Intravenous, Every 12 hours, First dose on Lena 02/12/25 at 1400, Until Discontinued, Routine, Holding - Preprocedure And sodium chloride 0.9 % flush 10 mLJump to med 10 mL, Intravenous, As needed, Starting on Lena 02/12/25 at 1307, Until Lena 02/12/25 at 1659, Routine, Holding - Preprocedure, line care documented in this encounter Additional Health Concerns Assessment Noted Time PHQ-9 Depression Total Score: 12 025 11:24 AM EDT A Body Mass Index follow-up plan has been documented for the patient 12/05/2024 7:34 AM EDT documented as of this encounter Care Teams Full Decator Operator Relationship Specialty Start Date End Date Franklyn Cole MD [address] [place] [address] PCP - General 10/17/24 documented as of this encounter
--- OUTSIDE RECORDS SUMMARY | 2025-02-12 13:35 | XMS_ITS | Encounter Summary ---
Author Organization Healthcare Address [address] [place] [address] Care Team Providers Care Wood And Hardware Outfitter Name Role Phone Franklyn Cole MD Primary Care Provider [phone] Reason for Visit * Auth/Cert (Routine) Specialty Diagnoses / Procedures Referred By Candis echevarria Referred To Contact Diagnoses Pelvic pain in female Levator spasm Pelvic pain in female [R10.2] Levator spasm [M62.838] Procedures MI CHEMODENERVATION ONE EXTREMITY 1-4 MUSCLE INJECTION, ONABOTULINUMTOXINA PELVIC FLOOR (100 UNITS) Benjamin Bender MD [address] [facility] [address] [place] [address] Phone: tel: fax: [facility] Operating Room [address] [place] [address] Phone: tel: Referral ID Status Reason Start Date Expiration Date Visits Re quested Visits Authorized [id number] 1 1 Encounter Details Date Type Department Care Team (Late st Contact Info) Description 02/12/2025 1:35 PM EDT Anesthesia Event [facility] Operating Room [address] [place] [address] Galo Lawrence MD [address] [place] [address] Gwyn Marrufo CRNA [address] [place] [address] Anesthesia Record Procedure Summary Procedure Name Responsible Anesthesiologist Anesthesia Start Time Anesthesia Stop Time INJECTION, ONABOTULINUMTOXINA PELVIC FLOOR (100 UNITS) Events Date Time Event Comment 02/12/2025 1326 1400 Canceled in Pre Meds * Agents No agents on file. * Blood No blood administrations on file. Lines, Drains, and Airways No LDAs on file. documented in this encounter Social History Tobacco Use Types Packs/Day Years Used Date Smoking Tobacco: Never Passive Smoke Exposure: Never Smokeless Tobacco: Never Alcohol Use Standard Drinks/Week Comments Never 0 [...] AM EDT documented as of this encounter Functional Status * Calculated C-SSRS [...] Sheridan RN documented as of this encounter Miscellaneous Notes * Anesthesia Preprocedure Evaluation - Galo Lawrence MD - 02/12/2025 1:26 PM EDT Images from the original note were not included. Anesthesiologist: Galo Lawrence MD LEASE PURCHASE DRIVER: Gwyn Marrufo CRNA Patient: CAMERON Rowland HPI Cameron Rowland is a 39 y.o. female with body mass index is unknown because there is no height or weight on file. who presents with No Principal Problem: There is no principal problem currently on the Problem List. Please update the Problem List and refresh., now for INJECTION, ONABOTULINUMTOXINA PELVIC FLOOR (100 UNITS) (N/A) Procedure Information Date/Time: 02/12/25 1335 Procedure: INJECTION, ONABOTULINUMTOXINA PELVIC FLOOR (100 UNITS) - Virtual PAT. I can consent inthe holding area Location: [address] [place] [address] OR Surgeons: Benjamin Bender MD Relevant Problems No relevant active problems ALLERGIES Allergies[1] NPO STATUS Date of Last Liquid: 02/12/25 Time of Last Liquid: 929 Date of Last Solid: 02/11/25 Time of Last Solid: 2099 Last Intake Type: Clear fluids Time of Last Void: 131 Past Medical History[2] AIRWAY HISTORY Airway Detailed Review Displaying the 20 most recent records Date Difficult Airway Blade Size ETT Size C-L Class Final Type Intubation Method 08/14/24 - - - - - - MEDICATIONS Outpatient Current Outpatient Medications Medication Instructions ascorbic acid (VITAMIN C) 1,000 mg, ZZ Daily RT Azelastine HCl 205.5 mcg, 2 times daily biotin 1,000 mcg, Daily Calcium 200 MG tablet Take by mouth. cetirizine (ZyrTEC) 10 MG tablet 2 times daily cholecalciferol (Vitamin D-3) 50 MCG (1999) capsule Take by mouth. cyanocobalamin (VITAMIN B-12) [...] Vitamin E 1,000 Units, ZZ Daily RT Scheduled Current Scheduled Medications[3] PRNs Current PRN Medications[4] SURGICAL HX: Surgical History[5] SOCIAL HX: Social History[6] OBJECTIVE DATA LABS No results found for: WBC , HGB , HCT , MCV , PLT No results found for: CALCIUM , BUN , CREATININE , BCR , NA , K , CL , CO2 , AG , CA Type and Screen No results found for: ABO No results found for: HGBA1C Lab Results Component Value Date PGLU 91 02/12/2025 ABG No results found for: PHART , BBI8RGO , PO2ART , SO2ART , BEART , IGL5GQO , HCTART , SODIUMART , POTASSIUMART , POCTCL , POCGLU , IONCALART , LACTATE No results found for: PH , PCO2 , PO2 , H0XUGTBB , BASEEXC , HCTSYR , KSYR , CLSYR , GLUSYR , CAION , LACTATE ECHO No echocardiogram results found for the past 12 months PFTs No results found for: HMO8XNE , UYJ0AQXS , FFZ5ISP , FVCPRED BP Readings from Last 5 Encounters: 12/02/24 130/79 Physical Exam Airway Mallampati: II Mouth opening: normal TM distance: >3 FB Neck ROM: full Cardiovascular Rhythm: regular Rate: normal Dental - normal exam Pulmonary Breath sounds clear to auscultation Neurological Oriented: normal to time, normal to place and normal to person Skin Musculoskeletal Extremities Anesthesia Plan ASA 2 Plan was reviewed with: LEASE PURCHASE DRIVER and attending Anesthesia technique(s) discussed with the patient/family: general Anesthesia plan agreed upon was: general Anesthetic plan and risks discussed with patient. ROS Anesthesia: Date of last anesthetic: 08/14/2024 CE OSH POSTERIOR REPAIR (RECTOCELE REPAIR Intraop Airway Placement: Date/Time: 08/14/2024 1:16 PM Induction type: IV Mask size: Standard adult Pre-Oxygenation: Standard Mask ventilation: Easy mask ventilation Technique: Video laryngoscope Laryngoscope blade: Huang Blade size: 3 Grade view: I Airway type: ETT- cuffed Intubation assist devices: Stylet 14fr Airway location: Oral Device size: 7mm X1 attempt No GA issues history of previous anesthesia. Does not have a history of anesthetic complications, obstructive sleep apnea and PONV. Cardiovascular: Does not have angina, CAD, dyspnea, dysrhythmias, hyperlipidemia, murmur, orthopnea, pacemaker, past [place], PVD or syncope. no hypertension: Exercise tolerance is 2 flights of stairs. Respiratory: allergic rhinitis. Patient has no dyspnea.no asthma: no COPD: Has not had an upper respiratory infection in last 30 days. Has not had COVID in the last 30 days. HEENT: Does not have difficulty swallowing, chipped teeth, loose teeth or missing teeth. Neurological: Does not have headaches. no seizures: Did not have a cerebrovascular accident. Musculoskeletal: Does not have arthritis. Does not have cervical spine limited mobility. Integumentary: Negative skin ROS. Gastrointestinal: GERD:Does not have hernia. Does not have cirrhosis. weight loss (78 lb in 2 years intentional). Genitourinary: Does not have chronic renal disease.Does not have renal calculi or renal disease. Hematological/Lymphatic: Does not have anemia. History of no DVT. History of no pulmonary embolism. no history of chemotherapy no history of radiation Does not have HIV, MRSA or tuberculosis. Endocrine/Metabolic: does not have diabetes mellitus. thyroid cancer (s/p partial thyroidectomy). Does not have thyroid disorder. Does not have a historyof chronic steroid use. Does not have gout. [1] Allergies Allergen Reactions Hydrocodone Nausea and Vomiting [2] Past Medical History: Diagnosis Date Abnormal Pap smear of cervix Acid reflux Anemia Anxiety Bowel dysfunction Chronic pain disorder Depression Dysplasia of cervix HPV (human papilloma virus) infection Irritable bowel syndrome Constipation and diarrhea Pelvic pain PTSD (post-traumatic stress disorder) Spastic pelvic floor syndrome Thyroid cancer (CMS/HCC) Urinary tract infection Urogenital trichomoniasis Varicella [3] ceFAZolin, 2 g, Intravenous, Once botulinum toxin Type A (Cosm), 100 Units, Intramuscular, Once Povidone-Iodine, 1 Application, Nasal, Once Insert peripheral IV, , , Once AND Saline lock IV, , , Once AND sodium chloride, 10 mL, Intravenous, q12h AND sodium chloride, 10 mL, Intravenous, PRN [4] PRN medications: Insert peripheral IV AND Saline lock IV AND sodium chloride AND sodium chloride [5] Past Surgical History: Procedure Laterality Date ABLATION, VAGINAL LESION BLADDER SURGERY posterior/anterior repair CERVICAL BIOPSY W/ LOOP ELECTRODE EXCISION SECTION, CLASSIC SECTION, LOW TRANSVERSE DILATION AND CURETTAGE OF UTERUS ENDOMETRIAL ABLATION OTHER SURGICAL HISTORY THROAT SURGERY THYROIDECTOMY, PARTIAL TONSILLECTOMY TUBAL LIGATION TYMPANOSTOMY TUBE PLACEMENT [6] Social History Tobacco Use Smoking status: Never Passive exposure: Never Smokeless tobacco: Never Vaping Use Vaping status: Every Day Substances: Nicotine, Flavoring Devices: Disposable, Pre-filled or refillable cartridge, Pre-filled pod Substance Use Topics Alcohol use: Never Drug use: Never documented in this encounter Plan of Treatment Upcoming Encounters Date Type Department Care Team (Latest Contact Info) Description 04/09/2025 10:20 AM EDT Office Visit [facility] Medicine Specialties [address] [place] [address] Griselda Cope APRN, DNP [address] [facility] [address] [place] [address] 04/15/2025 11:40 AM EDT Hospital Encounter [facility] Operating Room [address] [place] [phone] Benjamin Bender MD [address] [facility] [address] [place] [address] 04/15/2025 11:40 AM EDT - 04/15/2025 1:15 PM EDT Surgery [facility] Operating Room [address] [place] [address] Benjamin Bender MD [address] [facility] [address] [place] [address] INJECTION, ONABOTULINUMTOXINA (100 Units), [id number] Scheduled Procedures Name Priority Associated Diagnoses Date/Ti me INJECTION, ONABOTULINUMTOXINA Levator spasm 04/15/2025 11:40 AM EDT documented as of this encounter Visit Diagnoses Not on filedocumented in this encounter Additional Health Concerns Assessment Noted Time PHQ-9 Depression Total Score: 12 025 11:24 AM EDT A Body Mass Index follow-up plan has been documented for the patient 12/05/2024 7:34 AM EDT documented as of this encounter Care Teams Wood And Hardware Outfitter Relationship Specialty Start Date End Date Franklyn Cole MD [address] [place] [address] PCP - General 10/17/24 documented as of this encounter
--- OUTSIDE RECORDS SUMMARY | 2025-04-03 09:46 | XMS_ITS | Encounter Summary ---
Author Organization Healthcare Address [address] [place] [address] Care Team Providers Care Catalogue Librarian Name Role Phone Franklyn Cole MD Primary Care Provider [phone] Encounter Details Date Type Department Care Team [...] Description 04/09/2025 10:20 AM EDT Office Visit [facility] [address] [place] [address] Griselda Cope APRN, DNP [address] [place] [address] 04/15/2025 11:40 AM EDT Hospital Encounter [facility] Operating Room [address] [place] [address] Benjamin Bender MD [address] [address] 04/15/2025 11:40 AM EDT - 04/15/2025 1:15 PM EDT Surgery [facility] Operating Room [address] [place] [address] Benjamin Bender MD [address] [address] INJECTION, ONABOTULINUMTOXINA (100 Units), [id number] [...] documented as of this encounter Care Teams Catalogue Librarian Relationship Specialty Start Date End Date Franklyn Cole MD [address] [place] [id number] PCP - General 10/17/24 documented as of this encounter
--- OUTSIDE RECORDS SUMMARY | 2025-04-03 09:46 | XMS_ITS | Encounter Summary ---
Author Organization Healthcare Address [address] [place] [address] Care Team Providers Care Under Cutting Machine Operator Name Role Phone Franklyn Cole MD Primary Care Provider [phone] Encounter Details Date Type Department Care Team ([facility] Contact Info) Description 03/02/2025 Telephone Medical Office Building Obstetrics and Gynecology [address] [facility], [address] [place] [address] Benjamin Bender MD [address] [facility] [address] [place] [address] Social History Tobacco Use Types Packs/Day Years Used Date Smoking Tobacco: Former Cigarettes 1 27.4 1 - 12/2024 Passive Smoke Exposure: Never Smokeless [...] Notes * Telephone Encounter - Lisa Baker Alma - 03/10/2025 10:30 AM EDT Contacted patient to confirm that I did receive her signed insurance authorization form. I asked ifpatient would be comfortable with the appeals team completing the rest of the form for her and she stated she'd appreciated if they completed the form. Patient stated that [employer] is her primary insurance and [employer] is her secondary and should clam picker anything that Fady denies. Patient also stated that a residential sales representative from her insurance may reach [...] Description 04/09/2025 10:20 AM EDT Office Visit [facility] Medicine Specialties [address] [place] [address] Griselda Cope, ROLL HAND, DNP [address] [facility] [address] [place] [address] 04/15/2025 11:40 AM EDT Hospital Encounter [facility] S Operating Room [address] [place] [address] Benjamin Bender MD [address] [facility] [address] [place] [address] 04/15/2025 11:40 AM EDT - 04/15/2025 1:15 PM EDT Surgery [facility] S Operating Room [address] [place] [address] Benjamin Bender MD [address] [address] INJECTION, ONABOTULINUMTOXINA (100 Units), [id number] [...] documented as of this encounter Care Teams Under Cutting Machine Operator Relationship Specialty Start Date End Date Franklyn Cole MD [address] [place] [id number] PCP - General 10/17/24 documented as of this encounter
--- OUTSIDE RECORDS SUMMARY | 2025-04-03 09:46 | XMS_ITS | Encounter Summary ---
Author Organization Healthcare Address [address] [place] [address] Care Team Providers Care System Engineer Name Role Phone Franklyn Cole MD Primary Care Provider [phone] Reason for Visit * Reason Onset Date Comments Appeal Process 03/06/2025 Encounter Details Date Type Department Care Team ([facility] Contact Info) Description 03/06/2025 Telephone Medical Office Building Obstetrics and Gynecology [address] [facility], [address] [place] [address] Anya Kramer Appeal Process Social [...] of today, patient has been contacted by process coordinator regarding her next steps regarding this process. MARITZA Joyner documented in this encounter Plan of Treatment Upcoming Encounters Date Type Department Care Team (Latest Contact Info) Description 04/09/2025 10:20 AM EDT Office Visit [facility] Medicine Specialties [address] [place] [address] Griselda Cope, DEYSI, DNP [address] [place] [address] 04/15/2025 11:40 AM EDT Hospital Encounter [facility] Operating Room [address] [place] [address] Benjamin Bender MD [address] [facility] [address] [place] [address] 04/15/2025 11:40 AM EDT - 04/15/2025 1:15 PM EDT Surgery [facility] Operating Room [address] [place] [address] Benjamin Bender MD [address] [address] INJECTION, ONABOTULINUMTOXINA (100 Units), [id number] [...] documented as of this encounter Care Teams System Engineer Relationship Specialty Start Date End Date Franklyn Cole MD [address] [place] [address] PCP - General 10/17/24 documented as of this encounter
--- OUTSIDE RECORDS SUMMARY | 2025-04-03 09:46 | XMS_ITS | Encounter Summary ---
Author Organization Healthcare Address [address] [place] [address] Care Team Providers Care Sail Repair Person Name Role Phone rFanklyn Cole MD Primary Care Provider [phone] Encounter Details Date Type Department Care Team ([facility] Contact Info) Description 04/01/2025 Telephone Medical Office Building Obstetrics and Gynecology [address] [facility], [address] [place] [address] Benjamin Bender MD [address] [facility] [address] [place] [address] Social History Tobacco Use Types Packs/Day Years Used Date Smoking Tobacco: Former Cigarettes 1 27.4 1 12/2024 Passive Smoke Exposure: Never Smokeless Tobacco: [...] Telephone Encounter - Lisa Baker Alma - 04/01/2025 1:42 PM EDT Patient called to see if her insurance has approved her procedure. Per patient's employer, the [employer] termed on 03/27/2025. I advised patient to contact the customer service number on the back of her [employer] card to confirm. She said she'd call Eugene later to see what's going on. documented in this encounter Plan of Treatment Upcoming Encounters Date Type Department Care Team (Latest Contact Info) Description 04/09/2025 10:20 AM EDT Office Visit [facility] Medicine Specialties [address] [place] [address] Griselda Cope, TECHNICAL DEVELOPER, DNP [address] [place] [address] 04/15/2025 11:40 AM EDT Hospital Encounter [facility] Operating Room [address] [place] [address] Benjamin Bender MD [address] [facility] [address] [place] [address] 04/15/2025 11:40 AM EDT - 04/15/2025 1:15 PM EDT Surgery [facility] Operating Room [address] [place] [address] Benjamin Bender MD [address] [facility] [address] [place] [address] INJECTION, ONABOTULINUMTOXINA (100 Units), [id number] Scheduled Procedures Name Priority Associated Diagnoses Date/Ti me INJECTION, ONABOTULINUMTOXINA Levator spasm 04/15/2025 11:40 AM EDT documented as of this encounter Visit Diagnoses Not on filedocumented in this encounter Additional Health Concerns Assessment Noted Time PHQ-9 Depression Total Score: 12 12/02/ 025 11:24 AM EDT A Body Mass Index follow-up plan has been documented for the patient 12/05/2024 7:34 AM EDT documented as of this encounter Care Teams Sail Repair Person Relationship Specialty Start Date End Date Franklyn Cole MD [address] [place] [address] PCP - General 10/17/24 documented as of this encounter
--- OUTSIDE RECORDS SUMMARY | 2025-04-03 09:46 | XMS_ITS | Encounter Summary ---
Author Organization Healthcare Address [address] [place] [address] Care Team Providers Care Flame Channeler Name Role Phone Franklyn Cole MD Primary Care Provider [phone] Encounter Details Date Type Department Care Team [...] Description 04/09/2025 10:20 AM EDT [facility] [address] [place] [address] Griselda Cope, DEYSI, BRENDA [address] [place] [address] 04/15/2025 11:40 AM EDT Hospital Encounter [facility] Operating Room [address] [place] [address] Benjamin Bender MD [address] [facility] [address] [place] [address] 04/15/2025 11:40 AM EDT - 04/15/2025 1:15 PM EDT Surgery [facility] Operating [address] [place] [address] Benjamin Bender MD [address] [facility] [address] [place] [address] INJECTION, ONABOTULINUMTOXINA (100 Units), [id number] [...] documented as of this encounter Care Teams Flame Channeler Relationship Specialty Start Date End Date Franklyn Cole MD [address] [place] [address] PCP - General 10/17/24 documented as of this encounter
--- OUTSIDE RECORDS SUMMARY | 2025-04-03 09:46 | XMS_ITS | Encounter Summary ---
Author Organization Healthcare Address [address] [place] [address] Care Team Providers Care Rn Orthopaedics Name Role Phone Franklyn Cole MD Primary Care Provider Encounter Details Date Type Department Care Team [...] Suicidal Behavior (Lifetime) No 1:12 PM EDT Arvin, Arelis R, RN documented as of this encounter Plan of Treatment Upcoming Encounters Date Type Department Care Team (Latest Contact Info) Description 04/09/2025 10:20 AM EDT [facility] [address] [place] [address] Griselda Cope, [facility], DNP [address] [place] [address] 04/15/2025 11:40 AM EDT Hospital Encounter [facility] S Operating Room [address] [place] [address] Benjamin Bender MD [address] [facility] [address] [place] [address] 04/15/2025 11:40 AM EDT - 04/15/2025 1:15 PM EDT Surgery [facility] Operating Room [address] [place] [address] Benjamin Bender MD [address] [facility] [address] [place] [address] INJECTION, ONABOTULINUMTOXINA (100 Units), [id number] [...] documented as of this encounter Care Teams Rn Orthopaedics Relationship Specialty Start Date End Date Franklyn Cole MD [address] [place] [address] PCP - General 10/17/24 documented as of this encounter
--- OUTSIDE RECORDS SUMMARY | 2025-04-03 09:46 | XMS_ITS | Patient Health Record ---
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 in patient 19 to 64 years of age (Z98.89) 2012 Active confirmed INSERTION OF IMPLANTABLE SUBDERMAL CONTRACEPTIVE Problem state, 2 weeks (82540733) 2 weeks follow-up (Z39.2) 2012 Active confirmed EXAMINATION Problem Noninflammatory disorder of the vagina (03762123) Bloody vaginal discharge (N89.8) 2011 Active confirmed VAGINAL DISCHARGE Problem Abscess of vagina (N76.0) 2009 Active confirmed BACTERIAL VAGINITIS Problem Patient currently (63452447) 9-13 weeks gestation of (Z33.1) 2011 Active confirmed , NORMAL Plan Of Treatment No Information Medical (General) History Medical History History ICD Code LEXAPRO TABLET IMPLANON ONE DAILY 27-0.8 MG ORAL TABLET
--- OUTSIDE RECORDS SUMMARY | 2025-04-03 09:46 | XMS_ITS | Clinical Summary ---
Author Organization [facility] Address [address] [place] [address] Phone Care Team Providers Care Brush Sander Name Role Phone Unavailable Primary Care Provider Unavailabl e Allergies Active Allergy Reactions Criticality Noted Date Comments Hydrocodone Nausea Only Low 07/25/2023 Medications Azelastine 205.5 mcg (0.15 %) Nasl [place], Non-Aerosol 205.5 mcg by Nasal route 2 [...] 08/06/2023 COVID-19 Vaccine (1 - 2023- season) 2025 Influenza Vaccine (#1) 2025 , 06/06/2019, 06/28/2018, Additional history exists Meningococcal B Vaccine Aged Out No l onger eligible based on patient's age to complete this topic Pneumococcal Vaccine 0-49 Aged Out No longer eligible based on patient's age to complete this topic Medical Devices Implanted Type Area Development Administrator Device Identifier Shelf Expiration Date Model / Serial / Lot Charlene Sl Short Length Mesh Sling 12cm - [id number] Implanted:Qty: 1 on 08/14/2024 by Rosa Fang MD at [facility] N/A: Bladder [employer] 10/23/2028 [id number] 1SL / / [id number]
--- OUTSIDE RECORDS SUMMARY | 2025-04-03 09:46 | XMS_ITS | Clinical Summary ---
Author Organization Healthcare Address [address] [place] [place] [address] Care Team Providers Care Clinical Administrative Coordinator Name Role Phone Franklyn Cole MD Primary Care Provider [phone] Allergies Active Allergy Reactions Criticality Noted Date [...] mouth 3 times a day as needed. Active ibuprofen 600 MG tablet Take 1 [...] 1 time each day. Every 3 days Active polyethylene glycol (Miralax) 17 g packet [...] Room: INJECTION, ONABOTULINUMTOXINA PELVIC FLOOR (100 UNITS) [id number] Levator spasm 12/02/2024 Assessment & Plan (12/05/2024 7:34 AM EDT): Orders: Case Request Operating Room: INJECTION, ONABOTULINUMTOXINA PELVIC FLOOR (100 UNITS) [id number] Encounters Date Type Department Care Team Description 04/01/2025 Telephone Medical Office Building Obstetrics and Gynecology [address] [facility], [address] [place] [address] Benjamin Bender MD 03/06/2025 Telephone Medical Office Building Obstetrics and Gynecology [address] [facility], [address] [place] [address] Anya Kramer Appeal Process 03/04/2025 Travel 03/02/2025 Telephone Medical Office Building Obstetrics and Gynecology [address] [facility], [address] [place] [address] Benjamin Bender MD 02/12/2025 1:35 PM EDT Anesthesia Event [facility] Operating Room [address] [place] [place] [address] Galo Lawrence MD Neidig, Justin T, CRNA 02/12/2025 11:50 AM EDT - 02/12/2025 2:35 PM EDT Hospital Encounter [facility] Operating Room [address] [place] [phone] Benjamin Bender MD Discharge Disposition: Home or Self Care 02/12/2025 Travel 02/05/2025 Travel 01/27/2025 Telephone Medical Office Building Obstetrics and Gynecology [address] [facility], [address] [place] [address] Benjamin Bender MD 01/14/2025 1:15 PM EDT Pre-Admission Testing [facility] Anesthesia [address] [place] [address] 01/14/2025 Travel 01/07/2025 Travel from Last 3 [...] EDT Inhaled Oxygen Concentration - - Weight 80.7 kg (178 lb) 04/01/2025 1:12 PM EDT Height 167.6 cm (5' 6 ) 02/12/2025 1:20 PM EDT Body Mass Index 28.73 02/12/2025 1:20 PM EDT Plan of Treatment Upcoming Encounters Date Type Department Care Team (Latest Contact Info) Description 04/09/2025 10:20 AM EDT Office Visit [facility] Medicine Specialties [address] [place] [address] Griselda Cope APRN, DNP [address] [place] [address] 04/15/2025 11:40 AM EDT Hospital Encounter [facility] Operating Room [address] [place] [address] Benjamin Bender MD [address] [facility] [address] [place] [address] 04/15/2025 11:40 AM EDT - 04/15/2025 1:15 PM EDT Surgery [facility] S Operating Room [address] [place] [address] Benjamin Bender MD [address] [address] INJECTION, ONABOTULINUMTOXINA (100 Units), [id number] Scheduled Procedures Name Priority Associated Diagnoses Date/Ti me INJECTION, ONABOTULINUMTOXINA Levator spasm 04/15/2025 11:40 AM EDT Health Maintenance Due Date Last Done Comments [facility]-HIV Screening 1985 [facility]-Hepatitis C Screening 1985 [facility]-Infant/Child/Adol SDOH Screenings 1985 [facility]-Varicella Vaccines (1 of 2 - 13+ 2-dose series) 1998 [facility]- SDOH Screenings 2003 [facility]-Adult SDOH Screenings 2003 [facility]-Pap Smear 2006 HPV Vaccines (1 - 3-dose SCDM series) 2012 [facility]-Cervical Cancer Screening 2015 [facility]-HPV/Cotest 2015 [facility]-Hepatitis B Vaccines (2 of 3 - 19+ 3-dose series) 09/03/2023 08/06/2023 [id number] Vaccine (3 - 2024- season) 2025 06/04/2021, 12/11/2020 [facility]-Influenza Vaccine (#1) 03/23/202505/28, 06/06/2019, [...] on patient's age to complete this topic Procedures Procedure Name Priority Date/Time Associated Diagnosis Comments POCT , URINE Routine 02/12/2025 1:21 PM EDT POCT GLUCOSE METER UNSOLICITED RESULTS Routine 02/12/2025 1:19 PM EDT from Last 3 Months Results * POCT , URINE (02/12/2025 1:21 PM EDT) POCT Test, Urine Negative Males and Non- Females: Negative 02/12/2025 1:28 PM EDT [facility] Email Marketing Executive ID Marvin Castro 02/12/2025 1:28 PM EDT [facility] Device ID [id number] 02/12/2025 1:28 PM EDT [facility] Urine Urine specimen obtained by clean catch procedure / Unknown 02/12/2025 1:21 PM EDT 02/12/2025 1:28 PM EDT Benjamin Bender MD LAB POINT OF CARE TE ST DOCKED DEVICE UNSOLICITED RESULTS Final Result [facility] [address] [place] [address] * POCT glucose meter (02/12/2025 1:19 PM EDT) Pathologist [facility] POCT Glucose 91 74 - 99 mg/dL [...] 02/12/2025 1:20 PM EDT [facility] Email Marketing Executive ID Marvin Castro 02/12/2025 1:20 PM EDT [facility] Device ID [id number] 02/12/2025 1:20 PM EDT [facility] Specimen Type POC Capillary 02/12/2025 1:20 PM EDT [facility] Blood Capillary blood specimen / Unknown 02/12/2025 1:19 PM EDT 02/12/2025 1:20 PM EDT Benjamin Bender MD LAB POINT OF CARE TE ST DOCKED DEVICE UNSOLICITED RESULTS Final Result [facility] [address] [place] [address] from Last 3 Months Insurance [facility] MEDICA[facility] Care Teams Clinical Administrative Coordinator Relationship Specialty Start Date End Date Franklyn Cole MD [address] [place] [address] PCP - General 10/17/24
== END 2025-04-01 23:59 | disposition home or self-care (01) ==
LOC: LAB.DROPOF 04-03 09:43
PROVIDERS: PCP Family Medicine; Visit Provider Obstetrics & Gynecology
DX: N89.8 Other specified noninflammatory disorders of vagina (principal)
CPT/HCPCS: 87491; 87529; 87591; 87661; 87798; 87801

== ENCOUNTER 2025-06-22 17:52 | Outpatient (CLI) | payer OTHER, MEDICAID, SELFPAY ==
--- OUTSIDE RECORDS SUMMARY | 2025-06-20 20:40 | XMS_ITS | Encounter Summary ---
Author Organization [employer] ([place], [place], [place], [place], [place]) Address [address] [place] [address] Care Team Providers Care Transportation Engineering Technician Name Role Phone Unavailable Primary Care Provider Unavailabl e Reason for Visit * Reason Comments Ankle Injury Pt states she missed the last step and rolled her right ankle. Encounter Details Date Type Department Care Team (Late st Contact Info) Description 06/20/2025 8:40 PM EST - 06/20/2025 10:16 PM EST Emergency [facility] [address] [place] [address] Tanvi Guanako, DO [address] [place] [address] Sprain of anterior talofibular ligament of right ankle, initial encounter (Primary Dx) Discharge Disposition: Home or Self Care Social History Tobacco Use Types Packs/Day Years Used Date Smoking Tobacco: Unknown Tobacco Cessation:Counseling Given: Not Answered Comments Unknown Sex and Gender Information Value Date Recorded Sex Assigned at Not on file Legal Sex Female 5:54 PM CDT Gender Identity Not on file Sexual Orientation Not on file documented as of this encounter Last Filed Vital Signs Vital Sign Reading Time Taken Comments Blood Pressure 131/91 06/20/2025 8:45 PM EST Pulse 97 06/20/2025 8:45 PM EST Temperature 36.9 C (98.4 F) 06/20/2025 8:45 PM EST Respiratory Rate 20 06/20/2025 8:45 PM EST Oxygen Saturation 96% 06/20/2025 8:45 PM EST Inhaled Oxygen Concentration - - Weight 81.6 kg (180 lb) 06/20/2025 8:45 PM EST Height 167.6 cm (5' 6 ) 06/20/2025 8:45 PM EST Body Mass Index 29.05 06/20/2025 8:45 PM EST documented in this encounter Discharge Instructions * Attachments The following attachments cannot be sent through Care Everywhere. * Ankle Sprain (Palestinian) documented in this encounter Medications at Time of Discharge diclofenac sodium (VOLTAREN) 75 MG EC tablet Take 1 tablet (75 mg total) by mouth 2 (two) times daily for 10 days. 20 tablet 06/20/2025 06/30/2025 documented as of this encounter ED Notes * Guanako Tinajero, DO - 06/20/2025 8:48 PM EST Subjective Chief Complaint: Ankle Injury (Pt states she missed the last step and rolled her right ankle.) Faye Rwoland is a 39-year-old female whom presents by private vehicle with a chief complaint of rightankle pain. It began suddenly an hour ago when she was walking down the upset and inverted her right ankle. She denies any numbness or tingling. The pain radiates up towards the tibial region proximally and cephalad. She denies any other injury. She worse with walking. Improves with rest. She took ibuprofen 800 mg with no relief. Patient History No past medical history on file. No past surgical history on file. No family history on file. Social History Tobacco Use Smoking status: Unknown Smokeless tobacco: Not on file Substance Use Topics Alcohol use: Not on file I reviewed the HPI, ROS and PFSH documentation recorded by others in the medical record and supplemented my note as needed. Review of Systems Review of Systems All other systems reviewed and are negative. Physical Exam ED Triage Vitals [06/20/252044] Encounter Vitals Group BP (!) 131/91 Girls Systolic BP Percentile Girls Diastolic BP Percentile Boys Systolic BP Percentile Boys Diastolic BP Percentile Pulse 97 Resp 20 Temp 98.4 ??F (36.9 ??C) Temp src Oral SpO2 96 % Weight 81.6 kg (180 lb) Height 1.676 m (5' 6 ) Head Circumference Peak Flow Pain Score Eight Pain Loc Pain Education Exclude from Growth Chart Physical Exam Vitals and nursing note reviewed. Exam conducted with a tip tester present. Constitutional: General: She is awake. She is not in acute distress. Appearance: Normal appearance. She is well-developed. She is not ill-appearing, toxic-appearing or diaphoretic. HENT: Head: Normocephalic and atraumatic. Jaw: There is normal jaw occlusion. Right Ear: Hearing, tympanic membrane, ear canal and external ear normal. Left Ear: Hearing, tympanic membrane, ear canal and external ear normal. Nose: Nose normal. Mouth/Throat: Mouth: Mucous membranes are moist. Pharynx: Oropharynx is clear. Eyes: General: Lids are normal. Lids are everted, no foreign bodies appreciated. Vision grossly intact. Gaze aligned appropriately. Extraocular Movements: Extraocular movements intact. Conjunctiva/sclera: Conjunctivae normal. Pupils: Pupils are equal, round, and reactive to light. Neck: Trachea: Trachea and phonation normal. Meningeal: Brudzinski's sign and Kernig's sign absent. Cardiovascular: Rate and Rhythm: Normal rate and regular rhythm. Pulses: Normal pulses. Heart sounds: Normal heart sounds. Pulmonary: Effort: Pulmonary effort is normal. Breath sounds: Normal breath sounds and air entry. Abdominal: General: Bowel sounds are normal. Palpations: Abdomen is soft. Genitourinary: Rectum: Normal. Musculoskeletal: General: Swelling and tenderness present. Normal range of motion. Cervical back: Full passive range of motion without pain, normal range of motion and neck supple. Feet: Right foot: Skin integrity: Skin integrity normal. Toenail Condition: Right toenails are normal. Left foot: Skin integrity: Skin integrity normal. Toenail Condition: Left toenails are normal. Skin: General: Skin is warm and dry. Capillary Refill: Capillary refill takes less than 2 seconds. Neurological: General: No focal deficit present. Mental Status: She is alert and oriented to person, place, and time. Mental status is at baseline. GCS: GCS eye subscore is 4. GCS verbal subscore is 5. GCS motor subscore is 6. Sensory: Sensation is intact. Motor: Motor function is intact. Coordination: Coordination is intact. Gait: Gait is intact. Deep Tendon Reflexes: Reflexes are normal and symmetric. Psychiatric: Attention and Perception: Attention and perception normal. Mood and Affect: Mood and affect normal. Speech: Speech normal. Behavior: Behavior normal. Behavior is cooperative. Thought Content: Thought content normal. Judgment: Judgment normal. Neurological Exam Mental Status Awake and alert. Oriented to person, place, and time. Speech is normal. Cranial Nerves CN III, IV, : Extraocular movements intact bilaterally. Normal lids and orbits bilaterally. Pupils equal round and reactive to light bilaterally. CN VIII: Right: Hearing is normal. Left: Hearing is normal. Sensory Normal sensation. Reflexes Deep tendon reflexes are 2+ and symmetric in all four extremities. Coordination Gsjanr-[id number]-vnqv, rapid alternating movements and ntdt-de-wzfi normal bilaterally without dysmetria. Gait Normal gait. Ortho Exam ED Course & MDM Medications ketorolac (TORADOL) injection 60 mg (has no administration in time range) oxyCODONE-acetaminophen (PERCOCET) 5-325 mg per tablet 1 tablet (has no administration in time range) ondansetron (ZOFRAN-ODT) disintegrating tablet 4 mg (has no administration in time range) No results found for this or any previous visit. XR leg / tibia and fibula 2 views right (Results Pending) XR ankle 3 views right (Results Pending) ED Course as of 06/20/252134 Sat Jun 20, 20252132 Right tibia and fibula x-ray and right ankle x-ray 2 views interpreted independently by myselfshows soft tissue swelling. No acute injury or dislocation [AK] ED Course User Index [AK] Guanako Tinajero DO Procedures Medical Decision Making Patient x-ray shows no fracture or dislocation. Neuro vastly intact. A boot was placed by the nurse. Neurovascular intact after boot was placed. Given crutches. Orthopedic referral. Rest ice and elevation. I suspect tendon injury. She does have soft tissue swelling over the course of the the lateral anterior tibial tendon. She was given clear return precautions. Amount and/or Complexity of Data Reviewed Independent Historian: spouse External Data Reviewed: radiology. Radiology: ordered and independent interpretation performed. Decision-making details documented in ED Course. Risk Prescription drug management. Assessment & Plan Clinical Impression Diagnosis Comment Added By Time Added Sprain of anterior talofibular ligament of right ankle, initial encounter Guanako Tinajero DO 06/20/2025 9:34 PM Disposition Discharge [1] - 06/20/2025 9:34 PM New Prescriptions DICLOFENAC SODIUM (VOLTAREN) 75 MG EC TABLET Take 1 tablet (75 mg total) by mouth 2 (two) times daily for 10 days. Contact information for follow-up [facility] Specialty: Emergency Medicine [address] [facility] [address] Next Steps: Follow up in 1 day(s) Alondra Meek MD Specialty: Orthopedic Surgery [facility] [address] [address] Next Steps: Follow up in 3 day(s) Electronically Signed By Guanako Tinajero DO 06/20/252134 [facility] [employer] documented in this encounter Plan of Treatment Not on file documented as of this encounter Procedures Procedure Name Priority Date/Time Associated Diagnosis Comments XR LEG / TIBIA AND FIBULA 2 VIEWS RIGHT STAT 06/20/2025 9:08 PM EST XR ANKLE 3 VIEWS RIGHT STAT 06/20/2025 9:06 PM EST documented in this encounter Results * XR leg / tibia and fibula 2 views right (06/20/2025 9:08 PM EST) Anatomical Region Laterality Modality Leg, Knee, Ankle X-Ray 06/21/2025 8:50 AM EST Impressions 06/21/2025 10:13 AM EST No acute bony abnormality. RIGHT ANKLE HISTORY: Right ankle pain. FINDINGS: Three views show no evidence of an acute, displaced fracture or dislocation of the visualized bony architecture. The joint spaces appear normal. The ankle mortise is intact. There is soft tissue swelling greatest laterally. IMPRESSION: No acute bony abnormality. Images reviewed, interpreted, and dictated by Dr. Adriel De Souza. Transcribed by Vish Crane PA-C. Narrative 06/21/2025 10:13 AM EST RIGHT TIBIA / FIBULA HISTORY: Right lower leg pain. FINDINGS: Two views show no evidence of an acute, displaced fracture or dislocation of the visualized bony architecture. There is focal osseous thickening of the proximal tibial cortex which may be related to previous trauma. Procedure Note Adriel De Souza MD - 06/21/2025 RIGHT TIBIA / FIBULA HISTORY: Right lower leg pain. FINDINGS: Two views show no evidence of an acute, displaced fracture or dislocation of the visualized bony architecture. There is focal osseous thickening of the proximal tibial cortex which may be related to previous trauma. IMPRESSION: No acute bony abnormality. RIGHT ANKLE HISTORY: Right ankle pain. FINDINGS: Three views show no evidence of an acute, displaced fracture or dislocation of the visualized bony architecture. The joint spaces appear normal. The ankle mortise is intact. There is soft tissue swelling greatest laterally. IMPRESSION: No acute bony abnormality. Images reviewed, interpreted, and dictated by Dr. Adriel De Souza. Transcribed by Vish Crane PA-C. Guanako Tinajero IM DIAGNOSTIC IMAGING ORDERABL ES Final Result * XR ankle 3 views right (06/20/2025 9:06 PM EST) Anatomical Region Laterality Modality Leg, Ankle, Foot X-Ray 06/21/2025 8:50 AM EST Impressions 06/21/2025 10:13 AM EST No acute bony abnormality. RIGHT ANKLE HISTORY: Right ankle pain. FINDINGS: Three views show no evidence of an acute, displaced fracture or dislocation of the visualized bony architecture. The joint spaces appear normal. The ankle mortise is intact. There is soft tissue swelling greatest laterally. IMPRESSION: No acute bony abnormality. Images reviewed, interpreted, and dictated by Dr. Adriel De Souza. Transcribed by Vish Crane PA-C. Narrative 06/21/2025 10:13 AM EST RIGHT TIBIA / FIBULA HISTORY: Right lower leg pain. FINDINGS: Two views show no evidence of an acute, displaced fracture or dislocation of the visualized bony architecture. There is focal osseous thickening of the proximal tibial cortex which may be related to previous trauma. Procedure Note Adriel De Souza MD - 06/21/2025 RIGHT TIBIA / FIBULA HISTORY: Right lower leg pain. FINDINGS: Two views show no evidence of an acute, displaced fracture or dislocation of the visualized bony architecture. There is focal osseous thickening of the proximal tibial cortex which may be related to previous trauma. IMPRESSION: No acute bony abnormality. RIGHT ANKLE HISTORY: Right ankle pain. FINDINGS: Three views show no evidence of an acute, displaced fracture or dislocation of the visualized bony architecture. The joint spaces appear normal. The ankle mortise is intact. There is soft tissue swelling greatest laterally. IMPRESSION: No acute bony abnormality. Images reviewed, interpreted, and dictated by Dr. Adriel De Souza. Transcribed by Vish Crane PA-C. Guanako Tinajero [facility] [place] [place] DIAGNOSTIC IMAGING ORDERABL ES Final Result documented in this encounter Visit Diagnoses Diagnosis Sprain of anterior talofibular ligament of right ankle, initial encounter- Primary documented in this encounter Administered Medications Inactive Administered Medications - up to 3 most recent administrations Medication Order MAR Action Action Date Dose Rate Site ketorolac (TORADOL) injection 60 mg 60 mg Once, intraMUSCULAR, On 06/20/25 at 2049, For 1 dose Given 06/20/2025 9:45 PM EST 60 mg Left Anterior Thigh ondansetron (ZOFRAN-ODT) disintegrating tablet 4 mg 4 mg Once, oral, On 06/20/25 at 213, For 1 dose Given 06/20/2025 9:45 PM EST 4 mg oxyCODONE-acetaminophen (PERCOCET) 5-325 mg per tablet 1 tablet 1 tablet Once, oral, On 06/20/25 at 213, For 1 dose, Recommended maximum dose of acetaminophen is 4000 mg from all sources in 24 hours Look-alike/Sound-alike medication Given 06/20/2025 9:45 PM EST 1 tablet documented in this encounter Active and Recently Administered Medications Times are shown in EST. Scheduled Medication Order 06/18/2025 06/19/2025 06/20/2025 ketorolac (TORADOL) injection 60 mg (COMPLETED) 60 mg Once, intraMUSCULAR, On 06/20/25 at 2049, For 1 dose 2144 (Given - Provid er: Dat Humberto) ondansetron (ZOFRAN-ODT) disintegrating tablet 4 mg (COMPLETED) 4 mg Once, oral, On 06/20/25 at 2134, For 1 dose 2144 (Given - Provid er: Dat Humberto) oxyCODONE-acetaminophen (PERCOCET) 5-325 mg per tablet 1 tablet (COMPLETED) 1 tablet Once, oral, On 06/20/25 at 213, For 1 dose, Recommended maximum dose of acetaminophen is 4000 mg from all sources in 24 hours Look-alike/Sound-alike medication 2145 (Given - Provid er: Dat Paul) documented in this encounter
--- OUTSIDE RECORDS SUMMARY | 2025-06-22 17:58 | XMS_ITS | Clinical Summary ---
Author Organization [employer] ([place], [place], [place], [place], [place]) Address [address] [place] [address] Care Team Providers Care Social Media Analyst Name Role Phone Franklyn Cole MD Primary Care Provider [phone] Allergies Active Allergy Reactions Criticality Noted Date Comments Hydrocodone 06/20/2025 Medications diclofenac sodium (VOLTAREN) 75 MG EC tablet Take 1 tablet (75 mg total) by mouth 2 (two) times daily for 10 days. 20 tablet 06/20/2025 Active Encounters Date Type Department Care Team Description 06/20/2025 8:40 PM EST - 06/20/2025 10:16 PM EST Emergency [facility] [address] [place] [address] Guanako Tinajero DO Sprain of anterior talofibular ligament of right ankle, initial encounter (Primary Dx) Discharge Disposition: Home or Self Care 06/20/2025 Travel from Last 3 Months Social History Tobacco Use Types Packs/Day Years Used Date Smoking Tobacco: Unknown Tobacco Cessation:Counseling Given: Not Answered Comments Unknown Sex and Gender Information Value Date Recorded Sex Assigned at Not on file Legal Sex Female 5:54 PM CDT Gender Identity Not on file Sexual Orientation Not on file Last Filed Vital Signs Vital Sign Reading [...] Mass Index 29.05 06/20/2025 8:45 PM EST Plan of Treatment Health Maintenance Due Date Last Done Comments Depression Screening (12+) 1997 Tobacco Cessation Counseling and Screening (12+) 1997 HIV Screening 2000 Hepatitis C Screening 2003 DTAP/TDAP/TD VACCINES (1 - Tdap) 2004 Pap Smear 2006 COVID-19 VACCINE (3 - 2024-2 6 season) 2025 06/04/2021, 12/11/2020 Influenza Vaccine (#1) 2025 Pneumococcal Vaccine: 0-49 Years Aged Out No longer eligible b ased on patient's age to complete this topic Procedures Procedure Name Priority Date/Time Associated Diagnosis Comments XR LEG / TIBIA AND FIBULA 2 VIEWS RIGHT STAT 06/20/2025 9:08 PM EST XR ANKLE 3 VIEWS RIGHT STAT 06/20/2025 9:06 PM EST from Last 3 Months Results * XR leg / tibia and [...] Transcribed by Vish Crane PA-C. Guanako Tinajero DO IM DIAGNOSTIC IMAGING ORDERABL ES Final Result [...] Transcribed by Vish Crane PA-C. Guanako Tinajero DO IMG DIAGNOSTIC IMAGING ORDERABL ES Final Result from Last 3 Months Insurance [facility] Care Teams Social Media Analyst Relationship Specialty Start Date End Date Franklyn Cole MD [address] [place] [address] PCP - General Family Medicine 06/21/25
--- OUTSIDE RECORDS SUMMARY | 2025-06-22 17:58 | XMS_ITS | Clinical Summary ---
Author Organization [facility] Address [address] [place] [address] Phone Care Team Providers Care Mac Operator Name Role Phone Unavailable Primary Care Provider Unavailabl e Allergies Active Allergy Reactions Criticality Noted Date Comments Hydrocodone Nausea Only Low 07/25/2023 Medications Azelastine 205.5 mcg (0.15 %) Nasl [place], Non-Aerosol 205.5 mcg by Nasal route 2 [...] 07/25/2023 Pelvic floor dysfunction in female 07/25/2023 Encounters Date Type Department Care Team Description 06/02/2025 Refill [facility] [address] [address] Rosa Fang MD Medication Refill from Last 3 Months Surgical History Surgery Date Site/Laterality Comments LEEP [...] N/A .; Surgeon: Rosa Fang MD; Location: [facility] MAIN OR; Service: Gynecology Medical devices from [...] 19+ 3-dose series) 09/03/2023 08/06/2023 COVID-19 Vaccine (2024- season) 2025 Influenza Vaccine (#1) 2025 , 06/06/2019, 06/28/2018, Additional history exists Meningococcal B Vaccine Aged Out No l onger eligible based on patient's age to complete this topic Pneumococcal Vaccine 0-49 Aged Out No longer eligible based on patient's age to complete this topic Medical Devices Implanted Type Area Training Generalist Device Identifier Shelf Expiration Date Model / Serial / Lot Charlene Sl Short Length Mesh Sling 12cm - [id number] Implanted:Qty: 1 on 08/14/2024 by Rosa Fang MD at [facility] N/A: Bladder [employer] 10/23/2028 [id number] / / [id number]
--- OUTSIDE RECORDS SUMMARY | 2025-06-22 17:58 | XMS_ITS | Encounter Summary ---
Author Organization [employer] ([place], [place], [place], [place], [place]) Address [address] [place] [address] Care Team Providers Care Auto Transmission Specialist Name Role Phone Unavailable Primary Care Provider Unavailabl e Encounter Details Date Type Department Care Team (Latest Contact Info) Description 06/20/2025 Travel Social History Tobacco Use Types Packs/Day Years Used Date Smoking Tobacco: Unknown Comments Unknown Sex and Gender Information Value Date Recorded Sex Assigned at Not on file Legal Sex Female 5:54 PM CDT Gender Identity Not on file Sexual Orientation Not on file documented as of this encounter Plan of Treatment Not on file documented as of this encounter Visit Diagnoses Not on filedocumented in this encounter
--- OUTSIDE RECORDS SUMMARY | 2025-06-22 17:58 | XMS_ITS | Referral Summary ---
Author Organization [employer] ([place], [place], [place], [place], [place]) Address [address] [place] [address] Care Team Providers Care Software Technician Name Role Phone Franklyn Cole MD Primary Care Provider [phone] Encounters Date Type Department Care Team Description 06/20/2025 Travel 06/20/2025 8:40 PM EST - 06/20/2025 10:16 PM EST Emergency [facility] Department [address] [place] [address] Guanako Tinajero DO Sprain of anterior talofibular ligament of right ankle, initial encounter (Primary Dx) Discharge Disposition: Home or Self Care from Last 3 Months Allergies Active Allergy Reactions Criticality Noted Date Comments Hydrocodone 06/20/2025 Medications diclofenac sodium (VOLTAREN) 75 MG EC tablet Take 1 tablet (75 mg total) by mouth 2 (two) times daily for 10 days. 20 tablet 06/20/2025 Active Social History Tobacco Use Types Packs/Day Years [...] 06/20/2025 8:45 PM EST Plan of Treatment Not on file Procedures Procedure Name Priority Date/Time Associated Diagnosis [...] by Vish Crane PA-C. Guanako Tinajero DO [facility] DIAGNOSTIC IMAGING ORDERABL ES Final Result * [...] by Vish Crane PA-C. Guanako Tinajero DO [facility] DIAGNOSTIC IMAGING ORDERABL ES Final Result from Last 3 Months Insurance [facility] Care Teams Software Technician Relationship Specialty Start Date End Date Franklyn Cole MD [address] [place] [address] PCP - General Family Medicine 06/21/25
--- OUTSIDE RECORDS SUMMARY | 2025-06-22 17:58 | XMS_ITS | Encounter Summary ---
Author Organization [employer] [place] [address] Care Team Providers Care Supervisor Burling And Joining Name Role Phone Unavailable Primary Care Provider Unavailabl e Reason for Visit * Reason Comments Medication Refill Encounter Details Date Type Department Care Team (Late st Contact Info) Description 06/02/2025 Refill [facility] [address] [address] Rosa Fang MD [address] [place] [address] [phone] Medication Refill Social History Tobacco Use Types Packs/Day Years Used Date Smoking Tobacco: Former Cigarettes 1 34.3 0 07/23/1989 - 11/21/2023 Smokeless Tobacco: Never Alcohol Use Standard Drinks/Week [...]
--- OUTSIDE RECORDS SUMMARY | 2025-06-22 17:58 | XMS_ITS | Encounter Summary ---
Author Organization [facility] Address [address] [place] [address] Care Team Providers Care Business Management Specialist Name Role Phone Franklyn Cole MD Primary Care Provider [phone] Encounter Details Date Type Department Care Team (Late st Contact Info) Description 04/23/2025 Telephone [facility] Medicine Specialties [address] [place] [address] Danish Rivera, RN None None Social History Tobacco Use Types Packs/Day Years [...] Upcoming Encounters Date Type Department Care Team (Late st Contact Info) Description 08/17/2025 10:20 AM EST Office Visit [facility] Medicine Specialties [address] [place] [address] Cyn Grace, ANUP [address] [place] [address] documented as of this encounter Visit Diagnoses Not on filedocumented in this encounter Additional Health Concerns Assessment Noted Time PHQ-9 Depression Total Score: 12 025 11:24 AM EDT A Body Mass Index follow-up plan has been documented for the patient 12/05/2024 7:34 AM EDT documented as of this encounter Care Teams Business Management Specialist Relationship Specialty Start Date End Date Franklyn Cole MD [address] [place] [address] PCP - General 10/17/24 documented as of this encounter
--- OUTSIDE RECORDS SUMMARY | 2025-06-22 17:58 | XMS_ITS | Clinical Summary ---
Author Organization Healthcare Address [address] [place] [address] Care Team Providers Care Votator Machine Operator Name Role Phone Franklyn Cole MD Primary Care Provider [phone] Allergies Active Allergy Reactions Criticality Noted Date [...] time each day. Every 3 days Active docusate sodium (Colace) 100 MG capsule Take [...] to be completed 02/23/2025 for URI 01/21/20 25 Active methylPREDNISolone (Medrol Dospak) 4 MG tablets follow package directions 01/09/20 25 Active acetaminophen (Tylenol) 325 MG tabletIndications: Pain Take 2 tablets by mouth every 6 hours. 60 tablet 04/15/20 25 Active polyethylene glycol (Miralax) 17 g packet Take 17 g by mouth daily. 30 packet 5 12/03/19 25 025 Additional Information Patient not taking.Reported on 02/17/2025 Active Problems Problem Noted Date Diagnosed Date Pelvic pain in female 12/02/2024 Assessment & Plan (12/05/2024 7:34 AM EDT): Orders: Ambulatory referral to Gastroenterology; Future Case Request Operating Room: INJECTION, ONABOTULINUMTOXINA PELVIC FLOOR (100 UNITS) [id number] Levator spasm 12/02/2024 Assessment & Plan (04/15/2025 10:13 AM EDT): Assessment & Plan (12/05/2024 7:34 AM EDT): Orders: Case Request Operating Room: INJECTION, ONABOTULINUMTOXINA PELVIC FLOOR (100 UNITS) [id number] Encounters Date Type Department Care Team Description 04/23/2025 Telephone [facility] [address] [place] [address] Danish Rivera RN 04/15/2025 10:30 AM EDT - 04/15/2025 11:30 AM EDT Surgery [facility] Operating Room [address] [place] [address] Benjamin Bender MD INJECTION, ONABOTULINUMTOXINA (100 Units), [id number] 04/15/2025 10:15 AM EDT Anesthesia Event [facility] Operating [address] [place] [address] Jacky Gannon MD Holzapfel, Hailey A, CRNA, DNP 04/15/2025 8:32 AM EDT - 04/15/2025 12:03 PM EDT Hospital Encounter [facility] [address] [place] [address] Benjamin Bender MD Levator spasm; Pelvic pain in female Discharge Disposition: Home or Self Care 04/15/2025 Telephone [facility] Ob[facility]s [facility] Gynecology [address], [address] [place] [address] Benjamin Bender MD 04/15/2025 Travel 04/08/2025 Travel 04/01/2025 Telephone Medical Office Building Obstetrics and Gynecology [address], [address] [place] [address] Benjamin Bender MD from Last 3 Months Family History Medical [...] Sign Reading Time Taken Comments Blood Pressure 105/63 04/15/2025 11:43 AM EDT Pulse 65 04/15/2025 11:43 AM EDT Temperature 36.6 C (97.9 F) 04/15/2025 11:43 AM EDT Respiratory Rate 17 04/15/2025 11:4 3 AM EDT Oxygen Saturation 100% 04/15/2025 11: 43 AM EDT Inhaled Oxygen Concentration - - Weight 84.7 kg (186 lb 11.7 oz) 04/15/2025 8:55 AM EDT Height 167.6 cm (5' 6 ) 04/15/2025 8:55 AM EDT Body Mass Index 30.14 04/15/2025 8:55 AM EDT Plan of Treatment Upcoming Encounters Date Type Department Care Team (Late st Contact Info) Description 08/17/2025 10:20 AM EST Office Visit [facility] [address] [place] [address] Cyn Grace, ANUP [address] [place] [address] Health Maintenance Due Date Last Done Comments [...] 3 - 19+ 3-dose series) 09/03/2023 08/06/2023 [id number] Vaccine (3 - 2024- season) 2025 06/04/2021, [...] Procedure Name Priority Date/Time Associated Diagnosis Comments PB ANESTHESIA PLACEHOLDER Routine 2024 10:24 AM EDT KS AN ELECTIVE SUPRAGLOTTIC AIRWAY Routine 04/15/2025 10:24 AM EDT INJECTION, ONABOTULINUMTOXINA 04/15/2025 10:05 AM EDT Levator spasm POCT , URINE Routine 04/15/2025 9:59 AM EDT POCT GLUCOSE METER UNSOLICITED RESULTS Routine 04/15/2025 8:59 AM EDT from Last 3 Months Results * KS AN ELECTIVE SUPRAGLOTTIC AIRWAY, PB ANESTHESIA PLACEHOLDER (04/15/2025 10:24 AM EDT) Narrative Margaret Michel CRNA, DNP - 04/15/2025 10:24 AM EDT Margaret Michel CRNA, DNP 04/15/2025 10:33 AM Airway Date/Time: 04/15/2025 10:24 AM Reason: elective Airway not difficult General Information and Staff Patient location during procedure: OR HALL CLERK: Margaret Michel CRNA, DNP Performed: HALL CLERK Patient Condition Indications for airway management: anesthesia Patient position: sniffing Final Airway Details Final airway type: LMALMA Size: 4 LMA Type: normal us Jacky Gannon MD ANESTHESIA ORDERABLES Final Resu lt * POCT , URINE (04/15/2025 9:59 AM EDT) [facility] POCT Test, Urine Negative Males and Non- Females: Negative 04/15/2025 10:05 AM EDT [facility] Awning Assembler ID Marvin Castro 04/15/2025 10:05 AM EDT [facility] Device ID [id number] 04/15/2025 10:05 AM EDT [facility] Urine Urine specimen obtained by clean catch procedure / Unknown 04/15/2025 9:59 AM EDT 04/15/2025 10:05 AM EDT us Benjamin Bender MD LAB POINT OF CARE TE ST DOCKED DEVICE UNSOLICITED RESULTS Final Result [facility] [address] [place] [address] * POCT glucose meter (04/15/2025 8:59 AM EDT) [facility] POCT Glucose 89 74 - 99 mg/dL 04/15/2025 9:00 AM EDT [facility] Comment:Accuracy of a glucos e result obtained from a capillary whole blood specimen relies upon adequate, non-compromised capillary blood flow. If the capillary glucose result is not consistent with the patient's clinical signs and symptoms, glucose testing should be repeated with either an arterial or venous sample on the glucometer or sent to the main labortory for testing. Comment 04/15/2025 9:00 AM EDT [facility] Awning Assembler ID Petrona Green 9:00 AM EDT [facility] Device ID [id number] 04/15/2025 9:00 AM EDT [facility] Specimen Type POC Capillary 04/15/2025 9:00 AM EDT [facility] Blood Capillary blood specimen / Unknown 04/15/2025 8:59 AM EDT 04/15/2025 9:00 AM EDT Benjamin Bender MD LAB POINT OF CARE TE ST DOCKED DEVICE UNSOLICITED RESULTS Final Result Performing Organization Address City/State/[facility] Co de Phone Number [facility] [address] [place] [address] from Last 3 Months Insurance [facility] [employer] Care Teams Votator Machine Operator Relationship Specialty Start Date End Date Franklyn Cole MD [address] [place] [address] PCP - General 10/17/24
--- NOTE | 2025-06-22 18:02 | XR_ITS ---
PROCEDURE INFORMATION: Exam: XR Right Ankle Exam date and time: 06/22/2025 5:54 PM Age: 39 years old Clinical indication: Pain; Ankle; Right; Additional info: Right ankle pain TECHNIQUE: Imaging protocol: Radiologic exam of the right ankle. Views: 3 or more views. COMPARISON: CR (ANKLE AP, ANKLE, ANKLE AP) 02/05/2019 4:18 PM FINDINGS: Bones/joints: No acute fracture or malalignment. Soft tissues: Mild generalized soft tissue swelling. IMPRESSION: Mild generalized soft tissue swelling. No acute osseous findings.
== END 2025-06-22 23:59 | disposition home or self-care (01) ==
LOC: RAD 17:56
PROVIDERS: PCP Family Medicine; Visit Provider Family Medicine
DX: M25.571 Pain in right ankle and joints of right foot (principal); M79.89 Other specified soft tissue disorders
CPT/HCPCS: 73610

== ENCOUNTER 2025-07-20 13:09 | Outpatient (RCR) | payer OTHER, MEDICAID, SELFPAY ==
--- NOTE | 2025-07-20 13:58 | HMH.PTOPEV ---
PT Evaluation Rehab PT Outpatient Evaluation Start: 07/20/25 13:48 Freq: Status: Active Protocol: Document 07/20/25 13:48 MAIRA (Rec: 07/20/25 13:58 PHOKIRSTIE [id number]) E-signed By Charles Peter, PT Outpatient Therapy Subjective History Subjective History This is the initial PT eval for Faye Rowland, 40 yowf who presents with c/o pain and weakness in the R ankle S/P inversion ankle sprain suffered ~ 1 mo ago. She reports she missed the last step going down stairs and rolled her ankle. She has been in a cam walker for 3 wks since her injury and presents in a regular shoe with figure [address] this date. She continues to report tenderness along the lateral side of her R ankle with palpation. Chief Complaint Pain Symptom Type Ache,Burning Symptoms Relieved By Rest/Positioning Symptoms Aggravated Standing,Physical Activity,Walking By Prior Functional None Limitations Current Functional Standing,Recreation Activity,Walking,Balance Limitations Symptom Description Intermittent,Activity Dependent Level of pain today 0 (0-10) Pain scale - at its 6 worst (0-10) Ankle/Foot Eval Gait Observation General Gait Pattern No Deviations/Normal Observation Palpation Tenderness right Ankle/Foot Palpation Tenderness Findings Ankle/Foot Palpation 2/4 ATFL and surrounding areas Overall Comment ATF TTP positive PTF TTP negative CF TTP positive ROM Ankle/Foot 0-6 Dorsiflexion w/Knee Extended Active Range Motion ( degrees) Ankle/Foot Plantar 0-30 Flexion Active Range of Motion (degrees) Ankle/Foot Eversion 0-12 Active Range of Motion (degrees) Ankle/Foot Inversion 0-32 Active Range of Motion (degrees) MMT Ankle Dorsiflexion 4 Good Strength Grade Ankle Plantarflexion 4 Good Strength Grade Foot Eversion 4 Good Strength Grade Foot Inversion 4 Good Strength Grade Special Tests Ankle Anterior Negative Left,Negative Right Drawer Test Ankle Eversion Test Negative Left,Negative Right Talar Tilt Test Negative Left,Negative Right Ankle Posterior Negative Left,Negative Right Drawer Test Lower Extremity Functional Index Activities Today, do you or would you have any difficulty at all with: a.Any of your usual A little bit of difficulty work, housework or school activities b. Your usual A little bit of difficulty hobbies, recreational or sporting activities c. Getting into or A little bit of difficulty out of the bath d. Walking between A little bit of difficulty rooms e. Putting on your A little bit of difficulty shoes or socks f. Squatting A little bit of difficulty g. Lifting an object No difficulty , like a bag of groceries from the floor h. Performing light A little bit of difficulty activities around your home i. Performing heavy Moderate difficulty activities around your home j. Getting into or A little bit of difficulty out of a car k. Walking 2 blocks Moderate difficulty l. Walking a mile Quite a bit of difficulty m. Going up or down Moderate difficulty 10 stairs (about 1 flight of stairs) n. Standing for 1 A little bit of difficulty hour o. Sitting for 1 No difficulty hour p. Running on even Quite a bit of difficulty ground q. Running on uneven Extreme difficulty or unable to perform activity ground r. Making sharp Extreme difficulty or unable to perform activity turns while running fast s. Hopping Extreme difficulty or unable to perform activity t. Rolling over in A little bit of difficulty bed LEFI Score Lower Extremity 46 Functional Index Score Outpatient Therapy Assessment Impairments Problems/ Palpation Tenderness,Impaired Range of Motion,Impaired Impairmments Strength,Impaired Endurance,Impaired Gait Pattern, Impaired Walking,Impaired Standing,Impaired Household Care,Impaired Stair Climbing,Impaired Incline Stepping, Impaired Stepping on Uneven Surface,Impaired Recreational Activities,Impaired Running,Subjective C/O Pain,Impaired Self Care/Self Management Prognosis Rehab Potential Good Comment Skilled therapy is indicated to reduce pain, improve ROM of the R ankle, increase ability to ambulate, and improve balance in order to return pt to PLOF. Clinical Impression Consistent with Yes Diagnosis PT Patient Goals PT Patient Goals PT Short Term In 2 wks pt will complete these goals in order to aid Patient Goals improvement in function specifically with all ADLs: 1) Increase LEFS to 50 or more 2) Decrease pain in R ankle at worst to 3/10 PT Dental Hygienist Patient In 4 wks pt will complete these goals in order to aid Goals improvement in function specifically with all ADLs: 1) Increase LEFS to 60 or more 2) Decrease pain in R ankle at worst to 1/10 3) Perform 1 flight of stairs without pain 4) Ambulate > 10 min without pain in R ankle. Outpatient Therapy Plan of Care Treatment Plan May Include Therapeutic Exercise Yes Including Home Exercise Program Manual Therapy Yes Techniques Neuromuscular Re- Yes education Therapeutic Yes Activities to Return to Previous Functional/Work Level Gait Training Yes ADL/Self Care Yes Education Thermal Modalities Yes Electrical Yes Stimulation Ultrasound/ Yes Phonophoresis Orthotics/Bracing/ Yes Splinting Eval/Re-Eval Yes Frequency Times per week 2 Duration Number of Weeks 4 Addendums This patient is a No candidate for social or vocational rehab ? Patient/Guardian Yes verbally acknowledges understanding of treatment program and consents to further treatment? Patient/Guardian Yes verbally acknowledges understanding of diagnosis, prognosis and goals for treatment? Eval Complexity PT Charges 31953 - Moderate Complexity Shoulder/Elbow Eval Shoulder Objective Measurements Elbow Objective Measurements PHYSICIAN CERTIFICATION: I certify the specified therapy services for Faye Rowland are required, authorized, and reviewed every 30 days.
== END 2025-07-20 23:59 | disposition home or self-care (01) ==
LOC: PT 13:09
PROVIDERS: PCP Family Medicine; Visit Provider Student in an Organized Health Care Education/Training Program
DX: S93.409A Sprain of unspecified ligament of unspecified ankle, initial encounter (principal)
CPT/HCPCS: 97162